=== PATIENT | male | born 1945 | race Caucasian/White ===

== ENCOUNTER 2016-09-10 12:27 | Inpatient (IN) | payer MEDICARE, OTHER ==
--- NOTE | 2016-09-10 12:33 | ER Document Report ---
ED General - General Stated Complaint: ALTERED MENTAL STATUS Time Seen by Provider: 09/10/16 12:29 Mode of Arrival: Medic Information source: Emergency Med Personnel TRAVEL OUTSIDE OF THE [place] IN LAST 30 DAYS: No - HPI Patient complains to provider of: Altered mental status, recent fall Onset: Yesterday Onset/Duration: Gradual Quality of pain: Achy Severity: Moderate Pain Level: 3 Associated symptoms: Slow to respond Notes: Patient is a 71-year-old male brought to the emergency room by EMS for change in mental status, a caregiver reports that he stopped out to the house yesterday to see patient, he had a slip and fall resulting in injury to his right forearm, EMS came out to the house but patient refused to come to the emergency room to be seen, the caregiver stop back again today, found patient in same position that he was in yesterday as though he had not moved at all, he likely did not eat or drink anything, caregiver reports patient has altered mental status, as he is normally awake and alert, ambulates throughout his house on his own as he lives alone and cares for himself, however today was different, when EMS arrived patient is noted to be severely hypotensive and hypoxic, patient's mental status is altered at this point and he is unable to provide any further information - Related Data Allergies/Adverse Reactions: No Known Allergies Allergy (Verified 09/10/16 13:09) Home Medications: Current Home Medications Aspirin [Aspirin 81 mg Chewable Tablet] 81 mg PO DAILY 09/10/16 [History] Lisinopril [Zestril] 40 mg PO 09/10/16 [History] Past Medical History - General Information source: Friend - Social History Smoking Status: Unknown if Ever Smoked Family History: Reviewed & Not Pertinent - Past Medical History Cardiac Medical History: Reports: Hx Hypertension Review of Systems - Review of Systems -: Yes ROS unobtainable due to patient's medical condition Neurological/Psychological: Confusion Physical Exam - Vital signs Vitals: Temp Resp Pulse Ox 98.1 F 20 100 09/10/16 12:30 09/10/16 12:30 09/10/16 12:30 Interpretation: Hypotensive - General General appearance: Lethargic In distress: Severe - HEENT Head: Normocephalic, Atraumatic Eyes: Normal Conjunctiva: Purulent discharge - Small amount of discharge with crusting on the eye lashes Eyelashes: Matted Pupils: PERRL Mucous membranes: Dry Pharynx: Normal Neck: Normal - Respiratory Respiratory status: Respiratory distress, Depressed respirations, Tachypnea Chest status: Nontender Breath sounds: Decreased air movement - Cardiovascular Rhythm: Regular Heart sounds: Normal auscultation - Abdominal Inspection: Other - Emaciated Distension: No distension Bowel sounds: Hypoactive Tenderness: Nontender Organomegaly: No organomegaly - Back Back: Normal - Extremities Forearm: Other - Right forearm swelling with erythema and abrasions, tender to palpate, distal sensation and motor is intact with 2+ radial pulses and brisk capillary refill Thigh: Other - Large skin tear to the right lateral thigh - Neurological Cognition: Confused Orientation: Disoriented to place, Disoriented to time, Disoriented to events Edmond Coma Scale Eye Opening: To Voice Edmond Coma Scale Verbal: Confused Bricelyn Coma Scale Motor: Obeys Commands Edmond Coma Scale Total: 13 - Skin Skin Moisture: Dry Skin Color: Pale Course - Re-evaluation Re-evalutation: 09/10/16 17:38 Patient arrived in distress with hypotension, hypoxia, requiring immediate attention and intervention, labs are consistent with severe rhabdomyolysis with kidney failure and liver enzyme elevation, requiring admission to the ICU - Vital Signs Vital signs: Temp Pulse Resp BP Pulse Ox 98.6 F 72 22 H 89/67 L 100 09/10/16 17:20 09/10/16 17:20 09/10/16 17:20 09/10/16 17:20 09/10/16 17:20 - Laboratory Result Diagrams: 09/10/16 13:32 09/10/16 13:32 Laboratory results interpreted by me: 09/10/16 09/10/16 09/10/16 12:50 13:32 13:32 WBC Seg Neuts % (Manual) Lymphocytes % (Manual) Abs Neuts (Manual) Abs Lymphs (Manual) Sodium 151.5 H Chloride 113 H BUN 105 H Creatinine 6.05 H Est GFR ( Amer) 11 L Est GFR (Non-Af Amer) 9 L Calcium 7.2 L Direct Bilirubin 0.5 H AST 1291 H ALT 330 H Creatine Kinase CK-MB (CK-2) 296.00 H Total Protein 5.9 L Albumin 3.4 L Urine Protein 100 H Urine Blood LARGE H Urine Urobilinogen 2.0 H 09/10/16 09/10/16 13:32 13:32 WBC 12.5 H Seg Neuts % (Manual) 95 H Lymphocytes % (Manual) 1 L Abs Neuts (Manual) 11.9 H Abs Lymphs (Manual) 0.1 L Sodium Chloride BUN Creatinine Est GFR ( Amer) Est GFR (Non-Af Amer) Calcium Direct Bilirubin AST ALT Creatine Kinase 30702 H CK-MB (CK-2) Total Protein Albumin Urine Protein Urine Blood Urine Urobilinogen - Diagnostic Test Radiology reviewed: Image reviewed, Reports reviewed - EKG Interpretation by Mi EKG shows normal: Sinus rhythm Rate: Normal Rhythm: NSR - Transfer of Care Care transferred to following provider: Dr Rodriguez Critical Care Note - Critical Care Note Total time excluding time spent on procedures (mins): 60 Comments: Patient arrived with altered mental status, hypotension and hypoxia, requiring immediate attention, labs consistent with severe rhabdomyolysis with kidney and liver failure, requiring admission to the ICU Discharge - Discharge Clinical Impression: Encephalopathy Rhabdomyolysis Qualifiers: Rhabdomyolysis type: non-traumatic Qualified Code(s): M62.82 - Rhabdomyolysis Condition: Serious Disposition: ADMITTED INPATIENT Admitting Provider: Michael Unit Admitted: ICU
[2016-09-10 13:04] LABS: VENOUS BLOOD BASE EXCESS -4.8 mmol/L; VENOUS BLOOD HCO3 20.6 mmol/L (20-32); VENOUS BLOOD PCO2 39.3 mmHg (35-63); VENOUS BLOOD PH 7.34 (7.30-7.42)
[2016-09-10 13:08] LABS: AMORPHOUS SEDIMENT,URINE TRACE /HPF; APPEARANCE,URINE SLIGHTLY-CLOUDY; BILIRUBIN,URINE NEGATIVE (NEGATIVE); GLUCOSE, URINE NEGATIVE (NEGATIVE); KETONES,URINE NEGATIVE (NEGATIVE); LEUKOCYTE ESTERASE,URINE NEGATIVE (NEGATIVE); NITRITE,URINE NEGATIVE (NEGATIVE); PROTEIN,URINE 100 mg/dL (NEGATIVE); URINE SPECIFIC GRAVITY 1.026
--- NOTE | 2016-09-10 13:29 | RADIOLOGY REPORT (SQ) ---
EXAM DESCRIPTION: CT HEAD WITHOUT COMPLETED DATE/TIME: 09/10/2016 1:14 pm REASON FOR STUDY: ams COMPARISON: 12/24/2015 TECHNIQUE: Axial images acquired through the brain without intravenous contrast. Images reviewed wi th bone, brain and subdural windows. Images stored on PACS. All CT scanners at this facility use dose modulation, iterative reconstruction, and/or weight based d osing when appropriate to reduce radiation dose to as low as reasonably achievable (ALARA). [facility]: Dose Right [facility]: CareDose [facility]: Dose Right [facility]: Teradose 4D [facility]: Smart [employer] RADIATION DOSE: Up-to-date CT equipment and radiation dose reduction techniques were employed. CTDIv ol: 49.0 mGy. DLP: 881 mGy-cm.mGy. LIMITATIONS: None. FINDINGS: VENTRICLES: Prominent. CEREBRUM: No masses. No hemorrhage. No midline shift. Areas of low density in the white matter mos t likely due to chronic micro-vascular ischemic change. No evidence for acute infarction. CEREBELLUM: No masses. No hemorrhage. No alteration of density. No evidence for acute infarction. EXTRAAXIAL SPACES: Age-related involutional change. No fluid collections. No masses. ORBITS AND GLOBE: No intra- or extraconal masses. Normal contour of globe without masses. CALVARIUM: No fracture. PARANASAL SINUSES: No fluid or mucosal thickening. SOFT TISSUES: No mass or hematoma. OTHER: No other significant finding. IMPRESSION: CHRONIC CHANGES OF ATROPHY AND MICROVASCULAR ISCHEMIA. NO ACUTE PROCESS. TECHNICAL DOCUMENTATION: JOB ID: [id number] Quality ID # [id number]: Final reports with documentation of one or more dose reduction techniques (e.g., Au tomated exposure control, adjustment of the mA and/or kV according to patient size, use of iterative reconstruction technique) 2010 [employer]- All Rights Reserved
[2016-09-10] MEDS: NORMAL SALINE 1000 ML 1,000 ML IV PRN ×2 (13:31→13:48)
[2016-09-10 13:49] LABS: HEMATOCRIT 46.3 % (37.9-51.0); HEMOGLOBIN 15.6 g/dL (13.5-17.0); HGB HCT DIFFERENCE 0.5; MEAN CORPUSCULAR HEMOGLOBIN 30.9 pg (27.0-33.4); MEAN CORPUSCULAR HGB CONC 33.7 g/dL (32.0-36.0); MEAN CORPUSCULAR VOLUME 92 fl (80-97); RED BLOOD COUNT 5.05 10^6/uL (4.35-5.55); RED CELL DISTRIBUTION WIDTH 13.7 % (11.5-14.0); WHITE BLOOD COUNT 12.5 10^3/uL (4.0-10.5)
[2016-09-10 14:03] LABS: ALANINE AMINOTRANSFERASE 330 U/L (21-72); ALBUMIN 3.4 g/dL (3.5-5.0); ALKALINE PHOSPHATASE 55 U/L (38-126); ANION GAP 17 (5-19); BILIRUBIN,DIRECT 0.5 mg/dL (0.0-0.4); BILIRUBIN,TOTAL 1.1 mg/dL (0.2-1.3); BLOOD UREA NITROGEN 105 mg/dL (7-20); CALCIUM 7.2 mg/dL (8.4-10.2); CARBON DIOXIDE 22 mmol/L (22-30); CHLORIDE 113 mmol/L (98-107); CREATININE RESULT 6.05 mg/dL (0.52-1.25); GLUCOSE 94 mg/dL (75-110); POTASSIUM 4.6 mmol/L (3.6-5.0); SODIUM 151.5 mmol/L (137-145); TOTAL PROTEIN 5.9 g/dL (6.3-8.2)
[2016-09-10 14:12] LABS: BASOPHILS % (MANUAL) 0 % (0-2); EOSINOPHILS % (MANUAL) 0 % (0-6); LYMPHOCYTES % (MANUAL) 1 % (13-45); TOTAL CELLS COUNTED 100
[2016-09-10 14:13] LABS: RBC MORPHOLOGY COMMENT NORMO-CYTIC/CHROMIC
[2016-09-10] MEDS ORDERED: NORMAL SALINE 1000 ML 1,000 ML IV PRN ×3 (14:13→15:45)
[2016-09-10 14:17] LABS: ALCOHOL < 10 mg/dL (NONE DETECTED); ASPARTATE AMINO TRANSFERASE 1291 U/L (17-59)
[2016-09-10 14:19] LABS: TROPONIN I 0.233 ng/mL
--- NOTE | 2016-09-10 14:20 | RADIOLOGY REPORT (SQ) ---
EXAM DESCRIPTION: FOREARM RIGHT COMPLETED DATE/TIME: 09/10/2016 2:10 pm REASON FOR STUDY: fall COMPARISON: None. NUMBER OF VIEWS: Two views. TECHNIQUE: Two radiographic images acquired of the right forearm, including elbow and wrist in at le ast one projection. LIMITATIONS: None. FINDINGS: MINERALIZATION: Normal. BONES: No acute fracture. No worrisome bone lesions. SOFT TISSUES: No obvious swelling or foreign body. OTHER: No other significant finding. IMPRESSION: NEGATIVE STUDY OF THE RIGHT FOREARM. NO RADIOGRAPHIC EVIDENCE OF ACUTE INJURY. TECHNICAL DOCUMENTATION: JOB ID: [id number] [employer]- All Rights Reserved
--- NOTE | 2016-09-10 14:20 | RADIOLOGY REPORT (SQ) ---
EXAM DESCRIPTION: CHEST SINGLE VIEW COMPLETED DATE/TIME: 09/10/2016 2:10 pm REASON FOR STUDY: ams COMPARISON: None. EXAM PARAMETERS: NUMBER OF VIEWS: One view. TECHNIQUE: Single frontal radiographic view of the chest acquired. RADIATION DOSE: NA LIMITATIONS: None. FINDINGS: LUNGS AND PLEURA: No opacities, masses or pneumothorax. No pleural effusion. MEDIASTINUM AND HILAR STRUCTURES: No masses. Contour normal. HEART AND VASCULAR STRUCTURES: Heart normal in size. Normal vasculature. BONES: No acute findings. HARDWARE: None in the chest. OTHER: No other significant finding. IMPRESSION: NO ACUTE RADIOGRAPHIC FINDING IN THE CHEST. TECHNICAL DOCUMENTATION: JOB ID: [id number]
--- NOTE | 2016-09-10 14:21 | RADIOLOGY REPORT (SQ) ---
EXAM DESCRIPTION: PELVIS AP COMPLETED DATE/TIME: 09/10/2016 2:10 pm REASON FOR STUDY: fall COMPARISON: None. NUMBER OF VIEWS: One view TECHNIQUE: AP Pelvis LIMITATIONS: None. FINDINGS: MINERALIZATION: Normal. HIPS: No acute fracture or dislocation. No worrisome bone lesions. PELVIS AND SACRUM: No acute fracture or dislocation. No worrisome bone lesions. PUBIS AND ISCHIUM: No acute fracture. LOWER LUMBAR SPINE: No significant findings as visualized. SOFT TISSUES: No findings. OTHER: No other significant finding. IMPRESSION: NEGATIVE STUDY OF THE PELVIS. TECHNICAL DOCUMENTATION: JOB ID: [id number] [employer]- All Rights Reserved
[2016-09-10] MEDS ORDERED: SODIUM BICARBONATE IV ONE ×2 (15:07)
[2016-09-10] MEDS ORDERED: NORMAL SALINE IV ONE ×2 (15:07)
[2016-09-10] MEDS ORDERED: SODIUM BICARBONATE 0 ML IV ONE (15:40)
[2016-09-10] MEDS ORDERED: SODIUM BICARBONATE 8.4% INJ 50 MEQ/50 ML DISP.SYRIN IV ONE (15:47)
[2016-09-10] MEDS ORDERED: ADENOSINE INJ/PF 6 MG/2 ML SDV IV ONE (16:09)
--- NOTE | 2016-09-10 16:14 | PDOC H&P ---
History of Present Illness Admission Date/PCP: 09/10/16 15:25 RUPESH FERNÁNDEZ MD Patient complains of: laid on floor last night History of Present Illness: PATRICE WISDOM is a 71 year old male with lewy body dementia since last year on donepezil from [facility] with parkinsons syndrome on rasagiline from Dr Mendez. [facility] said to stop quetiapine. Last month pressure was 168, and I increased lisinopril to 40mg daily. 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 Psychiatric Medical History: Reports: Dementia Traumatic Medical History: Reports: None Hematology: Reports: None Infectious Medical History: Reports: None Past Surgical History Past Surgical History: Reports: Other - melanoma Social History Information Source: Office Lives with: Alone Smoking Status: Never Smoker Frequency of Alcohol Use: Rare Hx Recreational Drug Use: No Drugs: None Hx Prescription Drug Abuse: No - Advance Directive Resuscitation Status: Full Code Family History Family History: Reviewed & Not Pertinent Parental Family History Reviewed: Yes Children Family History Reviewed: Yes Sibling(s) Family History Reviewed.: Yes Medication/Allergy Home Medications: Donepezil HCl 10 mg PO QHS 12/26/15 Rasagiline Mesylate [Azilect] 1 mg PO DAILY 12/26/15 Aspirin [Aspirin 81 mg Chewable Tablet] 81 mg PO DAILY 09/10/16 Lisinopril [Zestril] 40 mg PO 09/10/16 Allergies/Adverse Reactions: No Known Allergies Allergy (Verified 09/10/16 13:09) Review of Systems ROS unobtainable: Due to mental status Constitutional: ABSENT: fever(s), headache(s), weight loss Cardiovascular: ABSENT: chest pain, dyspnea on exertion, orthropnea Respiratory: ABSENT: cough Gastrointestinal: PRESENT: constipation, vomiting. ABSENT: diarrhea, hematochezia Genitourinary: ABSENT: dysuria, hematuria Neurological: PRESENT: frequent falls, memory loss, tremor(s) Physical Exam Vital Signs: Temp Pulse Resp BP Pulse Ox 98.1 F 25 H 109/73 100 09/10/16 12:30 09/10/16 15:16 09/10/16 15:16 09/10/16 15:16 General appearance: PRESENT: mild distress Eye exam: PRESENT: EOMI. ABSENT: conjunctival injection, nystagmus, scleral icterus Mouth exam: PRESENT: dry mucosa Neck exam: ABSENT: lymphadenopathy, thyromegaly, tracheal deviation Respiratory exam: PRESENT: clear to auscultation michael Cardiovascular exam: ABSENT: diastolic murmur, irregular rhythm, systolic murmur GI/Abdominal exam: ABSENT: mass, organolmegaly, tenderness Extremities exam: ABSENT: pedal edema Neurological exam: PRESENT: altered, oriented to time, other - diffuse rigidity & bradykinesia. ABSENT: motor sensory deficit, aphasic Psychiatric exam: PRESENT: appropriate affect Focused psych exam: ABSENT: psychomotor agitation Skin exam: PRESENT: skin tears - volar R forearm Results Laboratory Results: Abnormal - 24 hr 09/10/16 09/10/16 09/10/16 12:50 13:32 13:32 WBC Seg Neuts % (Manual) Lymphocytes % (Manual) Abs Neuts (Manual) Abs Lymphs (Manual) Sodium 151.5 H Chloride 113 H BUN 105 H Creatinine 6.05 H Est GFR ( Amer) 11 L Est GFR (Non-Af Amer) 9 L Calcium 7.2 L Direct Bilirubin 0.5 H AST 1291 H ALT 330 H Creatine Kinase CK-MB (CK-2) 296.00 H Total Protein 5.9 L Albumin 3.4 L Urine Protein 100 H Urine Blood LARGE H Urine Urobilinogen 2.0 H 09/10/16 09/10/16 13:32 13:32 WBC 12.5 H Seg Neuts % (Manual) 95 H Lymphocytes % (Manual) 1 L Abs Neuts (Manual) 11.9 H Abs Lymphs (Manual) 0.1 L Sodium Chloride BUN Creatinine Est GFR ( Amer) Est GFR (Non-Af Amer) Calcium Direct Bilirubin AST ALT Creatine Kinase 03574 H CK-MB (CK-2) Total Protein Albumin Urine Protein Urine Blood Urine Urobilinogen Impressions: Chest X-Ray 09/10/16 12:29 IMPRESSION: NO ACUTE RADIOGRAPHIC FINDING IN THE CHEST. Forearm X-Ray 09/10/16 12:30 IMPRESSION: NEGATIVE STUDY OF THE RIGHT FOREARM. NO RADIOGRAPHIC EVIDENCE OF ACUTE INJURY. Head CT 09/10/16 12:30 IMPRESSION: CHRONIC CHANGES OF ATROPHY AND MICROVASCULAR ISCHEMIA. NO ACUTE PROCESS. Pelvis X-Ray 09/10/16 12:30 IMPRESSION: NEGATIVE STUDY OF THE PELVIS. Assessment & Plan - Diagnosis (1) Rhabdomyolysis Qualifiers: Rhabdomyolysis type: non-traumatic Qualified Code(s): M62.82 - Rhabdomyolysis Is this a current diagnosis for this admission?: YesPlan: saline (2) GORGE (acute kidney injury) Is this a current diagnosis for this admission?: YesPlan: saline (3) Lewy body Parkinson disease Is this a current diagnosis for this admission?: YesPlan: rasagiline nonformulary. Consider ropinarole. - Inpatient Certification Based on my medical assessment, after consideration of the patient's comorbidities, presenting symptoms, or acuity I expect that the services needed warrant INPATIENT care.: Yes I certify that my determination is in accordance with my understanding of Medicare's requirements for reasonable and necessary INPATIENT services [42 CFR 412.3e].: Yes Medical Necessity: Significant Comorbidiites Make Outpatient Treatment Too Risky , Need Close Monitoring Due to Risk of Patient Decompensation, Need For IV Fluids, Need For Continuous Telemetry Monitoring, Risk of Complication if Not Cared For in Hospital, Risk of Diagnosis Which Will Require Inpatient Eval/Care/ Monitoring
[2016-09-10] MEDS ORDERED: BENZTROPINE MESYLATE INJ 2 MG/2 ML AMPULE IM ONE (17:00)
--- NOTE | 2016-09-10 17:11 | EKG REPORT ---
SEVERITY:- OTHERWISE NORMAL ECG - SINUS RHYTHM ATRIAL PREMATURE COMPLEX LOW VOLTAGE IN FRONTAL LEADS : Confirmed by: Ivon Velazquez MD 10-Sep-2016 17:10:14
--- NOTE | 2016-09-10 17:11 | EKG REPORT ---
SEVERITY:- BORDERLINE ECG - SINUS RHYTHM BORDERLINE T ABNORMALITIES, ANT-LAT LEADS : Confirmed by: Ivon Velazquez MD 10-Sep-2016 17:11:20
[2016-09-10] MEDS ORDERED: DEXTROSE 50%-WATER 25 GM/50 ML DISP.SYRIN IV ONE ×2 (17:29→19:00)
[2016-09-10] MEDS ORDERED: DEXTROSE 40% GEL 15 GM TUBE X 2 PO PRN ×2 (19:04→19:31)
[2016-09-10] MEDS ORDERED: DEXTROSE 40% GEL 15 GM TUBE PO PRN ×2 (19:04→19:31)
[2016-09-10] MEDS ORDERED: DEXTROSE 50%-WATER SYRINGE 25 GM/50 ML DOSE IV PRN ×2 (19:04→19:31)
[2016-09-10] MEDS ORDERED: GLUCAGON,HUMAN RECOMB 1 MG INJ IM PRN ×2 (19:04→19:31)
[2016-09-10] MEDS ORDERED: DEXTROSE 50%-WATER SYRINGE 12.5 GM/25 ML DOSE IV PRN ×2 (19:04→19:31)
[2016-09-10] MEDS ORDERED: INSULIN REG, HUMAN 100 UNIT/ML 3 ML VIAL (PYX) SUBCUT PRN (19:31)
[2016-09-10] MEDS: DEXTROSE 5%-NORMAL SALINE 1,000 ML IV PRN (21:11)
[2016-09-10] MEDS: FAMOTIDINE INJ/PF 20 MG/2 ML SDV IV SCH (21:11)
[2016-09-11] MEDS: DEXTROSE 5%-NORMAL SALINE 1,000 ML IV PRN ×2 (01:54→05:33)
--- NOTE | 2016-09-11 07:19 | PDOC PROGRESS REPORT ---
Subjective Progress Note for:: 09/11/16 Subjective:: moans Physical Exam Vital Signs: Temp Pulse Resp BP Pulse Ox 98.6 F 63 15 94/73 L 100 09/10/16 17:20 09/10/16 20:00 09/11/16 06:00 09/11/16 05:07 09/11/16 06:00 Intake & Output 09/09/16 09/10/16 09/11/16 07:59 07:59 07:59 Intake Total 3005 Output Total 275 Balance 2730 Weight 158 lb 15.253 oz General appearance: PRESENT: mild distress Respiratory exam: PRESENT: clear to auscultation michael Cardiovascular exam: ABSENT: diastolic murmur, irregular rhythm, systolic murmur GI/Abdominal exam: ABSENT: mass, organolmegaly, tenderness Neurological exam: PRESENT: altered Skin exam: PRESENT: other - bulla broke:R [id number]/R hip6cm. Stage 1 purple decub L hip8cm Results Laboratory Results: Abnormal - 24 hr 09/10/16 09/10/16 09/10/16 12:50 13:32 13:32 WBC Seg Neuts % (Manual) Lymphocytes % (Manual) Abs Neuts (Manual) Abs Lymphs (Manual) Sodium 151.5 H Chloride 113 H BUN 105 H Creatinine 6.05 H Est GFR ( Amer) 11 L Est GFR (Non-Af Amer) 9 L POC Glucose Calcium 7.2 L Direct Bilirubin 0.5 H AST 1291 H ALT 330 H Creatine Kinase CK-MB (CK-2) 296.00 H Total Protein 5.9 L Albumin 3.4 L Urine Protein 100 H Urine Blood LARGE H Urine Urobilinogen 2.0 H 09/10/16 09/10/16 09/10/16 13:32 13:32 17:26 WBC 12.5 H Seg Neuts % (Manual) 95 H Lymphocytes % (Manual) 1 L Abs Neuts (Manual) 11.9 H Abs Lymphs (Manual) 0.1 L Sodium Chloride BUN Creatinine Est GFR ( Amer) Est GFR (Non-Af Amer) POC Glucose 61 L Calcium Direct Bilirubin AST ALT Creatine Kinase 00750 H CK-MB (CK-2) Total Protein Albumin Urine Protein Urine Blood Urine Urobilinogen 09/10/16 09/10/16 09/11/16 19:15 22:14 01:16 WBC Seg Neuts % (Manual) Lymphocytes % (Manual) Abs Neuts (Manual) Abs Lymphs (Manual) Sodium Chloride BUN Creatinine Est GFR ( Amer) Est GFR (Non-Af Amer) POC Glucose 148 H Calcium Direct Bilirubin AST ALT Creatine Kinase 20338 H 87336 H CK-MB (CK-2) Total Protein Albumin Urine Protein Urine Blood Urine Urobilinogen Impressions: Chest X-Ray 09/10/16 12:29 IMPRESSION: NO ACUTE RADIOGRAPHIC FINDING IN THE CHEST. Forearm X-Ray 09/10/16 12:30 IMPRESSION: NEGATIVE STUDY OF THE RIGHT FOREARM. NO RADIOGRAPHIC EVIDENCE OF ACUTE INJURY. Head CT 09/10/16 12:30 IMPRESSION: CHRONIC CHANGES OF ATROPHY AND MICROVASCULAR ISCHEMIA. NO ACUTE PROCESS. Pelvis X-Ray 09/10/16 12:30 IMPRESSION: NEGATIVE STUDY OF THE PELVIS. Assessment & Plan - Diagnosis (1) Rhabdomyolysis Qualifiers: Rhabdomyolysis type: non-traumatic Qualified Code(s): M62.82 - Rhabdomyolysis Is this a current diagnosis for this admission?: YesPlan: peaked. Slowed ivf for oliguria (2) GORGE (acute kidney injury) Is this a current diagnosis for this admission?: YesPlan: consult nephrology (3) Lewy body Parkinson disease Is this a current diagnosis for this admission?: YesPlan: still rigid inspite of benztropine. No gag so npo - Inpatient Certification Medical Necessity: Significant Comorbidiites Make Outpatient Treatment Too Risky , Need Close Monitoring Due to Risk of Patient Decompensation, Need For IV Fluids, Need For Continuous Telemetry Monitoring, Risk of Complication if Not Cared For in Hospital, Risk of Diagnosis Which Will Require Inpatient Eval/Care/ Monitoring
[2016-09-11 07:32] LABS: ABSOLUTE LYMPHOCYTES (AUTO) 0.9 10^3/uL (0.5-4.7); ABSOLUTE MONOCYTES (AUTO) 0.6 10^3/uL (0.1-1.4); ABSOLUTE NEUT (AUTO) 5.8 10^3/uL (1.7-8.2); BASOPHILS % (AUTO) 0.2 % (0-2); HEMATOCRIT 37.3 % (37.9-51.0); HGB HCT DIFFERENCE 0.2; LYMPHOCYTES % (AUTO) 12.5 % (13-45); MEAN CORPUSCULAR HEMOGLOBIN 31.1 pg (27.0-33.4); MEAN CORPUSCULAR HGB CONC 33.5 g/dL (32.0-36.0); MEAN CORPUSCULAR VOLUME 93 fl (80-97); MONOCYTES % (AUTO) 8.2 % (3-13); RED BLOOD COUNT 4.02 10^6/uL (4.35-5.55); SEGMENTED NEUTROPHILS % (AUTO) 79.1 % (42-78); WHITE BLOOD COUNT 7.3 10^3/uL (4.0-10.5)
[2016-09-11 07:47] LABS: HEMOGLOBIN 12.5 g/dL (13.5-17.0)
[2016-09-11 07:52] LABS: ALANINE AMINOTRANSFERASE 378 U/L (21-72); ALBUMIN 2.2 g/dL (3.5-5.0); ALKALINE PHOSPHATASE 39 U/L (38-126); ANION GAP 11 (5-19); BILIRUBIN,DIRECT 0.4 mg/dL (0.0-0.4); BILIRUBIN,TOTAL 0.8 mg/dL (0.2-1.3); BLOOD UREA NITROGEN 102 mg/dL (7-20); CARBON DIOXIDE 16 mmol/L (22-30); CHLORIDE 125 mmol/L (98-107); CREATININE RESULT 5.38 mg/dL (0.52-1.25); GLUCOSE 152 mg/dL (75-110); MAGNESIUM 2.6 mg/dL (1.6-2.3); PHOSPHORUS 7.1 mg/dL (2.5-4.5); POTASSIUM 4.7 mmol/L (3.6-5.0); SODIUM 152.3 mmol/L (137-145); TOTAL PROTEIN 4.2 g/dL (6.3-8.2)
[2016-09-11 08:01] LABS: ASPARTATE AMINO TRANSFERASE 1152 U/L (17-59)
[2016-09-11 08:07] LABS: CALCIUM 5.8 mg/dL (8.4-10.2)
[2016-09-11 08:22] LABS: CREATINE KINASE 67956 U/L (55-170)
[2016-09-11] MEDS ORDERED: DEXTROSE 5%-WATER 1000 ML 1,000 ML with SODIUM BICARBONATE 150 MEQ IV PRN ×2 (09:47)
[2016-09-11] MEDS ORDERED: HEPARIN SOD (PORCINE) 1,000 UNIT/ML 10 ML VIAL IV PRN ×2 (09:51→15:28)
[2016-09-11] MEDS ORDERED: ENOXAPARIN SODIUM INJ 30 MG/0.3 ML DISP.SYRIN SUBCUT SCH (10:00)
[2016-09-11] MEDS: FAMOTIDINE INJ/PF 20 MG/2 ML SDV IV SCH ×2 (10:22→21:13)
[2016-09-11] MEDS: 1/2 NORMAL SALINE 1,000 ML with SODIUM BICARBONATE 50 MEQ IV PRN ×2 (10:38)
[2016-09-11] MEDS ORDERED: CALCIUM GLUCONATE 1000 MG/10 ML INJ IV ONE (11:00)
[2016-09-11] MEDS ORDERED: CEFTRIAXONE 1 GM/D5W RTU 1 GM/50 ML RTUPB IV ONE (11:00)
[2016-09-11] MEDS ORDERED: CALCIUM GLUCONATE 1,000 MG in DEXTROSE 5%-WATER 50 ML IV ONE (11:00)
--- NOTE | 2016-09-11 12:09 | EKG REPORT ---
SEVERITY:- ABNORMAL ECG - ATRIAL FLUTTER, CANNOT BE EXCLUDED ,BUT THERE ARE BASELINE ARTIFACTS.REPEAT EKG MULTIFORM VENTRICULAR PREMATURE COMPLEXES LOW VOLTAGE IN FRONTAL LEADS : Confirmed by: Ivon Velazquez MD 11-Sep-2016 12:08:52
[2016-09-11] MEDS ORDERED: LIDOCAINE 1% INJ-PF (10 MG/ML) 30 ML SDV ONE (12:24)
--- NOTE | 2016-09-11 13:24 | OPERATIVE REPORT E ---
Operative Report NAME: PATRICE WISDOM : 1945 AGE: 71Y DATE OF SURGERY: 09/11/2016 ROOM: 607 PREOPERATIVE DIAGNOSIS: Acute renal failure needing dialysis access. POSTOPERATIVE DIAGNOSIS: Acute renal failure needing dialysis access. PROCEDURE: Placement of the right femoral dialysis catheter under ultrasound guidance. SURGEON: ISAIAH MIDDLETON M.D. ANESTHESIA: Local. INDICATION: This is a 71-year-old male who needed IV access for hemodialysis. DESCRIPTION OF PROCEDURE: After adequate placement of patient in a supine position, the right groin was then prepped and draped in the usual sterile fashion. We used an ultrasound and the right femoral vein was identified. Local anesthesia was infiltrated along the right femoral vein site and the vein was then punctured percutaneously and a guidewire pressed through the needle into the vein and towards the inferior vena cava. Needle was removed and the puncture site enlarged. A dialysis catheter was then inserted through the wire towards the area of the inferior vena cava. The whole catheter was inserted through the hub and just allowing 1 cm from the puncture site allowing a biopatch to be placed under it. Next, the catheter was then anchored to the skin with 3-0 nylon. All the port sites were irrigated with saline solution after aspirating blood easily. Sterile dressing was placed over the insertion site. The patient tolerated the procedure well. Patient to have hemodialysis today through the catheter site. Patient tolerated procedure well. DICTATING PHYSICIAN: ISAIAH MIDDLETON M.D. [id number] PHY#: [id number] ID: [id number] JOB#: [id number] ACCT: [id number] cc:ISAIAH MIDDLETON M.D. > MTDD
[2016-09-11] MEDS ORDERED: CALCIUM GLUCONATE 1,000 MG in DEXTROSE 5%-WATER 50 ML IV SCH (14:00)
--- NOTE | 2016-09-11 14:13 | PDOC CONSULTATION ---
Consultation Consult Date: 09/11/16 Consult reason:: AK I, oligo anuric. 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 Patient rather poorly responsive at the time. Unsure exactly how long he was on the floor. According to his stepson the patient lives by himself and is able to do most of his ADLs by himself. Patient was evaluated in the ER and found to have GORGE secondary to severe rhabdomyolysis. He was begun on IV fluid hydration. He was very poorly responsive. He is admitted to ICU.He has received approximately 8 L of fluid but is now currently oligo anuric. Patient is poorly responsive to your questions. He rather just moans. Tries to answer some questions but is able to just mumble. He is quite stiff and is not moving his limbs at all. Other evaluations revealed that his labs shows that he is got hyponatremia, hypocalcemia, hyperphosphatemia and GORGE. 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 Children Family History Reviewed: Yes - Denies Any Family History of CKD. Sibling(s) Family History Reviewed.: Yes Medication/Allergy Home Medications: Donepezil HCl 10 mg PO QHS 12/26/15 Rasagiline Mesylate [Azilect] 1 mg PO DAILY 12/26/15 Aspirin [Aspirin 81 mg Chewable Tablet] 81 mg PO DAILY 09/10/16 Lisinopril [Zestril] 40 mg PO DAILY 09/10/16 Quetiapine Fumarate 100 mg PO QHS 09/10/16 Allergies/Adverse Reactions: No Known Allergies Allergy (Verified 09/10/16 13:09) Review of Systems Review of Systems: Unable to be obtained as patient is quite obtunded. However I had a lengthy discussion with the stepson who was by the bedside. Chart was reviewed and discussions were done with the treating nurse as well. Physical Exam Vital Signs: Temp Pulse Resp BP Pulse Ox 98.1 F 57 L 17 115/69 100 09/11/16 08:00 09/11/16 07:27 09/11/16 13:00 09/11/16 12:54 09/11/16 13:00 Intake & Output 09/10/16 09/11/16 09/12/16 06:59 06:59 06:59 Intake Total 3005 Output Total 275 20 Balance 2730 -20 Weight 72.1 kg Exam: Patient is looking quite sickly. He is quite obtunded and poorly responsive to questions. He has got generalized rigidity. Eye exam: PRESENT: conjunctiva pink, EOMI, PERRLA. ABSENT: nystagmus Ear exam: PRESENT: normal external ear exam Mouth exam: PRESENT: neck supple. ABSENT: moist Neck exam: ABSENT: lymphadenopathy, meningismus, tenderness, thyromegaly, tracheal deviation Respiratory exam: PRESENT: clear to auscultation michael. ABSENT: crackles, rhonchi Cardiovascular exam: PRESENT: +S1, +S2 GI/Abdominal exam: PRESENT: normal bowel sounds, soft. ABSENT: organomegaly, tenderness Extremities exam: ABSENT: pedal edema Neurological exam: PRESENT: altered Skin exam: PRESENT: dry. ABSENT: erythema, mottled, rash Results Laboratory Results: 09/11/16 07:17 09/11/16 07:09/11/16 09/11/16 07: 07: WBC 7.3 RBC 4.02 L Hgb 12.5 L D Hct 37.3 L MCV 93 MCH 31.1 MCHC 33.5 RDW 14.0 Plt Count 102 L Seg Neutrophils % 79.1 H Lymphocytes % 12.5 L Monocytes % 8.2 Eosinophils % 0.0 Basophils % 0.2 Absolute Neutrophils 5.8 Absolute Lymphocytes 0.9 Absolute Monocytes 0.6 Absolute Eosinophils 0.0 Absolute Basophils 0.0 Sodium 152.3 H Potassium 4.7 Chloride 125 H Carbon Dioxide 16 L Anion Gap 11 BUN 102 H Creatinine 5.38 H Est GFR ( Amer) 13 L Est GFR (Non-Af Amer) 11 L Glucose 152 H Calcium 5.8 L* Phosphorus 7.1 H Magnesium 2.6 H Total Bilirubin 0.8 AST 1152 H ALT 378 H Alkaline Phosphatase 39 Total Protein 4.2 L Albumin 2.2 L 09/10/16 09/11/16 09/11/16 19:15 01:16 07:17 Creatine Kinase 32271 H 41381 H 17615 H Impressions: Chest X-Ray 09/10/16 12:29 IMPRESSION: NO ACUTE RADIOGRAPHIC FINDING IN THE CHEST. Forearm X-Ray 09/10/16 12:30 IMPRESSION: NEGATIVE STUDY OF THE RIGHT FOREARM. NO RADIOGRAPHIC EVIDENCE OF ACUTE INJURY. Head CT 09/10/16 12:30 IMPRESSION: CHRONIC CHANGES OF ATROPHY AND MICROVASCULAR ISCHEMIA. NO ACUTE PROCESS. Pelvis X-Ray 09/10/16 12:30 IMPRESSION: NEGATIVE STUDY OF THE PELVIS. Assessment & Plan - Diagnosis (1) Hypocalcemia Plan: No obvious signs of tetany. However generalized rigidity could be part of that. Treated immediately with IV calcium followed by regular replacementsOngoing hypocalcemia could continue because of ongoing rhabdomyolysis. Needs to monitor carefully. Order [id number] labs. (2) Hyperphosphatemia Plan: Secondary to acute rhabdo. Monitor. (3) GORGE (acute kidney injury) Is this a current diagnosis for this admission?: YesPlan: Secondary to acute rhabdomyolysis. Now oligo anuric.Showing features of uremia. Needs to be initiated on hemodialysis.Patient has not responded to IV fluids. Discussed complications of hemodialysis with sepsis and was at the bedside.Included bleeding, infections, hypotension which can sometimes lead to cardiac arrest. Subsequent willing to proceed.Orders have been placed. Discussions were done with the on-call surgeon for placement of a dialysis catheter. (4) Encephalopathy Plan: Secondary to acute rhabdomyolysis and uremia. Should respond to acute hemodialysis and appropriate conservative measures. (5) Lewy body Parkinson disease Is this a current diagnosis for this admission?: Yes (6) Rhabdomyolysis Qualifiers: Rhabdomyolysis type: non-traumatic Qualified Code(s): M62.82 - Rhabdomyolysis Is this a current diagnosis for this admission?: YesPlan: Secondary to prolonged immobility on the floor after an apparent fall. Severe CPK as seen by the high CPK numbers. As mentioned earlier starting hemodialysis and will monitor closely. (8) Metabolic acidosis Plan: Start him on a bicarb drip and titrate fluids. Discussed with the treating nurse Day. Following hemodialysis he can still continue on the bicarb drip for at least 24-[address] Fernández to watch it over the weekend as I will be off and to stop it if if his CO2 gets to around 22.
--- NOTE | 2016-09-11 16:35 | PDOC PROGRESS REPORT ---
Subjective Progress Note for:: 09/11/16 Subjective:: Patient was seen later in the day for hemodialysis. Is being supervised to ensure a safe and smooth procedure. Vital signs are stable. Plan to remove no fluids. Orders were discussed with the treating nurse. Physical Exam Vital Signs: Temp Pulse Resp BP Pulse Ox 98.1 F 57 L 20 122/75 99 09/11/16 08:00 09/11/16 07:27 09/11/16 14:35 09/11/16 14:35 09/11/16 14:35 Intake & Output 09/10/16 09/11/16 09/12/16 06:59 06:59 06:59 Intake Total 3005 Output Total 275 30 Balance 2730 -30 Weight 72.1 kg General appearance: PRESENT: no acute distress Respiratory exam: PRESENT: clear to auscultation michael. ABSENT: crackles, rhonchi Cardiovascular exam: PRESENT: +S1, +S2 GI/Abdominal exam: PRESENT: normal bowel sounds, soft. ABSENT: organomegaly, tenderness Results Laboratory Results: 09/11/16 07:17 09/11/16 07:17 09/11/16 09/11/16 07:17 07:17 WBC 7.3 RBC 4.02 L Hgb 12.5 L D Hct 37.3 L MCV 93 MCH 31.1 MCHC 33.5 RDW 14.0 Plt Count 102 L Seg Neutrophils % 79.1 H Lymphocytes % 12.5 L Monocytes % 8.2 Eosinophils % 0.0 Basophils % 0.2 Absolute Neutrophils 5.8 Absolute Lymphocytes 0.9 Absolute Monocytes 0.6 Absolute Eosinophils 0.0 Absolute Basophils 0.0 Sodium 152.3 H Potassium 4.7 Chloride 125 H Carbon Dioxide 16 L Anion Gap 11 BUN 102 H Creatinine 5.38 H Est GFR ( Amer) 13 L Est GFR (Non-Af Amer) 11 L Glucose 152 H Calcium 5.8 L* Phosphorus 7.1 H Magnesium 2.6 H Total Bilirubin 0.8 AST 1152 H ALT 378 H Alkaline Phosphatase 39 Total Protein 4.2 L Albumin 2.2 L 09/10/16 09/11/16 09/11/16 19:15 01:16 07:17 Creatine Kinase 02821 H 94345 H 31187 H Impressions: Chest X-Ray 09/10/16 12:29 IMPRESSION: NO ACUTE RADIOGRAPHIC FINDING IN THE CHEST. Forearm X-Ray 09/10/16 12:30 IMPRESSION: NEGATIVE STUDY OF THE RIGHT FOREARM. NO RADIOGRAPHIC EVIDENCE OF ACUTE INJURY. Head CT 09/10/16 12:30 IMPRESSION: CHRONIC CHANGES OF ATROPHY AND MICROVASCULAR ISCHEMIA. NO ACUTE PROCESS. Pelvis X-Ray 09/10/16 12:30 IMPRESSION: NEGATIVE STUDY OF THE PELVIS. Assessment & Plan - Diagnosis (1) Hypocalcemia Plan: No obvious signs of tetany. However generalized rigidity could be part of that. Treated immediately with IV calcium followed by regular replacementsOngoing hypocalcemia could continue because of ongoing rhabdomyolysis. Needs to monitor carefully. Order [id number] labs. (3) GORGE (acute kidney injury) Is this a current diagnosis for this admission?: YesPlan: Secondary to acute rhabdomyolysis. Now oligo anuric.Showing features of uremia. The patient has been initiated on hemodialysis.Patient has not responded to IV fluids. Dialysis is being supervised to ensure a safe and smooth procedure.Orders were discussed with the treating nurse Raegan. (5) Lewy body Parkinson disease Is this a current diagnosis for this admission?: Yes (6) Rhabdomyolysis Qualifiers: Rhabdomyolysis type: non-traumatic Qualified Code(s): M62.82 - Rhabdomyolysis Is this a current diagnosis for this admission?: Yes (8) Metabolic acidosis Plan: Start him on a bicarb drip and titrate fluids. Discussed with the treating nurse Day. Following hemodialysis he can still continue on the bicarb drip for at least 24-[address] Rodriguez to watch it over the weekend as I will be off and to stop it if if his CO2 gets to around 22.
[2016-09-11] MEDS: CALCIUM GLUCONATE 1000 MG/10 ML INJ IV SCH (17:34)
[2016-09-11] MEDS ORDERED: BENZTROPINE MESYLATE INJ 2 MG/2 ML AMPULE IM SCH (18:00)
[2016-09-11 20:14] LABS: ANION GAP 9 (5-19); CARBON DIOXIDE 22 mmol/L (22-30); CHLORIDE 114 mmol/L (98-107); GLUCOSE 121 mg/dL (75-110); SODIUM 145.2 mmol/L (137-145)
[2016-09-11 20:33] LABS: BLOOD UREA NITROGEN 68 mg/dL (7-20); POTASSIUM 3.7 mmol/L (3.6-5.0)
[2016-09-11 20:34] LABS: CALCIUM 6.6 mg/dL (8.4-10.2)
[2016-09-12] MEDS: 1/2 NORMAL SALINE 1,000 ML with SODIUM BICARBONATE 50 MEQ IV PRN ×2 (01:10)
[2016-09-12] MEDS: CALCIUM GLUCONATE 1000 MG/10 ML INJ IV SCH ×2 (01:10→09:53)
[2016-09-12 05:25] LABS: ALANINE AMINOTRANSFERASE 440 U/L (21-72); ALBUMIN 2.1 g/dL (3.5-5.0); ALKALINE PHOSPHATASE 42 U/L (38-126); ANION GAP 7 (5-19); BILIRUBIN,DIRECT 0.3 mg/dL (0.0-0.4); BILIRUBIN,TOTAL 0.9 mg/dL (0.2-1.3); BLOOD UREA NITROGEN 75 mg/dL (7-20); CARBON DIOXIDE 26 mmol/L (22-30); CHLORIDE 112 mmol/L (98-107); CREATININE RESULT 4.96 mg/dL (0.52-1.25); GLUCOSE 105 mg/dL (75-110); MAGNESIUM 1.9 mg/dL (1.6-2.3); POTASSIUM 4.1 mmol/L (3.6-5.0); SODIUM 144.7 mmol/L (137-145); TOTAL PROTEIN 3.9 g/dL (6.3-8.2)
[2016-09-12 05:36] LABS: ABSOLUTE LYMPHOCYTES (AUTO) 0.9 10^3/uL (0.5-4.7); ABSOLUTE MONOCYTES (AUTO) 0.5 10^3/uL (0.1-1.4); ABSOLUTE NEUT (AUTO) 4.9 10^3/uL (1.7-8.2); BASOPHILS % (AUTO) 0.2 % (0-2); EOSINOPHILS % (AUTO) 0.4 % (0-6); HEMATOCRIT 32.9 % (37.9-51.0); HEMOGLOBIN 11.4 g/dL (13.5-17.0); HGB HCT DIFFERENCE 1.3; LYMPHOCYTES % (AUTO) 13.8 % (13-45); MEAN CORPUSCULAR HEMOGLOBIN 31.1 pg (27.0-33.4); MEAN CORPUSCULAR HGB CONC 34.7 g/dL (32.0-36.0); MEAN CORPUSCULAR VOLUME 90 fl (80-97); MONOCYTES % (AUTO) 7.8 % (3-13); RED BLOOD COUNT 3.66 10^6/uL (4.35-5.55); RED CELL DISTRIBUTION WIDTH 13.7 % (11.5-14.0); SEGMENTED NEUTROPHILS % (AUTO) 77.8 % (42-78); WHITE BLOOD COUNT 6.3 10^3/uL (4.0-10.5)
[2016-09-12 05:40] LABS: ASPARTATE AMINO TRANSFERASE 1289 U/L (17-59); PHOSPHORUS 4.7 mg/dL (2.5-4.5)
[2016-09-12 05:46] LABS: CALCIUM 6.8 mg/dL (8.4-10.2)
[2016-09-12] MEDS ORDERED: 1/2 NORMAL SALINE 1,000 ML IV PRN ×2 (06:12→16:24)
--- NOTE | 2016-09-12 06:24 | PDOC PROGRESS REPORT ---
Subjective Progress Note for:: 09/12/16 Subjective:: gibberish Physical Exam Vital Signs: Temp Pulse Resp BP Pulse Ox 98.1 F 66 21 H 126/66 H 95 09/11/16 08:00 09/11/16 19:56 09/12/16 06:00 09/12/16 05:55 09/12/16 06:00 Intake & Output 09/10/16 09/11/16 09/12/16 07:59 07:59 07:59 Intake Total 3005 5918 Output Total 275 45 Balance 2730 5873 Weight 158 lb 15.253 oz 172 lb 2.896 oz General appearance: PRESENT: no acute distress Respiratory exam: PRESENT: clear to auscultation michael Cardiovascular exam: PRESENT: irregular rhythm - pac. ABSENT: diastolic murmur , systolic murmur GI/Abdominal exam: ABSENT: mass, organolmegaly, tenderness Extremities exam: ABSENT: pedal edema Neurological exam: PRESENT: other - tremor rigid. ABSENT: oriented to situation Results Laboratory Results: 09/12/16 04:55 09/12/16 04:55 09/11/16 09/11/16 09/11/16 07:17 07:17 19:41 WBC 7.3 RBC 4.02 L Hgb 12.5 L D Hct 37.3 L MCV 93 MCH 31.1 MCHC 33.5 RDW 14.0 Plt Count 102 L Seg Neutrophils % 79.1 H Lymphocytes % 12.5 L Monocytes % 8.2 Eosinophils % 0.0 Basophils % 0.2 Absolute Neutrophils 5.8 Absolute Lymphocytes 0.9 Absolute Monocytes 0.6 Absolute Eosinophils 0.0 Absolute Basophils 0.0 Sodium 152.3 H 145.2 H Potassium 4.7 3.7 D Chloride 125 H 114 H Carbon Dioxide 16 L 22 Anion Gap 11 9 BUN 102 H 68 H D Creatinine 5.38 H 4.10 H Est GFR ( Amer) 13 L 17 L Est GFR (Non-Af Amer) 11 L 14 L Glucose 152 H 121 H Calcium 5.8 L* 6.6 L* Ionized Calcium Dhaval Phosphorus 7.1 H Magnesium 2.6 H Total Bilirubin 0.8 AST 1152 H ALT 378 H Alkaline Phosphatase 39 Total Protein 4.2 L Albumin 2.2 L 09/11/16 09/12/16 09/12/16 22:30 04:55 04:55 WBC 6.3 RBC 3.66 L Hgb 11.4 L Hct 32.9 L MCV 90 MCH 31.1 MCHC 34.7 RDW 13.7 Plt Count 80 L Seg Neutrophils % 77.8 Lymphocytes % 13.8 Monocytes % 7.8 Eosinophils % 0.4 Basophils % 0.2 Absolute Neutrophils 4.9 Absolute Lymphocytes 0.9 Absolute Monocytes 0.5 Absolute Eosinophils 0.0 Absolute Basophils 0.0 Sodium Potassium Chloride Carbon Dioxide Anion Gap BUN Creatinine Est GFR ( Amer) Est GFR (Non-Af Amer) Glucose Calcium Ionized Calcium Dhaval 1.00 L 1.02 L Phosphorus Magnesium Total Bilirubin AST ALT Alkaline Phosphatase Total Protein Albumin 09/12/16 04:55 WBC RBC Hgb Hct MCV MCH MCHC RDW Plt Count Seg Neutrophils % Lymphocytes % Monocytes % Eosinophils % Basophils % Absolute Neutrophils Absolute Lymphocytes Absolute Monocytes Absolute Eosinophils Absolute Basophils Sodium 144.7 Potassium 4.1 Chloride 112 H Carbon Dioxide 26 Anion Gap 7 BUN 75 H Creatinine 4.96 H Est GFR ( Amer) 14 L Est GFR (Non-Af Amer) 12 L Glucose 105 Calcium 6.8 L* Ionized Calcium Dhaval Phosphorus 4.7 H D Magnesium 1.9 Total Bilirubin 0.9 AST 1289 H ALT 440 H Alkaline Phosphatase 42 Total Protein 3.9 L Albumin 2.1 L 09/10/16 09/11/16 09/11/16 19:15 01:16 07:17 Creatine Kinase 97023 H 69820 H 12375 H Impressions: Chest X-Ray 09/10/16 12:29 IMPRESSION: NO ACUTE RADIOGRAPHIC FINDING IN THE CHEST. Forearm X-Ray 09/10/16 12:30 IMPRESSION: NEGATIVE STUDY OF THE RIGHT FOREARM. NO RADIOGRAPHIC EVIDENCE OF ACUTE INJURY. Head CT 09/10/16 12:30 IMPRESSION: CHRONIC CHANGES OF ATROPHY AND MICROVASCULAR ISCHEMIA. NO ACUTE PROCESS. Pelvis X-Ray 09/10/16 12:30 IMPRESSION: NEGATIVE STUDY OF THE PELVIS. Assessment & Plan - Diagnosis (1) GORGE (acute kidney injury) Is this a current diagnosis for this admission?: YesPlan: anuric. Decreased half normal to 75/h. Cr 6 4 5. Dialysis in 2d. Prognosis guarded. Spoke with son in [place]. (2) Rhabdomyolysis Qualifiers: Rhabdomyolysis type: non-traumatic Qualified Code(s): M62.82 - Rhabdomyolysis Is this a current diagnosis for this admission?: YesPlan: still 68k. [id number]. Stopped. (3) Bacteremia Is this a current diagnosis for this admission?: YesPlan: 2of2 cultures gram+. On ceftri (4) Thrombocytopenia Is this a current diagnosis for this admission?: YesPlan: stopped lovenox (5) Lewy body Parkinson disease Is this a current diagnosis for this admission?: Yes - Inpatient Certification Medical Necessity: Significant Comorbidiites Make Outpatient Treatment Too Risky , Need For IV Fluids, Need For Continuous Telemetry Monitoring, Need for IV Antibiotics, Risk of Complication if Not Cared For in Hospital, Risk of Diagnosis Which Will Require Inpatient Eval/Care/Monitoring
[2016-09-12] MEDS: FAMOTIDINE INJ/PF 20 MG/2 ML SDV IV SCH ×2 (09:54→21:00)
[2016-09-12] MEDS: CEFTRIAXONE 1 GM/D5W RTU 1 GM/50 ML RTUPB IV SCH (09:54)
[2016-09-12 17:28] LABS: ANION GAP 9 (5-19); BLOOD UREA NITROGEN 91 mg/dL (7-20); CARBON DIOXIDE 24 mmol/L (22-30); CHLORIDE 111 mmol/L (98-107); CREATININE RESULT 5.71 mg/dL (0.52-1.25); GLUCOSE 118 mg/dL (75-110); POTASSIUM 4.2 mmol/L (3.6-5.0); SODIUM 143.8 mmol/L (137-145)
[2016-09-12 17:40] LABS: CALCIUM 7.3 mg/dL (8.4-10.2)
--- NOTE | 2016-09-12 19:12 | RADIOLOGY REPORT (SQ) ---
EXAM DESCRIPTION: [employer] COMPLETED DATE/TIME: 09/12/2016 7:02 pm REASON FOR STUDY: Acute kidney injury COMPARISON: None. TECHNIQUE: Dynamic and static grayscale images acquired of the kidneys and bladder and recorded on P ACS. Additional selected color Doppler and spectral images recorded. LIMITATIONS: None. FINDINGS: RIGHT KIDNEY: Normal size. Normal echogenicity. No solid or suspicious masses. No h ydronephrosis. No calcifications. LEFT KIDNEY: Normal size. An 8.3 x 9.3 x 7.8 cm simple cyst emanates from the superior pole. Norm al echogenicity. No solid or suspicious masses. No hydronephrosis. No calcifications. BLADDER: Decompressed by a Naranjo bladder catheter. OTHER FINDINGS: No other significant finding. IMPRESSION: No evidence of acute or chronic renal injury. Incidental note is made of an 8.3 x 9.3 x 7.8 cm simple cyst emanating from the superior pole of the left kidney. The bladder is not evaluate d as it is decompressed by a Naranjo catheter. TECHNICAL DOCUMENTATION: JOB ID: [id number] [employer]- All Rights Reserved
[2016-09-12] MEDS: DEXTROSE 5%-NORMAL SALINE 1,000 ML IV PRN (20:55)
[2016-09-13 00:39] LABS: ANION GAP 10 (5-19); BLOOD UREA NITROGEN 97 mg/dL (7-20); CALCIUM 7.2 mg/dL (8.4-10.2); CARBON DIOXIDE 22 mmol/L (22-30); CHLORIDE 112 mmol/L (98-107); CREATININE RESULT 6.04 mg/dL (0.52-1.25); GLUCOSE 117 mg/dL (75-110); POTASSIUM 4.1 mmol/L (3.6-5.0); SODIUM 143.7 mmol/L (137-145)
--- NOTE | 2016-09-13 05:41 | PDOC PROGRESS REPORT ---
Subjective Progress Note for:: 09/13/16 Subjective:: no pain Physical Exam Vital Signs: Temp Pulse Resp BP Pulse Ox 99.9 F 68 18 121/83 99 09/12/16 20:00 09/12/16 20:00 09/13/16 02:00 09/12/16 23:54 09/13/16 02:00 Intake & Output 09/11/16 09/12/16 09/13/16 07:59 07:59 07:59 Intake Total 3005 5918 1470 Output Total 275 45 25 Balance 2730 5873 1445 Weight 158 lb 15.253 oz 172 lb 2.896 oz General appearance: PRESENT: no acute distress Respiratory exam: PRESENT: clear to auscultation michael Cardiovascular exam: ABSENT: clicks, irregular rhythm, systolic murmur GI/Abdominal exam: ABSENT: mass, organolmegaly, tenderness Extremities exam: ABSENT: pedal edema Neurological exam: PRESENT: other - tremor rigidity. ABSENT: oriented to situation Psychiatric exam: PRESENT: appropriate affect Skin exam: PRESENT: other - bleeding from needle sites Results Laboratory Results: 09/12/16 04:55 09/13/16 00:09 Abnormal - 24 hr 09/12/16 09/12/16 09/12/16 04:55 04:55 08:52 RBC 3.66 L Hgb 11.4 L Hct 32.9 L Plt Count 80 L Chloride 112 H BUN 75 H Creatinine 4.96 H Est GFR ( Amer) 14 L Est GFR (Non-Af Amer) 12 L Glucose POC Glucose 113 H Calcium 6.8 L* Ionized Calcium Dhaval Phosphorus 4.7 H D AST 1289 H ALT 440 H Total Protein 3.9 L Albumin 2.1 L 09/12/16 09/12/16 09/12/16 12:18 17:04 17:04 RBC Hgb Hct Plt Count Chloride 111 H BUN 91 H Creatinine 5.71 H Est GFR ( Amer) 12 L Est GFR (Non-Af Amer) 10 L Glucose 118 H POC Glucose 126 H Calcium 7.3 L Ionized Calcium Dhaval 1.00 L Phosphorus AST ALT Total Protein Albumin 09/13/16 09/13/16 00:09 00:09 RBC Hgb Hct Plt Count Chloride 112 H BUN 97 H Creatinine 6.04 H Est GFR ( Amer) 11 L Est GFR (Non-Af Amer) 9 L Glucose 117 H POC Glucose Calcium 7.2 L Ionized Calcium Dhaval 1.04 L Phosphorus AST ALT Total Protein Albumin Impressions: Chest X-Ray 09/10/16 12:29 IMPRESSION: NO ACUTE RADIOGRAPHIC FINDING IN THE CHEST. Forearm X-Ray 09/10/16 12:30 IMPRESSION: NEGATIVE STUDY OF THE RIGHT FOREARM. NO RADIOGRAPHIC EVIDENCE OF ACUTE INJURY. Head CT 09/10/16 12:30 IMPRESSION: CHRONIC CHANGES OF ATROPHY AND MICROVASCULAR ISCHEMIA. NO ACUTE PROCESS. Pelvis X-Ray 09/10/16 12:30 IMPRESSION: NEGATIVE STUDY OF THE PELVIS. Renal Ultrasound 09/12/16 00:00 IMPRESSION: No evidence of acute or chronic renal injury. Incidental note is made of an 8.3 x 9.3 x 7.8 cm simple cyst emanating from the superior pole of the left kidney. The bladder is not evaluated as it is decompressed by a Naranjo catheter. Assessment & Plan - Diagnosis (1) GORGE (acute kidney injury) Is this a current diagnosis for this admission?: YesPlan: output 5/h instead of zero. Fluids at 80/h. Taking po. Decrease to 30/h. Dialysis tomorrow. (2) Rhabdomyolysis Qualifiers: Rhabdomyolysis type: non-traumatic Qualified Code(s): M62.82 - Rhabdomyolysis Is this a current diagnosis for this admission?: YesPlan: ivf (3) Bacteremia Is this a current diagnosis for this admission?: YesPlan: follow sensitivities (4) Thrombocytopenia Is this a current diagnosis for this admission?: Yes (5) DIC (disseminated intravascular coagulation) Is this a current diagnosis for this admission?: YesPlan: platelets falling. Check inr, Ddimer, fibrinogen. (6) Abnormal LFTs (liver function tests) Is this a current diagnosis for this admission?: YesPlan: check hepatitis panel (7) Lewy body Parkinson disease Is this a current diagnosis for this admission?: Yes - Inpatient Certification Medical Necessity: Significant Comorbidiites Make Outpatient Treatment Too Risky , Need Close Monitoring Due to Risk of Patient Decompensation, Need For IV Fluids, Need for IV Antibiotics, Risk of Complication if Not Cared For in Hospital, Risk of Diagnosis Which Will Require Inpatient Eval/Care/Monitoring
[2016-09-13 05:54] LABS: ABSOLUTE EOSINOPHILS # (AUTO) 0.2 10^3/uL (0.0-0.6); ABSOLUTE MONOCYTES (AUTO) 0.6 10^3/uL (0.1-1.4); ABSOLUTE NEUT (AUTO) 6.2 10^3/uL (1.7-8.2); BASOPHILS % (AUTO) 0.4 % (0-2); EOSINOPHILS % (AUTO) 1.9 % (0-6); HEMATOCRIT 31.4 % (37.9-51.0); HEMOGLOBIN 10.9 g/dL (13.5-17.0); HGB HCT DIFFERENCE 1.3; LYMPHOCYTES % (AUTO) 12.3 % (13-45); MEAN CORPUSCULAR HEMOGLOBIN 31.3 pg (27.0-33.4); MEAN CORPUSCULAR HGB CONC 34.8 g/dL (32.0-36.0); MEAN CORPUSCULAR VOLUME 90 fl (80-97); MONOCYTES % (AUTO) 7.2 % (3-13); RED CELL DISTRIBUTION WIDTH 13.6 % (11.5-14.0); SEGMENTED NEUTROPHILS % (AUTO) 78.2 % (42-78); WHITE BLOOD COUNT 7.9 10^3/uL (4.0-10.5)
[2016-09-13 05:58] LABS: FIBRINOGEN 411 mg/dL (209-497); PROTHROMBIN TIME 14.5 SEC (11.4-15.4)
[2016-09-13 06:01] LABS: D-DIMER 3.26 ug/mL (0.00-0.50)
[2016-09-13 06:03] LABS: ALANINE AMINOTRANSFERASE 467 U/L (21-72); ALKALINE PHOSPHATASE 47 U/L (38-126); ANION GAP 10 (5-19); BILIRUBIN,DIRECT 0.5 mg/dL (0.0-0.4); BLOOD UREA NITROGEN 103 mg/dL (7-20); CALCIUM 7.2 mg/dL (8.4-10.2); CARBON DIOXIDE 22 mmol/L (22-30); CHLORIDE 112 mmol/L (98-107); CREATININE RESULT 6.55 mg/dL (0.52-1.25); GLUCOSE 115 mg/dL (75-110); MAGNESIUM 2.2 mg/dL (1.6-2.3); POTASSIUM 4.1 mmol/L (3.6-5.0); SODIUM 143.5 mmol/L (137-145); TOTAL PROTEIN 3.9 g/dL (6.3-8.2)
[2016-09-13 06:14] LABS: ASPARTATE AMINO TRANSFERASE 1123 U/L (17-59)
[2016-09-13] MEDS: CEFTRIAXONE 1 GM/D5W RTU 1 GM/50 ML RTUPB IV SCH (10:14)
[2016-09-13] MEDS: FAMOTIDINE INJ/PF 20 MG/2 ML SDV IV SCH ×2 (10:16→21:27)
[2016-09-13 15:55] LABS: ANION GAP 11 (5-19); BLOOD UREA NITROGEN 108 mg/dL (7-20); CALCIUM 7.4 mg/dL (8.4-10.2); CARBON DIOXIDE 23 mmol/L (22-30); CHLORIDE 107 mmol/L (98-107); CREATININE RESULT 6.94 mg/dL (0.52-1.25); GLUCOSE 110 mg/dL (75-110); POTASSIUM 4.2 mmol/L (3.6-5.0); SODIUM 140.9 mmol/L (137-145)
[2016-09-13 22:33] LABS: ANION GAP 9 (5-19); BLOOD UREA NITROGEN 117 mg/dL (7-20); CALCIUM 7.5 mg/dL (8.4-10.2); CARBON DIOXIDE 22 mmol/L (22-30); CHLORIDE 109 mmol/L (98-107); CREATININE RESULT 7.37 mg/dL (0.52-1.25); GLUCOSE 112 mg/dL (75-110); POTASSIUM 4.1 mmol/L (3.6-5.0); SODIUM 139.7 mmol/L (137-145)
[2016-09-14 05:52] LABS: ANION GAP 10 (5-19); BLOOD UREA NITROGEN 120 mg/dL (7-20); CALCIUM 7.6 mg/dL (8.4-10.2); CARBON DIOXIDE 21 mmol/L (22-30); CHLORIDE 109 mmol/L (98-107); CREATININE RESULT 7.81 mg/dL (0.52-1.25); GLUCOSE 109 mg/dL (75-110); POTASSIUM 4.3 mmol/L (3.6-5.0); SODIUM 139.6 mmol/L (137-145)
[2016-09-14] MEDS ORDERED: CALCIUM GLUCONATE 1,000 MG in DEXTROSE 5%-WATER 50 ML IV SCH (07:15)
--- NOTE | 2016-09-14 08:17 | PDOC PROGRESS REPORT ---
Subjective Progress Note for:: 09/14/16 Subjective:: no pain Physical Exam Vital Signs: Temp Pulse Resp BP Pulse Ox 99.1 F 76 23 H 137/56 H 95 09/14/16 07:51 09/14/16 07:51 09/14/16 07:51 09/14/16 07:51 09/14/16 07:51 Intake & Output 09/13/16 09/14/16 09/15/16 07:59 07:59 07:59 Intake Total 1960 1634 Output Total 50 73 Balance 1910 1561 Weight 176 lb 5.917 oz 180 lb 15.992 oz General appearance: PRESENT: no acute distress Respiratory exam: PRESENT: clear to auscultation michael Cardiovascular exam: ABSENT: diastolic murmur, irregular rhythm, systolic murmur GI/Abdominal exam: ABSENT: mass, organolmegaly, tenderness Neurological exam: ABSENT: oriented to situation Psychiatric exam: PRESENT: appropriate affect Results Laboratory Results: 09/13/16 05:35 09/14/16 05:10 09/13/16 09/13/16 09/14/16 22:10 22:10 05:10 Sodium 139.7 139.6 Potassium 4.1 4.3 Chloride 109 H 109 H Carbon Dioxide 22 21 L Anion Gap 9 10 BUN 117 H 120 H Creatinine 7.37 H 7.81 H Est GFR ( Amer) 9 L 8 L Est GFR (Non-Af Amer) 7 L 7 L Glucose 112 H 109 Calcium 7.5 L 7.6 L Ionized Calcium Dhaval 1.07 L 09/14/16 05:10 Sodium Potassium Chloride Carbon Dioxide Anion Gap BUN Creatinine Est GFR ( Amer) Est GFR (Non-Af Amer) Glucose Calcium Ionized Calcium Dhaval 1.05 L 09/10/16 09/11/16 09/11/16 19:15 01:16 07:17 Creatine Kinase 66177 H 83488 H 92604 H 09/14/16 05:10 Creatine Kinase 07137 H Impressions: Chest X-Ray 09/10/16 12:29 IMPRESSION: NO ACUTE RADIOGRAPHIC FINDING IN THE CHEST. Forearm X-Ray 09/10/16 12:30 IMPRESSION: NEGATIVE STUDY OF THE RIGHT FOREARM. NO RADIOGRAPHIC EVIDENCE OF ACUTE INJURY. Head CT 09/10/16 12:30 IMPRESSION: CHRONIC CHANGES OF ATROPHY AND MICROVASCULAR ISCHEMIA. NO ACUTE PROCESS. Pelvis X-Ray 09/10/16 12:30 IMPRESSION: NEGATIVE STUDY OF THE PELVIS. Renal Ultrasound 09/12/16 00:00 IMPRESSION: No evidence of acute or chronic renal injury. Incidental note is made of an 8.3 x 9.3 x 7.8 cm simple cyst emanating from the superior pole of the left kidney. The bladder is not evaluated as it is decompressed by a Naranjo catheter. Assessment & Plan - Diagnosis (1) GORGE (acute kidney injury) Is this a current diagnosis for this admission?: YesPlan: worse. Up ?34# in 3d. Needs dialysis (2) Rhabdomyolysis Qualifiers: Rhabdomyolysis type: non-traumatic Qualified Code(s): M62.82 - Rhabdomyolysis Is this a current diagnosis for this admission?: YesPlan: ck improving slowly (3) Bacteremia Is this a current diagnosis for this admission?: YesPlan: 2of2 staph hominis sensitive to keflex. Continue ceftri (4) Thrombocytopenia Is this a current diagnosis for this admission?: Yes (5) DIC (disseminated intravascular coagulation) Is this a current diagnosis for this admission?: YesPlan: platelets slightly better. INR fibrinogen normal. D dimer + (6) Abnormal LFTs (liver function tests) Is this a current diagnosis for this admission?: YesPlan: serology pending. May be from bacteremia. (7) Lewy body Parkinson disease Is this a current diagnosis for this admission?: Yes - Inpatient Certification Medical Necessity: Significant Comorbidiites Make Outpatient Treatment Too Risky , Need Close Monitoring Due to Risk of Patient Decompensation, Need For IV Fluids, Need For Continuous Telemetry Monitoring, Need for IV Antibiotics, Risk of Complication if Not Cared For in Hospital, Risk of Diagnosis Which Will Require Inpatient Eval/Care/Monitoring
[2016-09-14] MEDS: CALCIUM GLUCONATE 1000 MG/10 ML INJ IV SCH ×3 (08:41→23:14)
[2016-09-14] MEDS ORDERED: HEPARIN SOD (PORCINE) 1,000 UNIT/ML 10 ML VIAL INJ PRN ×2 (11:10→11:11)
[2016-09-14] MEDS: NORMAL SALINE 1000 ML 1,000 ML IV PRN (13:43)
[2016-09-14] MEDS: CEFTRIAXONE 1 GM/D5W RTU 1 GM/50 ML RTUPB IV SCH (13:44)
[2016-09-14] MEDS: FAMOTIDINE INJ/PF 20 MG/2 ML SDV IV SCH ×2 (13:45→21:16)
--- NOTE | 2016-09-14 14:51 | PDOC PROGRESS REPORT ---
Subjective Progress Note for:: 09/14/16 Subjective:: Patient seen in the hospital today. He still remains in the ICU. He is not intubated or sedated. However he is got a slurry speech. He denies any specific complaints of chest pain shortness of breath. Labs were reviewed. This shows worsening renal functions. His urine output is on the lower side. Physical Exam Vital Signs: Temp Pulse Resp BP Pulse Ox 98.4 F 73 17 145/104 H 100 09/14/16 12:00 09/14/16 12:00 09/14/16 12:00 09/14/16 12:00 09/14/16 12:00 Intake & Output 09/13/16 09/14/16 09/15/16 06:59 06:59 06:59 Intake Total 1960 1634 Output Total 50 53 65 Balance 1910 1581 -65 Weight 80 kg 82.1 kg General appearance: PRESENT: no acute distress Respiratory exam: PRESENT: clear to auscultation michael. ABSENT: crackles, rhonchi Cardiovascular exam: PRESENT: +S1, +S2 GI/Abdominal exam: PRESENT: normal bowel sounds, soft. ABSENT: organomegaly, tenderness Extremities exam: ABSENT: pedal edema Neurological exam: PRESENT: awake, oriented to person Skin exam: ABSENT: erythema, mottled, rash Results Laboratory Results: 09/13/16 05:35 09/13/16 09/13/16 09/13/16 15:31 22:10 22:10 Sodium 140.9 139.7 Potassium 4.2 4.1 Chloride 107 109 H Carbon Dioxide 23 22 Anion Gap 11 9 BUN 108 H 117 H Creatinine 6.94 H 7.37 H Est GFR ( Amer) 9 L 9 L Est GFR (Non-Af Amer) 8 L 7 L Glucose 110 112 H Calcium 7.4 L 7.5 L Ionized Calcium Dhaval 1.07 L 09/14/16 09/14/16 09/14/16 05:10 05:10 14:40 Sodium 139.6 Potassium 4.3 Chloride 109 H Carbon Dioxide 21 L Anion Gap 10 BUN 120 H Creatinine 7.81 H Est GFR ( Amer) 8 L Est GFR (Non-Af Amer) 7 L Glucose 109 Calcium 7.6 L Ionized Calcium Dhaval 1.05 L 1.07 L 09/10/16 09/11/16 09/11/16 19:15 01:16 07:17 Creatine Kinase 84936 H 17889 H 12911 H 09/14/16 05:10 Creatine Kinase 21028 H Impressions: Chest X-Ray 09/10/16 12:29 IMPRESSION: NO ACUTE RADIOGRAPHIC FINDING IN THE CHEST. Forearm X-Ray 09/10/16 12:30 IMPRESSION: NEGATIVE STUDY OF THE RIGHT FOREARM. NO RADIOGRAPHIC EVIDENCE OF ACUTE INJURY. Head CT 09/10/16 12:30 IMPRESSION: CHRONIC CHANGES OF ATROPHY AND MICROVASCULAR ISCHEMIA. NO ACUTE PROCESS. Pelvis X-Ray 09/10/16 12:30 IMPRESSION: NEGATIVE STUDY OF THE PELVIS. Renal Ultrasound 09/12/16 00:00 IMPRESSION: No evidence of acute or chronic renal injury. Incidental note is made of an 8.3 x 9.3 x 7.8 cm simple cyst emanating from the superior pole of the left kidney. The bladder is not evaluated as it is decompressed by a Naranjo catheter. Assessment & Plan - Diagnosis (1) Hypocalcemia Plan: No obvious signs of tetany. Improved. Can cut back on the IV calcium and see if he can take p.o. instead. (3) GORGE (acute kidney injury) Is this a current diagnosis for this admission?: YesPlan: Secondary to acute rhabdomyolysis. Now oligo anuric.Showing features of uremia. He needs to be dialyzed today especially given his rising renal numbers. He was seen on dialysis today as well. Dialysis is being supervised to ensure a safe and smooth procedure.Orders were discussed with the treating nurse Raegan. (4) Encephalopathy Plan: Secondary to acute rhabdomyolysis and uremia. Comparatively better than when I saw him the last week. (5) Lewy body Parkinson disease Is this a current diagnosis for this admission?: Yes (6) Rhabdomyolysis Qualifiers: Rhabdomyolysis type: non-traumatic Qualified Code(s): M62.82 - Rhabdomyolysis Is this a current diagnosis for this admission?: YesPlan: Secondary to prolonged immobility on the floor after an apparent fall. Severe CPK has come down but is still highas seen by the high CPK numbers.Plan to continue on hemodialysis until we see renal recovery. (7) Parkinsons disease Plan: Status quo (8) Metabolic acidosis Plan: Markedly improved. Monitor
[2016-09-14 15:10] LABS: ANION GAP 6 (5-19); CALCIUM 7.7 mg/dL (8.4-10.2); CARBON DIOXIDE 30 mmol/L (22-30); CHLORIDE 104 mmol/L (98-107); CREATININE RESULT 4.93 mg/dL (0.52-1.25); GLUCOSE 98 mg/dL (75-110); POTASSIUM 4.2 mmol/L (3.6-5.0); SODIUM 139.8 mmol/L (137-145)
[2016-09-14 15:21] LABS: BLOOD UREA NITROGEN 70 mg/dL (7-20)
[2016-09-14 22:49] LABS: ANION GAP 8 (5-19); BLOOD UREA NITROGEN 74 mg/dL (7-20); CALCIUM 7.6 mg/dL (8.4-10.2); CARBON DIOXIDE 27 mmol/L (22-30); CHLORIDE 104 mmol/L (98-107); CREATININE RESULT 5.54 mg/dL (0.52-1.25); GLUCOSE 98 mg/dL (75-110); POTASSIUM 4.4 mmol/L (3.6-5.0); SODIUM 139.1 mmol/L (137-145)
[2016-09-15] MEDS: NORMAL SALINE 1000 ML 1,000 ML IV PRN (03:58)
--- NOTE | 2016-09-15 06:55 | PDOC PROGRESS REPORT ---
Subjective Progress Note for:: 09/15/16 Subjective:: does not answer questions Physical Exam Vital Signs: Temp Pulse Resp BP Pulse Ox 98.6 F 80 20 154/77 H 83 L 09/15/16 04:30 09/15/16 04:30 09/15/16 04:30 09/15/16 04:30 09/15/16 04:30 Intake & Output 09/13/16 09/14/16 09/15/16 07:59 07:59 07:59 Intake Total 1960 1634 890 Output Total 50 73 65 Balance 1910 1561 825 Weight 176 lb 5.917 oz 180 lb 15.992 oz General appearance: PRESENT: no acute distress Respiratory exam: PRESENT: clear to auscultation michael Cardiovascular exam: ABSENT: diastolic murmur, irregular rhythm, systolic murmur GI/Abdominal exam: ABSENT: mass, organolmegaly, tenderness Extremities exam: ABSENT: pedal edema Neurological exam: ABSENT: oriented to situation Skin exam: PRESENT: other - 3 bullae L hip Results Laboratory Results: 09/13/16 05:35 09/14/16 22:10 09/14/16 09/14/16 09/14/16 14:40 14:40 22:10 Sodium 139.8 139.1 Potassium 4.2 4.4 Chloride 104 104 Carbon Dioxide 30 27 Anion Gap 6 8 BUN 70 H D 74 H Creatinine 4.93 H 5.54 H Est GFR ( Amer) 14 L 12 L Est GFR (Non-Af Amer) 12 L 10 L Glucose 98 98 Calcium 7.7 L 7.6 L Ionized Calcium Dhaval 1.07 L 09/14/16 22:10 Sodium Potassium Chloride Carbon Dioxide Anion Gap BUN Creatinine Est GFR ( Amer) Est GFR (Non-Af Amer) Glucose Calcium Ionized Calcium Dhaval 1.08 L 09/10/16 09/11/16 09/11/16 19:15 01:16 07:17 Creatine Kinase 41740 H 15806 H 30898 H 09/14/16 09/15/16 09/15/16 05:10 04:23 04:25 Creatine Kinase 74650 H 7346 H Cancelled Impressions: Chest X-Ray 09/10/16 12:29 IMPRESSION: NO ACUTE RADIOGRAPHIC FINDING IN THE CHEST. Forearm X-Ray 09/10/16 12:30 IMPRESSION: NEGATIVE STUDY OF THE RIGHT FOREARM. NO RADIOGRAPHIC EVIDENCE OF ACUTE INJURY. Head CT 09/10/16 12:30 IMPRESSION: CHRONIC CHANGES OF ATROPHY AND MICROVASCULAR ISCHEMIA. NO ACUTE PROCESS. Pelvis X-Ray 09/10/16 12:30 IMPRESSION: NEGATIVE STUDY OF THE PELVIS. Renal Ultrasound 09/12/16 00:00 IMPRESSION: No evidence of acute or chronic renal injury. Incidental note is made of an 8.3 x 9.3 x 7.8 cm simple cyst emanating from the superior pole of the left kidney. The bladder is not evaluated as it is decompressed by a Naranjo catheter. Assessment & Plan - Diagnosis (1) GORGE (acute kidney injury) Is this a current diagnosis for this admission?: YesPlan: dialyzed yesterday. May need tomorrow (2) Rhabdomyolysis Qualifiers: Rhabdomyolysis type: non-traumatic Qualified Code(s): M62.82 - Rhabdomyolysis Is this a current diagnosis for this admission?: YesPlan: ck 7k. Continue NS100 (3) Bacteremia Is this a current diagnosis for this admission?: YesPlan: afebrile. Continue ceftri (4) Thrombocytopenia Is this a current diagnosis for this admission?: YesPlan: no obvious oozing (5) DIC (disseminated intravascular coagulation) Is this a current diagnosis for this admission?: Yes (6) Abnormal LFTs (liver function tests) Is this a current diagnosis for this admission?: Yes (7) Lewy body Parkinson disease Is this a current diagnosis for this admission?: Yes
[2016-09-15] MEDS: CEFTRIAXONE 1 GM/D5W RTU 1 GM/50 ML RTUPB IV SCH (10:29)
[2016-09-15] MEDS: FAMOTIDINE INJ/PF 20 MG/2 ML SDV IV SCH ×2 (10:30→21:39)
[2016-09-15 11:56] LABS: ALANINE AMINOTRANSFERASE 351 U/L (21-72); ALBUMIN 1.9 g/dL (3.5-5.0); ALKALINE PHOSPHATASE 48 U/L (38-126); ANION GAP 7 (5-19); ASPARTATE AMINO TRANSFERASE 520 U/L (17-59); BILIRUBIN,DIRECT 0.4 mg/dL (0.0-0.4); BLOOD UREA NITROGEN 81 mg/dL (7-20); CALCIUM 7.7 mg/dL (8.4-10.2); CARBON DIOXIDE 26 mmol/L (22-30); CHLORIDE 106 mmol/L (98-107); CREATININE RESULT 5.86 mg/dL (0.52-1.25); GLUCOSE 96 mg/dL (75-110); POTASSIUM 4.5 mmol/L (3.6-5.0); SODIUM 139.2 mmol/L (137-145); TOTAL PROTEIN 3.7 g/dL (6.3-8.2)
--- NOTE | 2016-09-15 19:31 | PDOC PROGRESS REPORT ---
Subjective Progress Note for:: 09/15/16 Subjective:: Patient was seen in his bed. At the time he said that he felt better since starting dialysis. He said that he could think more clearly and breath better. He had no major concerns other than whether or not he would be doing dialysis again tomorrow. Physical Exam Vital Signs: Temp Pulse Resp BP Pulse Ox 98.2 F 66 18 152/68 H 97 09/15/16 16:03 09/15/16 16:03 09/15/16 16:03 09/15/16 16:03 09/15/16 16:03 Intake & Output 09/14/16 09/15/16 09/16/16 06:59 06:59 06:59 Intake Total 1634 2090 150 Output Total 53 85 75 Balance 1581 2005 75 Weight 82.1 kg 82.3 kg General appearance: PRESENT: no acute distress, thin Head exam: PRESENT: atraumatic Mouth exam: PRESENT: moist, neck supple Neck exam: PRESENT: JVD. ABSENT: tracheal deviation Respiratory exam: PRESENT: clear to auscultation michael. ABSENT: accessory muscle use, chest wall tenderness, crackles, rales, rhonchi, stridor, tachypnea, wheezes Cardiovascular exam: PRESENT: diastolic murmur, RRR, +S1, +S2 GI/Abdominal exam: PRESENT: normal bowel sounds, soft. ABSENT: ascites, distended, firm, organomegaly, tenderness Extremities exam: PRESENT: +1 edema. ABSENT: calf tenderness, joint swelling Musculoskeletal exam: ABSENT: ambulatory, full ROM Neurological exam: PRESENT: alert, oriented to person, oriented to place, oriented to time, other - no asterixis, but did have parkinsons daniel Skin exam: PRESENT: normal color. ABSENT: cyanosis, erythema Results Laboratory Results: 09/13/16 05:35 09/15/16 04:23 09/14/16 09/14/16 09/15/16 22:10 22:10 04:23 Sodium 139.1 139.2 Potassium 4.4 4.5 Chloride 104 106 Carbon Dioxide 27 26 Anion Gap 8 7 BUN 74 H 81 H Creatinine 5.54 H 5.86 H Est GFR ( Amer) 12 L 12 L Est GFR (Non-Af Amer) 10 L 10 L Glucose 98 96 Calcium 7.6 L 7.7 L Ionized Calcium Dhaval 1.08 L Total Bilirubin 1.0 AST 520 H ALT 351 H Alkaline Phosphatase 48 Total Protein 3.7 L Albumin 1.9 L 09/10/16 09/11/16 09/11/16 19:15 01:16 07:17 Creatine Kinase 01313 H 79589 H 73655 H 09/14/16 09/15/16 09/15/16 05:10 04:23 04:25 Creatine Kinase 22000 H 7346 H Cancelled Impressions: Chest X-Ray 09/10/16 12:29 IMPRESSION: NO ACUTE RADIOGRAPHIC FINDING IN THE CHEST. Forearm X-Ray 09/10/16 12:30 IMPRESSION: NEGATIVE STUDY OF THE RIGHT FOREARM. NO RADIOGRAPHIC EVIDENCE OF ACUTE INJURY. Head CT 09/10/16 12:30 IMPRESSION: CHRONIC CHANGES OF ATROPHY AND MICROVASCULAR ISCHEMIA. NO ACUTE PROCESS. Pelvis X-Ray 09/10/16 12:30 IMPRESSION: NEGATIVE STUDY OF THE PELVIS. Renal Ultrasound 09/12/16 00:00 IMPRESSION: No evidence of acute or chronic renal injury. Incidental note is made of an 8.3 x 9.3 x 7.8 cm simple cyst emanating from the superior pole of the left kidney. The bladder is not evaluated as it is decompressed by a Naranjo catheter. Assessment & Plan - Diagnosis (1) GORGE (acute kidney injury) Is this a current diagnosis for this admission?: YesPlan: Will continue dialysis treatments tomorrow. Continue to remain oliguric (2) Abnormal LFTs (liver function tests) Is this a current diagnosis for this admission?: YesPlan: trending down (3) Bacteremia Is this a current diagnosis for this admission?: YesPlan: continue ceftriaxone at current dosage (4) Metabolic acidosis Plan: Will see if it does up after next dialysis treatment. (5) Rhabdomyolysis Qualifiers: Rhabdomyolysis type: non-traumatic Qualified Code(s): M62.82 - Rhabdomyolysis Is this a current diagnosis for this admission?: YesPlan: looks to be resolving, will continue dialysis to keep giving kidney's time to recover. (6) Hypertension Plan: if still high after dialysis will look into start bp meds.
[2016-09-16] MEDS: NORMAL SALINE 1000 ML 1,000 ML IV PRN ×2 (04:07→20:17)
[2016-09-16 07:28] LABS: ABSOLUTE EOSINOPHILS # (AUTO) 0.4 10^3/uL (0.0-0.6); ABSOLUTE LYMPHOCYTES (AUTO) 0.8 10^3/uL (0.5-4.7); ABSOLUTE MONOCYTES (AUTO) 1.1 10^3/uL (0.1-1.4); ABSOLUTE NEUT (AUTO) 7.4 10^3/uL (1.7-8.2); BASOPHILS % (AUTO) 0.3 % (0-2); EOSINOPHILS % (AUTO) 4.1 % (0-6); HEMATOCRIT 31.7 % (37.9-51.0); HEMOGLOBIN 11.3 g/dL (13.5-17.0); HGB HCT DIFFERENCE 2.2; LYMPHOCYTES % (AUTO) 8.1 % (13-45); MEAN CORPUSCULAR HEMOGLOBIN 31.4 pg (27.0-33.4); MEAN CORPUSCULAR HGB CONC 35.5 g/dL (32.0-36.0); MEAN CORPUSCULAR VOLUME 89 fl (80-97); MONOCYTES % (AUTO) 11.4 % (3-13); RED BLOOD COUNT 3.58 10^6/uL (4.35-5.55); RED CELL DISTRIBUTION WIDTH 13.3 % (11.5-14.0); SEGMENTED NEUTROPHILS % (AUTO) 76.1 % (42-78); WHITE BLOOD COUNT 9.7 10^3/uL (4.0-10.5)
--- NOTE | 2016-09-16 07:52 | PDOC PROGRESS REPORT ---
Subjective Progress Note for:: 09/16/16 Subjective:: OK Physical Exam Vital Signs: Temp Pulse Resp BP Pulse Ox 98.7 F 63 20 109/82 97 09/16/16 03:33 09/16/16 03:33 09/16/16 03:33 09/16/16 03:33 09/16/16 03:33 Intake & Output 09/14/16 09/15/16 09/16/16 07:59 07:59 07:59 Intake Total 1634 2090 2180 Output Total 73 65 175 Balance 1561 2024 2004 Weight 180 lb 15.992 oz 181 lb 7.047 oz 181 lb 7.047 oz General appearance: PRESENT: no acute distress Respiratory exam: PRESENT: clear to auscultation michael Cardiovascular exam: ABSENT: diastolic murmur, irregular rhythm, systolic murmur GI/Abdominal exam: ABSENT: mass, organolmegaly, tenderness Neurological exam: ABSENT: oriented to situation Psychiatric exam: PRESENT: appropriate affect Skin exam: PRESENT: other - medial R heel [id number] Results Laboratory Results: 09/16/16 07:02 09/15/16 09/16/16 04:23 07:02 WBC 9.7 RBC 3.58 L Hgb 11.3 L Hct 31.7 L MCV 89 MCH 31.4 MCHC 35.5 RDW 13.3 Plt Count 119 L Seg Neutrophils % 76.1 Lymphocytes % 8.1 L Monocytes % 11.4 Eosinophils % 4.1 Basophils % 0.3 Absolute Neutrophils 7.4 Absolute Lymphocytes 0.8 Absolute Monocytes 1.1 Absolute Eosinophils 0.4 Absolute Basophils 0.0 Sodium 139.2 Potassium 4.5 Chloride 106 Carbon Dioxide 26 Anion Gap 7 BUN 81 H Creatinine 5.86 H Est GFR ( Amer) 12 L Est GFR (Non-Af Amer) 10 L Glucose 96 Calcium 7.7 L Total Bilirubin 1.0 AST 520 H ALT 351 H Alkaline Phosphatase 48 Total Protein 3.7 L Albumin 1.9 L 09/10/16 09/11/16 09/11/16 19:15 01:16 07:17 Creatine Kinase 31651 H 16699 H 79613 H 09/14/16 09/15/16 09/15/16 05:10 04:23 04:25 Creatine Kinase 80027 H 7346 H Cancelled Impressions: Chest X-Ray 09/10/16 12:29 IMPRESSION: NO ACUTE RADIOGRAPHIC FINDING IN THE CHEST. Forearm X-Ray 09/10/16 12:30 IMPRESSION: NEGATIVE STUDY OF THE RIGHT FOREARM. NO RADIOGRAPHIC EVIDENCE OF ACUTE INJURY. Head CT 09/10/16 12:30 IMPRESSION: CHRONIC CHANGES OF ATROPHY AND MICROVASCULAR ISCHEMIA. NO ACUTE PROCESS. Pelvis X-Ray 09/10/16 12:30 IMPRESSION: NEGATIVE STUDY OF THE PELVIS. Renal Ultrasound 09/12/16 00:00 IMPRESSION: No evidence of acute or chronic renal injury. Incidental note is made of an 8.3 x 9.3 x 7.8 cm simple cyst emanating from the superior pole of the left kidney. The bladder is not evaluated as it is decompressed by a Naranjo catheter. Assessment & Plan - Diagnosis (1) GORGE (acute kidney injury) Is this a current diagnosis for this admission?: YesPlan: dialysis (2) Rhabdomyolysis Qualifiers: Rhabdomyolysis type: non-traumatic Qualified Code(s): M62.82 - Rhabdomyolysis Is this a current diagnosis for this admission?: Yes (3) Bacteremia Is this a current diagnosis for this admission?: YesPlan: continue ceftri (4) Thrombocytopenia Is this a current diagnosis for this admission?: Yes (5) DIC (disseminated intravascular coagulation) Is this a current diagnosis for this admission?: Yes (6) Abnormal LFTs (liver function tests) Is this a current diagnosis for this admission?: YesPlan: serology negative (7) Lewy body Parkinson disease Is this a current diagnosis for this admission?: Yes (8) Decubital ulcer Qualifiers: Pressure ulcer location: heel Pressure ulcer stage: stage 2 Laterality: right Qualified Code(s): L89.612 - Pressure ulcer of right heel, stage 2 Is this a current diagnosis for this admission?: YesPlan: worst ulcers on L aspects where laid. Boots - Inpatient Certification Medical Necessity: Failure to Improve With Outpatient Therapy, Significant Comorbidiites Make Outpatient Treatment Too Risky, Need Close Monitoring Due to Risk of Patient Decompensation, Need For IV Fluids, Need For Continuous Telemetry Monitoring, Risk of Complication if Not Cared For in Hospital, Risk of Diagnosis Which Will Require Inpatient Eval/Care/Monitoring
[2016-09-16 08:38] LABS: ANION GAP 9 (5-19); BLOOD UREA NITROGEN 95 mg/dL (7-20); CALCIUM 7.8 mg/dL (8.4-10.2); CARBON DIOXIDE 25 mmol/L (22-30); CHLORIDE 106 mmol/L (98-107); CREATININE RESULT 7.57 mg/dL (0.52-1.25); GLUCOSE 133 mg/dL (75-110); POTASSIUM 4.4 mmol/L (3.6-5.0); SODIUM 140.2 mmol/L (137-145)
[2016-09-16] MEDS ORDERED: TUBERCULIN,PURIF.PROT.DERIV. 5 TU/0.1 ML TEST 1 ML VIAL ID PRN (09:11)
[2016-09-16] MEDS ORDERED: HEPARIN SOD (PORCINE) 1,000 UNIT/ML 10 ML VIAL IV PRN (10:04)
[2016-09-16] MEDS: CEFTRIAXONE 1 GM/D5W RTU 1 GM/50 ML RTUPB IV SCH (11:06)
[2016-09-16] MEDS: FAMOTIDINE INJ/PF 20 MG/2 ML SDV IV SCH ×2 (11:06→21:13)
--- NOTE | 2016-09-16 15:19 | PDOC PROGRESS REPORT ---
Subjective Progress Note for:: 09/16/16 Subjective:: Patient seen in the hospital today. He is being seen on dialysis. But his speech is not very clear as is quite garbled labs were reviewed. Labs were reviewed and shows renal function still quite poor. His urine output is quite poor. Dialysis orders were discussed with the treating nurse. Dialysis is being supervised to ensure a safe and smooth procedure. Physical Exam Vital Signs: Temp Pulse Resp BP Pulse Ox 98.9 F 69 17 129/69 H 97 09/16/16 11:57 09/16/16 11:57 09/16/16 11:57 09/16/16 11:57 09/16/16 11:57 Intake & Output 09/15/16 09/16/16 09/17/16 06:59 06:59 06:59 Intake Total 2090 2180 240 Output Total 85 175 1075 Balance 2004 Weight 82.3 kg 82.3 kg General appearance: PRESENT: no acute distress Respiratory exam: PRESENT: clear to auscultation michael. ABSENT: crackles, rhonchi Cardiovascular exam: PRESENT: diastolic murmur, RRR, +S1, +S2 GI/Abdominal exam: PRESENT: normal bowel sounds, soft. ABSENT: ascites, distended, firm, organomegaly, tenderness Neurological exam: PRESENT: awake. ABSENT: alert, oriented to person, oriented to place Skin exam: ABSENT: erythema, mottled Results Laboratory Results: 09/16/16 07:02 09/16/16 07:02 09/16/16 09/16/16 07:02 07:02 WBC 9.7 RBC 3.58 L Hgb 11.3 L Hct 31.7 L MCV 89 MCH 31.4 MCHC 35.5 RDW 13.3 Plt Count 119 L Seg Neutrophils % 76.1 Lymphocytes % 8.1 L Monocytes % 11.4 Eosinophils % 4.1 Basophils % 0.3 Absolute Neutrophils 7.4 Absolute Lymphocytes 0.8 Absolute Monocytes 1.1 Absolute Eosinophils 0.4 Absolute Basophils 0.0 Sodium 140.2 Potassium 4.4 Chloride 106 Carbon Dioxide 25 Anion Gap 9 BUN 95 H Creatinine 7.57 H Est GFR ( Amer) 9 L Est GFR (Non-Af Amer) 7 L Glucose 133 H Calcium 7.8 L 09/10/16 09/11/16 09/11/16 19:15 01:16 07:17 Creatine Kinase 31451 H 50539 H 25649 H 09/14/16 09/15/16 09/15/16 05:10 04:23 04:25 Creatine Kinase 36568 H 7346 H Cancelled Impressions: Chest X-Ray 09/10/16 12:29 IMPRESSION: NO ACUTE RADIOGRAPHIC FINDING IN THE CHEST. Forearm X-Ray 09/10/16 12:30 IMPRESSION: NEGATIVE STUDY OF THE RIGHT FOREARM. NO RADIOGRAPHIC EVIDENCE OF ACUTE INJURY. Head CT 09/10/16 12:30 IMPRESSION: CHRONIC CHANGES OF ATROPHY AND MICROVASCULAR ISCHEMIA. NO ACUTE PROCESS. Pelvis X-Ray 09/10/16 12:30 IMPRESSION: NEGATIVE STUDY OF THE PELVIS. Renal Ultrasound 09/12/16 00:00 IMPRESSION: No evidence of acute or chronic renal injury. Incidental note is made of an 8.3 x 9.3 x 7.8 cm simple cyst emanating from the superior pole of the left kidney. The bladder is not evaluated as it is decompressed by a Naranjo catheter. Assessment & Plan - Diagnosis (1) Hypocalcemia Plan: stable. (3) GORGE (acute kidney injury) Is this a current diagnosis for this admission?: YesPlan: Secondary to acute rhabdomyolysis. Now oligo anuric. He is undergoing dialysis without any issues. dialysis is being supervised to ensure a safe and smooth procedure.Orders were discussed with the treating nurse Raegan. (4) Encephalopathy Plan: Secondary to acute rhabdomyolysis and uremia. Comparatively better than when I saw him couple of days ago. (5) Lewy body Parkinson disease Is this a current diagnosis for this admission?: Yes (6) Rhabdomyolysis Qualifiers: Rhabdomyolysis type: non-traumatic Qualified Code(s): M62.82 - Rhabdomyolysis Is this a current diagnosis for this admission?: YesPlan: Secondary to prolonged immobility on the floor after an apparent fall. Severe CPK has come down from a high of around 70,000 to todays of 7000. Plan to continue on hemodialysis until we see renal recovery. We will continue on IV fluids in the meanwhile (7) Parkinsons disease Plan: Resolved (9) Bacteremia Is this a current diagnosis for this admission?: YesPlan: José Luis ribeiro is more sensitive to Clindamycin than rocephin and will change to that.
[2016-09-16] MEDS: CLINDAMYCIN 300 MG/D5W RTU 50 ML IV SCH (21:13)
[2016-09-17] MEDS: CLINDAMYCIN 300 MG/D5W RTU 50 ML IV SCH ×3 (05:09→21:19)
[2016-09-17 05:45] LABS: ALANINE AMINOTRANSFERASE 271 U/L (21-72); ALBUMIN 2.2 g/dL (3.5-5.0); ALKALINE PHOSPHATASE 53 U/L (38-126); ANION GAP 9 (5-19); ASPARTATE AMINO TRANSFERASE 209 U/L (17-59); BILIRUBIN,DIRECT 0.5 mg/dL (0.0-0.4); CALCIUM 7.8 mg/dL (8.4-10.2); CARBON DIOXIDE 28 mmol/L (22-30); CHLORIDE 104 mmol/L (98-107); CREATININE RESULT 5.65 mg/dL (0.52-1.25); GLUCOSE 94 mg/dL (75-110); POTASSIUM 3.9 mmol/L (3.6-5.0); SODIUM 140.5 mmol/L (137-145); TOTAL PROTEIN 4.1 g/dL (6.3-8.2)
[2016-09-17 06:06] LABS: BLOOD UREA NITROGEN 69 mg/dL (7-20)
--- NOTE | 2016-09-17 07:32 | PDOC PROGRESS REPORT ---
Subjective Progress Note for:: 09/17/16 Subjective:: how are you: I AM MAN Physical Exam Vital Signs: Temp Pulse Resp BP Pulse Ox 98.7 F 63 16 141/81 H 94 09/17/16 04:14 09/17/16 04:14 09/17/16 04:14 09/17/16 04:14 09/17/16 04:14 Intake & Output 09/15/16 09/16/16 09/17/16 07:59 07:59 07:59 Intake Total 2090 2180 3117 Output Total 65 175 1145 Balance 2024 2004 1971 Weight 181 lb 7.047 oz 181 lb 7.047 oz 200 lb 2.876 oz General appearance: PRESENT: no acute distress Respiratory exam: PRESENT: clear to auscultation michael Cardiovascular exam: ABSENT: diastolic murmur, irregular rhythm, systolic murmur GI/Abdominal exam: ABSENT: mass, organolmegaly, tenderness Extremities exam: ABSENT: pedal edema Neurological exam: ABSENT: oriented to situation Results Laboratory Results: 09/16/16 07:02 09/17/16 04:29 09/16/16 09/16/16 09/17/16 07:02 07:02 04:29 WBC 9.7 RBC 3.58 L Hgb 11.3 L Hct 31.7 L MCV 89 MCH 31.4 MCHC 35.5 RDW 13.3 Plt Count 119 L Seg Neutrophils % 76.1 Lymphocytes % 8.1 L Monocytes % 11.4 Eosinophils % 4.1 Basophils % 0.3 Absolute Neutrophils 7.4 Absolute Lymphocytes 0.8 Absolute Monocytes 1.1 Absolute Eosinophils 0.4 Absolute Basophils 0.0 Sodium 140.2 140.5 Potassium 4.4 3.9 Chloride 106 104 Carbon Dioxide 25 28 Anion Gap 9 9 BUN 95 H 69 H D Creatinine 7.57 H 5.65 H Est GFR ( Amer) 9 L 12 L Est GFR (Non-Af Amer) 7 L 10 L Glucose 133 H 94 Calcium 7.8 L 7.8 L Total Bilirubin 1.0 AST 209 H ALT 271 H Alkaline Phosphatase 53 Total Protein 4.1 L Albumin 2.2 L Impressions: Chest X-Ray 09/10/16 12:29 IMPRESSION: NO ACUTE RADIOGRAPHIC FINDING IN THE CHEST. Forearm X-Ray 09/10/16 12:30 IMPRESSION: NEGATIVE STUDY OF THE RIGHT FOREARM. NO RADIOGRAPHIC EVIDENCE OF ACUTE INJURY. Head CT 09/10/16 12:30 IMPRESSION: CHRONIC CHANGES OF ATROPHY AND MICROVASCULAR ISCHEMIA. NO ACUTE PROCESS. Pelvis X-Ray 09/10/16 12:30 IMPRESSION: NEGATIVE STUDY OF THE PELVIS. Renal Ultrasound 09/12/16 00:00 IMPRESSION: No evidence of acute or chronic renal injury. Incidental note is made of an 8.3 x 9.3 x 7.8 cm simple cyst emanating from the superior pole of the left kidney. The bladder is not evaluated as it is decompressed by a Naranjo catheter. Assessment & Plan - Diagnosis (1) GORGE (acute kidney injury) Is this a current diagnosis for this admission?: YesPlan: output improving. Dialsysis tomorrow (2) Rhabdomyolysis Qualifiers: Rhabdomyolysis type: non-traumatic Qualified Code(s): M62.82 - Rhabdomyolysis Is this a current diagnosis for this admission?: Yes (3) Bacteremia Is this a current diagnosis for this admission?: YesPlan: continue clinda (4) Thrombocytopenia Is this a current diagnosis for this admission?: YesPlan: better (5) DIC (disseminated intravascular coagulation) Is this a current diagnosis for this admission?: Yes (6) Abnormal LFTs (liver function tests) Is this a current diagnosis for this admission?: YesPlan: better (7) Lewy body Parkinson disease Is this a current diagnosis for this admission?: Yes (8) Decubital ulcer Qualifiers: Pressure ulcer location: heel Pressure ulcer stage: stage 2 Laterality: right Qualified Code(s): L89.612 - Pressure ulcer of right heel, stage 2 Is this a current diagnosis for this admission?: Yes - Inpatient Certification Medical Necessity: Significant Comorbidiites Make Outpatient Treatment Too Risky , Need Close Monitoring Due to Risk of Patient Decompensation, Need For IV Fluids, Need For Continuous Telemetry Monitoring, Need for IV Antibiotics, Risk of Complication if Not Cared For in Hospital, Risk of Diagnosis Which Will Require Inpatient Eval/Care/Monitoring
[2016-09-17] MEDS: ASPIRIN 81 MG TABLET, CHEWABLE PO SCH (09:24)
[2016-09-17] MEDS: FAMOTIDINE INJ/PF 20 MG/2 ML SDV IV SCH (09:24)
[2016-09-17] MEDS: NORMAL SALINE 1000 ML 1,000 ML IV PRN (09:57)
[2016-09-17] MEDS ORDERED: RASAGILINE MESYLATE 1 MG PO SCH (10:00)
[2016-09-17] MEDS ORDERED: NORMAL SALINE 1000 ML 1,000 ML IV PRN (11:55)
--- NOTE | 2016-09-17 12:14 | PDOC PROGRESS REPORT ---
Subjective Progress Note for:: 09/17/16 Subjective:: Patient was laying comfortably in his bed. Today his speech is still hard to comprehend due to the way he talks. He was alert to person, but not place and time. He could not raise his arms up because he was altered and not able to follow commands. Physical Exam Vital Signs: Temp Pulse Resp BP Pulse Ox 98.7 F 59 L 19 143/71 H 96 09/17/16 07:45 09/17/16 07:45 09/17/16 07:45 09/17/16 07:45 09/17/16 07:45 Intake & Output 09/16/16 09/17/16 09/18/16 06:59 06:59 06:59 Intake Total 2180 3117 Output Total 175 1145 Balance 2004 1971 Weight 82.3 kg 90.8 kg General appearance: PRESENT: no acute distress, thin Head exam: PRESENT: atraumatic, normocephalic Mouth exam: PRESENT: moist, neck supple Neck exam: ABSENT: full ROM, JVD Respiratory exam: PRESENT: crackles. ABSENT: accessory muscle use, chest wall tenderness, clear to auscultation michael, tachypnea, wheezes Cardiovascular exam: PRESENT: diastolic murmur, RRR, +S1, +S2 GI/Abdominal exam: PRESENT: normal bowel sounds, soft. ABSENT: ascites, distended, firm, organomegaly, tenderness Neurological exam: PRESENT: altered, awake, oriented to person. ABSENT: oriented to place, oriented to time, oriented to situation Psychiatric exam: PRESENT: flat affect. ABSENT: appropriate affect, normal mood Skin exam: PRESENT: dry, intact, petechiae - -chest and arms, rash, warm. ABSENT: cyanosis Results Laboratory Results: 09/16/16 07:02 09/17/16 04:29 09/17/16 04:29 Sodium 140.5 Potassium 3.9 Chloride 104 Carbon Dioxide 28 Anion Gap 9 BUN 69 H D Creatinine 5.65 H Est GFR ( Amer) 12 L Est GFR (Non-Af Amer) 10 L Glucose 94 Calcium 7.8 L Total Bilirubin 1.0 AST 209 H ALT 271 H Alkaline Phosphatase 53 Total Protein 4.1 L Albumin 2.2 L 09/10/16 09/11/16 09/11/16 19:15 01:16 07:17 Creatine Kinase 47449 H 13091 H 54386 H 09/14/16 09/15/16 09/15/16 05:10 04:23 04:25 Creatine Kinase 73531 H 7346 H Cancelled Impressions: Chest X-Ray 09/10/16 12:29 IMPRESSION: NO ACUTE RADIOGRAPHIC FINDING IN THE CHEST. Forearm X-Ray 09/10/16 12:30 IMPRESSION: NEGATIVE STUDY OF THE RIGHT FOREARM. NO RADIOGRAPHIC EVIDENCE OF ACUTE INJURY. Head CT 09/10/16 12:30 IMPRESSION: CHRONIC CHANGES OF ATROPHY AND MICROVASCULAR ISCHEMIA. NO ACUTE PROCESS. Pelvis X-Ray 09/10/16 12:30 IMPRESSION: NEGATIVE STUDY OF THE PELVIS. Renal Ultrasound 09/12/16 00:00 IMPRESSION: No evidence of acute or chronic renal injury. Incidental note is made of an 8.3 x 9.3 x 7.8 cm simple cyst emanating from the superior pole of the left kidney. The bladder is not evaluated as it is decompressed by a Naranjo catheter. Assessment & Plan - Diagnosis (1) GORGE (acute kidney injury) Is this a current diagnosis for this admission?: YesPlan: Creatinine looks to had made a slight improvement. Urine out put is still at an oliguric level. Will continue on dialysis for tomorrow. (2) Abnormal LFTs (liver function tests) Is this a current diagnosis for this admission?: YesPlan: trending down (3) Bacteremia Is this a current diagnosis for this admission?: YesPlan: continue on clindamycin (4) Metabolic acidosis Plan: Looks to be having contraction alkalosis now, will increase NS to 150mL hour (5) Rhabdomyolysis Qualifiers: Rhabdomyolysis type: non-traumatic Qualified Code(s): M62.82 - Rhabdomyolysis Is this a current diagnosis for this admission?: YesPlan: will draw a CPK to see if it is trending down from 7,000 (6) Hypertension Plan: looks to have gone down after getting some fluid off of him - Notes Notes: Patient kidneys look to have not improved yet. Urine output has only increased a slight bit to 150 in a 24 hour period. Ordered for him to continue his morning dialysis.
[2016-09-17] MEDS: DONEPEZIL HCL 5 MG TABLET PO SCH (21:19)
[2016-09-18] MEDS: CLINDAMYCIN 300 MG/D5W RTU 50 ML IV SCH ×3 (05:45→21:54)
--- NOTE | 2016-09-18 08:07 | PDOC PROGRESS REPORT ---
Subjective Progress Note for:: 09/18/16 Subjective:: FINE Physical Exam Vital Signs: Temp Pulse Resp BP Pulse Ox 98.5 F 65 16 135/64 H 97 09/18/16 04:47 09/18/16 04:47 09/18/16 04:47 09/18/16 04:47 09/18/16 04:47 Intake & Output 09/17/16 09/18/16 09/19/16 07:59 07:59 07:59 Intake Total 3117 1905 Output Total 1145 135 Balance 1972 1770 Weight 200 lb 2.876 oz 203 lb 11.314 oz General appearance: PRESENT: no acute distress Respiratory exam: PRESENT: clear to auscultation michael Cardiovascular exam: ABSENT: diastolic murmur, irregular rhythm, systolic murmur GI/Abdominal exam: ABSENT: mass, organolmegaly, tenderness Neurological exam: ABSENT: oriented to situation Psychiatric exam: PRESENT: appropriate affect Skin exam: PRESENT: rash - scattered superficial ulcers not just at pressure points:face chest arms. 1 pustule R arm. Results Laboratory Results: 09/16/16 07:02 09/17/16 04:29 09/10/16 09/11/16 09/11/16 19:15 01:16 07:17 Creatine Kinase 18208 H 66336 H 72282 H 09/14/16 09/15/16 09/15/16 05:10 04:23 04:25 Creatine Kinase 73358 H 7346 H Cancelled 09/17/16 04:29 Creatine Kinase 1521 H Impressions: Chest X-Ray 09/10/16 12:29 IMPRESSION: NO ACUTE RADIOGRAPHIC FINDING IN THE CHEST. Forearm X-Ray 09/10/16 12:30 IMPRESSION: NEGATIVE STUDY OF THE RIGHT FOREARM. NO RADIOGRAPHIC EVIDENCE OF ACUTE INJURY. Head CT 09/10/16 12:30 IMPRESSION: CHRONIC CHANGES OF ATROPHY AND MICROVASCULAR ISCHEMIA. NO ACUTE PROCESS. Pelvis X-Ray 09/10/16 12:30 IMPRESSION: NEGATIVE STUDY OF THE PELVIS. Renal Ultrasound 09/12/16 00:00 IMPRESSION: No evidence of acute or chronic renal injury. Incidental note is made of an 8.3 x 9.3 x 7.8 cm simple cyst emanating from the superior pole of the left kidney. The bladder is not evaluated as it is decompressed by a Naranjo catheter. Assessment & Plan - Diagnosis (1) GORGE (acute kidney injury) Is this a current diagnosis for this admission?: YesPlan: output still poor. Getting dialysis. I told brother yesterday that he will need SNF and maybe long term acute care registered nurse dialysis. (2) Rhabdomyolysis Qualifiers: Rhabdomyolysis type: non-traumatic Qualified Code(s): M62.82 - Rhabdomyolysis Is this a current diagnosis for this admission?: Yes (3) Bacteremia Is this a current diagnosis for this admission?: Yes (4) Thrombocytopenia Is this a current diagnosis for this admission?: Yes (5) DIC (disseminated intravascular coagulation) Is this a current diagnosis for this admission?: Yes (6) Abnormal LFTs (liver function tests) Is this a current diagnosis for this admission?: Yes (7) Lewy body Parkinson disease Is this a current diagnosis for this admission?: Yes (8) Decubital ulcer Qualifiers: Pressure ulcer location: heel Pressure ulcer stage: stage 2 Laterality: right Qualified Code(s): L89.612 - Pressure ulcer of right heel, stage 2 Is this a current diagnosis for this admission?: Yes (9) Impetigo bullosa Is this a current diagnosis for this admission?: YesPlan: try mupirocin. Continue clinda - Inpatient Certification Medical Necessity: Significant Comorbidiites Make Outpatient Treatment Too Risky , Need Close Monitoring Due to Risk of Patient Decompensation, Need for IV Antibiotics, Risk of Complication if Not Cared For in Hospital, Risk of Diagnosis Which Will Require Inpatient Eval/Care/Monitoring
[2016-09-18 08:44] LABS: ABSOLUTE EOSINOPHILS # (AUTO) 0.3 10^3/uL (0.0-0.6); ABSOLUTE MONOCYTES (AUTO) 0.6 10^3/uL (0.1-1.4); BASOPHILS % (AUTO) 0.7 % (0-2); EOSINOPHILS % (AUTO) 4.5 % (0-6); HEMATOCRIT 31.5 % (37.9-51.0); HEMOGLOBIN 10.9 g/dL (13.5-17.0); HGB HCT DIFFERENCE 1.2; LYMPHOCYTES % (AUTO) 14.3 % (13-45); MEAN CORPUSCULAR HEMOGLOBIN 31.2 pg (27.0-33.4); MEAN CORPUSCULAR HGB CONC 34.7 g/dL (32.0-36.0); MEAN CORPUSCULAR VOLUME 90 fl (80-97); MONOCYTES % (AUTO) 8.5 % (3-13); RED BLOOD COUNT 3.51 10^6/uL (4.35-5.55); RED CELL DISTRIBUTION WIDTH 13.5 % (11.5-14.0)
[2016-09-18] MEDS ORDERED: HEPARIN SOD (PORCINE) 1,000 UNIT/ML 10 ML VIAL IV ONE ×2 (08:45→10:00)
[2016-09-18 09:02] LABS: ALANINE AMINOTRANSFERASE 211 U/L (21-72); ALBUMIN 2.1 g/dL (3.5-5.0); ALKALINE PHOSPHATASE 65 U/L (38-126); ANION GAP 7 (5-19); ASPARTATE AMINO TRANSFERASE 131 U/L (17-59); BILIRUBIN,DIRECT 0.4 mg/dL (0.0-0.4); BILIRUBIN,TOTAL 0.7 mg/dL (0.2-1.3); BLOOD UREA NITROGEN 70 mg/dL (7-20); CALCIUM 7.7 mg/dL (8.4-10.2); CARBON DIOXIDE 29 mmol/L (22-30); CHLORIDE 104 mmol/L (98-107); CREATININE RESULT 6.09 mg/dL (0.52-1.25); GLUCOSE 121 mg/dL (75-110); POTASSIUM 3.8 mmol/L (3.6-5.0)
[2016-09-18] MEDS ORDERED: HEPARIN SOD (PORCINE) 1,000 UNIT/ML 10 ML VIAL IV PRN (09:50)
[2016-09-18] MEDS: RASAGILINE MESYLATE PO SCH (12:15)
[2016-09-18] MEDS: ASPIRIN 81 MG TABLET, CHEWABLE PO SCH (12:15)
[2016-09-18] MEDS: FAMOTIDINE INJ/PF 20 MG/2 ML SDV IV SCH (12:15)
[2016-09-18] MEDS: MUPIROCIN 2% OINTMENT 22 GM TP SCH ×3 (12:23→19:46)
--- NOTE | 2016-09-18 14:06 | PDOC PROGRESS REPORT ---
Subjective Progress Note for:: 09/18/16 Subjective:: Patient was seen on hemodialysis today. He seems more awake and responsive. He denies any history of chest pain shortness of breath. Vital signs are stable. Orders were discussed with the treating nurse. Physical Exam Vital Signs: Temp Pulse Resp BP Pulse Ox 98.5 F 68 16 135/64 H 97 09/18/16 04:47 09/18/16 07:00 09/18/16 04:47 09/18/16 04:47 09/18/16 04:47 Intake & Output 09/17/16 09/18/16 09/19/16 06:59 06:59 06:59 Intake Total 3117 1905 Output Total 1145 135 Balance 1972 1770 Weight 90.8 kg 92.4 kg General appearance: PRESENT: no acute distress Respiratory exam: PRESENT: clear to auscultation michael. ABSENT: crackles, rhonchi Cardiovascular exam: PRESENT: diastolic murmur, RRR, +S1, +S2 GI/Abdominal exam: PRESENT: normal bowel sounds, soft. ABSENT: ascites, distended, firm, organomegaly, tenderness Extremities exam: ABSENT: pedal edema Neurological exam: PRESENT: awake, oriented to person Results Laboratory Results: 09/18/16 08:25 09/18/16 08:25 09/18/16 09/18/16 08:25 08:25 WBC 7.0 RBC 3.51 L Hgb 10.9 L Hct 31.5 L MCV 90 MCH 31.2 MCHC 34.7 RDW 13.5 Plt Count 177 Seg Neutrophils % 72.0 Lymphocytes % 14.3 Monocytes % 8.5 Eosinophils % 4.5 Basophils % 0.7 Absolute Neutrophils 5.0 Absolute Lymphocytes 1.0 Absolute Monocytes 0.6 Absolute Eosinophils 0.3 Absolute Basophils 0.0 Sodium 140.0 Potassium 3.8 Chloride 104 Carbon Dioxide 29 Anion Gap 7 BUN 70 H Creatinine 6.09 H Est GFR ( Amer) 11 L Est GFR (Non-Af Amer) 9 L Glucose 121 H Calcium 7.7 L Total Bilirubin 0.7 AST 131 H ALT 211 H Alkaline Phosphatase 65 Total Protein 4.0 L Albumin 2.1 L 09/10/16 09/11/16 09/11/16 19:15 01:16 07:17 Creatine Kinase 26408 H 43802 H 68812 H 09/14/16 09/15/16 09/15/16 05:10 04:23 04:25 Creatine Kinase 19388 H 7346 H Cancelled 09/17/16 04:29 Creatine Kinase 1521 H Impressions: Chest X-Ray 09/10/16 12:29 IMPRESSION: NO ACUTE RADIOGRAPHIC FINDING IN THE CHEST. Forearm X-Ray 09/10/16 12:30 IMPRESSION: NEGATIVE STUDY OF THE RIGHT FOREARM. NO RADIOGRAPHIC EVIDENCE OF ACUTE INJURY. Head CT 09/10/16 12:30 IMPRESSION: CHRONIC CHANGES OF ATROPHY AND MICROVASCULAR ISCHEMIA. NO ACUTE PROCESS. Pelvis X-Ray 09/10/16 12:30 IMPRESSION: NEGATIVE STUDY OF THE PELVIS. Renal Ultrasound 09/12/16 00:00 IMPRESSION: No evidence of acute or chronic renal injury. Incidental note is made of an 8.3 x 9.3 x 7.8 cm simple cyst emanating from the superior pole of the left kidney. The bladder is not evaluated as it is decompressed by a Naranjo catheter. Assessment & Plan - Diagnosis (3) GORGE (acute kidney injury) Is this a current diagnosis for this admission?: YesPlan: Secondary to acute rhabdomyolysis. Now oligo anuric. This is a poor prognostic indicator given the number of days he has been on dialysis/AK I. Continues to get IV fluids. Currently,he is undergoing dialysis without any issues. dialysis is being supervised to ensure a safe and smooth procedure.Orders were discussed with the treating nurse Raegan. (4) Encephalopathy Plan: Secondary to acute rhabdomyolysis and uremia.Improving (5) Lewy body Parkinson disease Is this a current diagnosis for this admission?: YesPlan: Status quo with deficits. (6) Rhabdomyolysis Qualifiers: Rhabdomyolysis type: non-traumatic Qualified Code(s): M62.82 - Rhabdomyolysis Is this a current diagnosis for this admission?: YesPlan: Improving as latest CPK is down 2500 as compared to previous 7000. Monitor (8) Metabolic acidosis Plan: Resolved. (9) Bacteremia Is this a current diagnosis for this admission?: YesPlan: On clindamycin. Normal white count.
[2016-09-18] MEDS: DONEPEZIL HCL 5 MG TABLET PO SCH (21:53)
[2016-09-18] MEDS: HEPARIN SOD (PORCINE) 5,000 UNIT/ML 1 ML SYRINGE SUBCUT SCH (21:54)
[2016-09-19 05:08] LABS: ALANINE AMINOTRANSFERASE 189 U/L (21-72); ALBUMIN 2.2 g/dL (3.5-5.0); ALKALINE PHOSPHATASE 63 U/L (38-126); ANION GAP 7 (5-19); ASPARTATE AMINO TRANSFERASE 103 U/L (17-59); BILIRUBIN,DIRECT 0.4 mg/dL (0.0-0.4); BILIRUBIN,TOTAL 0.7 mg/dL (0.2-1.3); BLOOD UREA NITROGEN 58 mg/dL (7-20); CALCIUM 7.8 mg/dL (8.4-10.2); CARBON DIOXIDE 29 mmol/L (22-30); CHLORIDE 104 mmol/L (98-107); CREATININE RESULT 5.77 mg/dL (0.52-1.25); GLUCOSE 107 mg/dL (75-110); SODIUM 139.8 mmol/L (137-145); TOTAL PROTEIN 4.2 g/dL (6.3-8.2)
[2016-09-19] MEDS: CLINDAMYCIN 300 MG/D5W RTU 50 ML IV SCH ×3 (05:20→21:44)
--- NOTE | 2016-09-19 07:11 | PDOC PROGRESS REPORT ---
Subjective Progress Note for:: 09/19/16 Subjective:: no pain Physical Exam Vital Signs: Temp Pulse Resp BP Pulse Ox 98.1 F 69 22 H 139/79 H 97 09/19/16 04:22 09/19/16 04:22 09/19/16 04:22 09/19/16 04:22 09/19/16 04:22 Intake & Output 09/17/16 09/18/16 09/19/16 07:59 07:59 07:59 Intake Total 3117 1905 1413 Output Total 2581 507 9377 Balance 1972 1770 -942 Weight 200 lb 2.876 oz 203 lb 11.314 oz 195 lb 8.8 oz General appearance: PRESENT: no acute distress Respiratory exam: PRESENT: clear to auscultation michael Cardiovascular exam: ABSENT: diastolic murmur, irregular rhythm, systolic murmur GI/Abdominal exam: ABSENT: mass, organolmegaly, tenderness Extremities exam: ABSENT: pedal edema Neurological exam: ABSENT: oriented to situation Psychiatric exam: PRESENT: appropriate affect Skin exam: PRESENT: other - medial R heel bulla now 7cm Results Laboratory Results: 09/18/16 08:25 09/19/16 04:04 Abnormal - 24 hr 09/18/16 09/18/16 09/19/16 08:25 08:25 04:04 RBC 3.51 L Hgb 10.9 L Hct 31.5 L BUN 70 H 58 H Creatinine 6.09 H 5.77 H Est GFR ( Amer) 11 L 12 L Est GFR (Non-Af Amer) 9 L 10 L Glucose 121 H Calcium 7.7 L 7.8 L AST 131 H 103 H ALT 211 H 189 H Total Protein 4.0 L 4.2 L Albumin 2.1 L 2.2 L Impressions: Chest X-Ray 09/10/16 12:29 IMPRESSION: NO ACUTE RADIOGRAPHIC FINDING IN THE CHEST. Forearm X-Ray 09/10/16 12:30 IMPRESSION: NEGATIVE STUDY OF THE RIGHT FOREARM. NO RADIOGRAPHIC EVIDENCE OF ACUTE INJURY. Head CT 09/10/16 12:30 IMPRESSION: CHRONIC CHANGES OF ATROPHY AND MICROVASCULAR ISCHEMIA. NO ACUTE PROCESS. Pelvis X-Ray 09/10/16 12:30 IMPRESSION: NEGATIVE STUDY OF THE PELVIS. Renal Ultrasound 09/12/16 00:00 IMPRESSION: No evidence of acute or chronic renal injury. Incidental note is made of an 8.3 x 9.3 x 7.8 cm simple cyst emanating from the superior pole of the left kidney. The bladder is not evaluated as it is decompressed by a Naranjo catheter. Assessment & Plan - Diagnosis (1) GORGE (acute kidney injury) Is this a current diagnosis for this admission?: YesPlan: urine abut 10/h. IV NS150. CK1k. Suspect will not improve enough to live without chronic dialysis which would be futile with his advance dementia. Brother is looking for SNF. Decrease NS to 50/h to prevent overload before dialysis in 2d (2) Rhabdomyolysis Qualifiers: Rhabdomyolysis type: non-traumatic Qualified Code(s): M62.82 - Rhabdomyolysis Is this a current diagnosis for this admission?: Yes (3) Bacteremia Is this a current diagnosis for this admission?: Yes (4) Thrombocytopenia Is this a current diagnosis for this admission?: Yes (5) DIC (disseminated intravascular coagulation) Is this a current diagnosis for this admission?: YesPlan: back on heparin (6) Abnormal LFTs (liver function tests) Is this a current diagnosis for this admission?: Yes (7) Lewy body Parkinson disease Is this a current diagnosis for this admission?: Yes (8) Decubital ulcer Qualifiers: Pressure ulcer location: heel Pressure ulcer stage: stage 2 Laterality: right Qualified Code(s): L89.612 - Pressure ulcer of right heel, stage 2 Is this a current diagnosis for this admission?: Yes (9) Impetigo bullosa Is this a current diagnosis for this admission?: YesPlan: ? pemphigoid or pemphigus. Would need biopsy with special stains then immunosuppressants. Not a priority now. - Inpatient Certification Medical Necessity: Significant Comorbidiites Make Outpatient Treatment Too Risky , Need Close Monitoring Due to Risk of Patient Decompensation, Need For IV Fluids, Need for IV Antibiotics, Risk of Complication if Not Cared For in Hospital, Risk of Diagnosis Which Will Require Inpatient Eval/Care/Monitoring
[2016-09-19] MEDS: HEPARIN SOD (PORCINE) 5,000 UNIT/ML 1 ML SYRINGE SUBCUT SCH ×2 (11:25→21:45)
[2016-09-19] MEDS: MUPIROCIN 2% OINTMENT 22 GM TP SCH ×3 (11:25→18:51)
[2016-09-19] MEDS: FAMOTIDINE INJ/PF 20 MG/2 ML SDV IV SCH (11:26)
[2016-09-19] MEDS: RASAGILINE MESYLATE PO SCH (11:26)
[2016-09-19] MEDS: NORMAL SALINE 1000 ML 1,000 ML IV PRN (11:33)
[2016-09-19] MEDS: DONEPEZIL HCL 5 MG TABLET PO SCH (21:45)
[2016-09-20] MEDS: CLINDAMYCIN 300 MG/D5W RTU 50 ML IV SCH ×3 (05:43→21:40)
--- NOTE | 2016-09-20 07:36 | PDOC PROGRESS REPORT ---
Subjective Progress Note for:: 09/20/16 Subjective:: gibberish Physical Exam Vital Signs: Temp Pulse Resp BP Pulse Ox 98.3 F 61 20 144/74 H 97 09/20/16 07:11 09/20/16 07:11 09/20/16 07:11 09/20/16 07:11 09/20/16 07:11 Intake & Output 09/18/16 09/19/16 09/20/16 07:59 07:59 07:59 Intake Total 1905 1413 1025 Output Total 135 2355 750 Balance 1770 -942 275 Weight 203 lb 11.314 oz 195 lb 8.8 oz 195 lb 1.745 oz General appearance: PRESENT: no acute distress Respiratory exam: PRESENT: clear to auscultation michael Cardiovascular exam: ABSENT: diastolic murmur, irregular rhythm, systolic murmur GI/Abdominal exam: ABSENT: mass, organolmegaly, tenderness Extremities exam: ABSENT: pedal edema Neurological exam: ABSENT: oriented to situation Skin exam: PRESENT: other - diaphoretic Results Laboratory Results: 09/18/16 08:25 09/19/16 04:04 Impressions: Chest X-Ray 09/10/16 12:29 IMPRESSION: NO ACUTE RADIOGRAPHIC FINDING IN THE CHEST. Forearm X-Ray 09/10/16 12:30 IMPRESSION: NEGATIVE STUDY OF THE RIGHT FOREARM. NO RADIOGRAPHIC EVIDENCE OF ACUTE INJURY. Head CT 09/10/16 12:30 IMPRESSION: CHRONIC CHANGES OF ATROPHY AND MICROVASCULAR ISCHEMIA. NO ACUTE PROCESS. Pelvis X-Ray 09/10/16 12:30 IMPRESSION: NEGATIVE STUDY OF THE PELVIS. Renal Ultrasound 09/12/16 00:00 IMPRESSION: No evidence of acute or chronic renal injury. Incidental note is made of an 8.3 x 9.3 x 7.8 cm simple cyst emanating from the superior pole of the left kidney. The bladder is not evaluated as it is decompressed by a Naranjo catheter. Assessment & Plan - Diagnosis (1) GORGE (acute kidney injury) Is this a current diagnosis for this admission?: YesPlan: [id number] (2) Rhabdomyolysis Qualifiers: Rhabdomyolysis type: non-traumatic Qualified Code(s): M62.82 - Rhabdomyolysis Is this a current diagnosis for this admission?: Yes (3) Bacteremia Is this a current diagnosis for this admission?: YesPlan: [id number]. Recultured (4) Thrombocytopenia Is this a current diagnosis for this admission?: Yes (5) DIC (disseminated intravascular coagulation) Is this a current diagnosis for this admission?: Yes (6) Abnormal LFTs (liver function tests) Is this a current diagnosis for this admission?: Yes (7) Lewy body Parkinson disease Is this a current diagnosis for this admission?: YesPlan: I told brother I plan 3 more dialysis then SNF without dialysis for hospice care. (8) Decubital ulcer Qualifiers: Pressure ulcer location: heel Pressure ulcer stage: stage 2 Laterality: right Qualified Code(s): L89.612 - Pressure ulcer of right heel, stage 2 Is this a current diagnosis for this admission?: Yes (9) Impetigo bullosa Is this a current diagnosis for this admission?: Yes - Inpatient Certification Medical Necessity: Significant Comorbidiites Make Outpatient Treatment Too Risky , Need Close Monitoring Due to Risk of Patient Decompensation, Need For IV Fluids, Need for IV Antibiotics, Risk of Complication if Not Cared For in Hospital, Risk of Diagnosis Which Will Require Inpatient Eval/Care/Monitoring
[2016-09-20] MEDS: HEPARIN SOD (PORCINE) 5,000 UNIT/ML 1 ML SYRINGE SUBCUT SCH ×2 (10:21→21:40)
[2016-09-20] MEDS: FAMOTIDINE INJ/PF 20 MG/2 ML SDV IV SCH (10:21)
[2016-09-20] MEDS: MUPIROCIN 2% OINTMENT 22 GM TP SCH ×3 (10:21→17:54)
[2016-09-20] MEDS: RASAGILINE MESYLATE PO SCH (10:27)
[2016-09-20] MEDS: NORMAL SALINE 1000 ML 1,000 ML IV PRN (11:34)
[2016-09-20 18:17] LABS: ALANINE AMINOTRANSFERASE 147 U/L (21-72); ALBUMIN 2.3 g/dL (3.5-5.0); ALKALINE PHOSPHATASE 57 U/L (38-126); ANION GAP 10 (5-19); ASPARTATE AMINO TRANSFERASE 70 U/L (17-59); BILIRUBIN,DIRECT 0.5 mg/dL (0.0-0.4); BILIRUBIN,TOTAL 0.7 mg/dL (0.2-1.3); BLOOD UREA NITROGEN 79 mg/dL (7-20); CALCIUM 7.8 mg/dL (8.4-10.2); CARBON DIOXIDE 26 mmol/L (22-30); CHLORIDE 103 mmol/L (98-107); GLUCOSE 105 mg/dL (75-110); POTASSIUM 4.3 mmol/L (3.6-5.0); SODIUM 138.9 mmol/L (137-145); TOTAL PROTEIN 4.5 g/dL (6.3-8.2)
[2016-09-20] MEDS: DONEPEZIL HCL 5 MG TABLET PO SCH (21:41)
[2016-09-21 05:11] LABS: ABSOLUTE EOSINOPHILS # (AUTO) 0.2 10^3/uL (0.0-0.6); ABSOLUTE LYMPHOCYTES (AUTO) 1.4 10^3/uL (0.5-4.7); ABSOLUTE MONOCYTES (AUTO) 0.7 10^3/uL (0.1-1.4); ABSOLUTE NEUT (AUTO) 7.8 10^3/uL (1.7-8.2); BASOPHILS % (AUTO) 0.4 % (0-2); EOSINOPHILS % (AUTO) 2.4 % (0-6); HEMATOCRIT 28.4 % (37.9-51.0); HGB HCT DIFFERENCE 1.6; LYMPHOCYTES % (AUTO) 13.8 % (13-45); MEAN CORPUSCULAR HEMOGLOBIN 31.5 pg (27.0-33.4); MEAN CORPUSCULAR HGB CONC 35.1 g/dL (32.0-36.0); MEAN CORPUSCULAR VOLUME 90 fl (80-97); MONOCYTES % (AUTO) 6.8 % (3-13); RED BLOOD COUNT 3.17 10^6/uL (4.35-5.55); RED CELL DISTRIBUTION WIDTH 13.3 % (11.5-14.0); SEGMENTED NEUTROPHILS % (AUTO) 76.6 % (42-78); WHITE BLOOD COUNT 10.2 10^3/uL (4.0-10.5)
[2016-09-21] MEDS: CLINDAMYCIN 300 MG/D5W RTU 50 ML IV SCH ×3 (05:30→21:14)
[2016-09-21 05:41] LABS: ANION GAP 10 (5-19); BLOOD UREA NITROGEN 81 mg/dL (7-20); CALCIUM 7.9 mg/dL (8.4-10.2); CARBON DIOXIDE 25 mmol/L (22-30); CHLORIDE 105 mmol/L (98-107); CREATININE RESULT 8.28 mg/dL (0.52-1.25); GLUCOSE 95 mg/dL (75-110); POTASSIUM 4.4 mmol/L (3.6-5.0); SODIUM 140.4 mmol/L (137-145)
[2016-09-21] MEDS ORDERED: HEPARIN SOD (PORCINE) 1,000 UNIT/ML 10 ML VIAL IV PRN ×5 (07:00→13:20)
--- NOTE | 2016-09-21 07:41 | PDOC PROGRESS REPORT ---
Subjective Progress Note for:: 09/21/16 Subjective:: OK Physical Exam Vital Signs: Temp Pulse Resp BP Pulse Ox 98.1 F 67 22 H 149/84 H 100 09/20/16 19:57 09/21/16 02:00 09/20/16 19:57 09/20/16 19:57 09/20/16 19:57 Intake & Output 09/19/16 09/20/16 09/21/16 07:59 07:59 07:59 Intake Total 1413 1625 1550 Output Total 2355 750 850 Balance -942 875 700 Weight 195 lb 8.8 oz 195 lb 1.745 oz 203 lb 7.787 oz General appearance: PRESENT: no acute distress Respiratory exam: PRESENT: clear to auscultation michael Cardiovascular exam: ABSENT: diastolic murmur, irregular rhythm, systolic murmur GI/Abdominal exam: ABSENT: mass, organolmegaly, tenderness Extremities exam: PRESENT: other. ABSENT: pedal edema - R hand edema POA Neurological exam: ABSENT: oriented to situation Psychiatric exam: PRESENT: appropriate affect Additional comments: Abnormal - 24 hr 09/20/16 09/21/16 09/21/16 17:18 04:21 04:21 RBC 3.17 L Hgb 10.0 L Hct 28.4 L BUN 79 H 81 H Creatinine 7.60 H 8.28 H Est GFR ( Amer) 9 L 8 L Est GFR (Non-Af Amer) 7 L 6 L Calcium 7.8 L 7.9 L Direct Bilirubin 0.5 H AST 70 H ALT 147 H Total Protein 4.5 L Albumin 2.3 L Results Laboratory Results: 09/21/16 04:21 09/21/16 04:21 09/20/16 09/21/16 09/21/16 17:18 04:21 04:21 WBC 10.2 RBC 3.17 L Hgb 10.0 L Hct 28.4 L MCV 90 MCH 31.5 MCHC 35.1 RDW 13.3 Plt Count 217 Seg Neutrophils % 76.6 Lymphocytes % 13.8 Monocytes % 6.8 Eosinophils % 2.4 Basophils % 0.4 Absolute Neutrophils 7.8 Absolute Lymphocytes 1.4 Absolute Monocytes 0.7 Absolute Eosinophils 0.2 Absolute Basophils 0.0 Sodium 138.9 140.4 Potassium 4.3 4.4 Chloride 103 105 Carbon Dioxide 26 25 Anion Gap 10 10 BUN 79 H 81 H Creatinine 7.60 H 8.28 H Est GFR ( Amer) 9 L 8 L Est GFR (Non-Af Amer) 7 L 6 L Glucose 105 95 Calcium 7.8 L 7.9 L Total Bilirubin 0.7 AST 70 H ALT 147 H Alkaline Phosphatase 57 Total Protein 4.5 L Albumin 2.3 L 09/10/16 09/11/16 09/11/16 19:15 01:16 07:17 Creatine Kinase 30852 H 33842 H 60466 H 09/14/16 09/15/16 09/15/16 05:10 04:23 04:25 Creatine Kinase 63672 H 7346 H Cancelled 09/17/16 04:29 Creatine Kinase 1521 H Impressions: Chest X-Ray 09/10/16 12:29 IMPRESSION: NO ACUTE RADIOGRAPHIC FINDING IN THE CHEST. Forearm X-Ray 09/10/16 12:30 IMPRESSION: NEGATIVE STUDY OF THE RIGHT FOREARM. NO RADIOGRAPHIC EVIDENCE OF ACUTE INJURY. Head CT 09/10/16 12:30 IMPRESSION: CHRONIC CHANGES OF ATROPHY AND MICROVASCULAR ISCHEMIA. NO ACUTE PROCESS. Pelvis X-Ray 09/10/16 12:30 IMPRESSION: NEGATIVE STUDY OF THE PELVIS. Renal Ultrasound 09/12/16 00:00 IMPRESSION: No evidence of acute or chronic renal injury. Incidental note is made of an 8.3 x 9.3 x 7.8 cm simple cyst emanating from the superior pole of the left kidney. The bladder is not evaluated as it is decompressed by a Naranjo catheter. Assessment & Plan - Diagnosis (1) GORGE (acute kidney injury) Is this a current diagnosis for this admission?: YesPlan: output increasing but function decreasing. Dialysis MWF this week then stop (2) Rhabdomyolysis Qualifiers: Rhabdomyolysis type: non-traumatic Qualified Code(s): M62.82 - Rhabdomyolysis Is this a current diagnosis for this admission?: YesPlan: urine now pink (3) Bacteremia Is this a current diagnosis for this admission?: YesPlan: afebrile. Continue clinda (4) Thrombocytopenia Is this a current diagnosis for this admission?: Yes (5) DIC (disseminated intravascular coagulation) Is this a current diagnosis for this admission?: Yes (6) Abnormal LFTs (liver function tests) Is this a current diagnosis for this admission?: Yes (7) Lewy body Parkinson disease Is this a current diagnosis for this admission?: Yes (8) Decubital ulcer Qualifiers: Pressure ulcer location: heel Pressure ulcer stage: stage 2 Laterality: right Qualified Code(s): L89.612 - Pressure ulcer of right heel, stage 2 Is this a current diagnosis for this admission?: Yes (9) Impetigo bullosa Is this a current diagnosis for this admission?: Yes
[2016-09-21] MEDS: HEPARIN SOD (PORCINE) 5,000 UNIT/ML 1 ML SYRINGE SUBCUT SCH ×2 (11:20→21:15)
[2016-09-21] MEDS: FAMOTIDINE INJ/PF 20 MG/2 ML SDV IV SCH (11:20)
[2016-09-21] MEDS: MUPIROCIN 2% OINTMENT 22 GM TP SCH ×3 (11:20→18:04)
--- NOTE | 2016-09-21 13:43 | PDOC PROGRESS REPORT ---
Subjective Progress Note for:: 09/21/16 Subjective:: Patient was seen on hemodialysis today. He seems more awake and responsive. Urine output is relatively stable around 700 800 cc per day. Review shows no real improvement in the numbers. He denies any history of chest pain shortness of breath. Vital signs are stable. Orders were discussed with the treating nurse. Physical Exam Vital Signs: Temp Pulse Resp BP Pulse Ox 98.5 F 72 22 H 168/77 H 97 09/21/16 07:21 09/21/16 07:21 09/21/16 07:21 09/21/16 07:21 09/21/16 07:21 Intake & Output 09/20/16 09/21/16 09/22/16 06:59 06:59 06:59 Intake Total 1625 1550 Output Total 750 850 Balance 875 700 Weight 88.5 kg 92.3 kg General appearance: PRESENT: no acute distress Respiratory exam: PRESENT: clear to auscultation michael. ABSENT: crackles, rhonchi Cardiovascular exam: PRESENT: diastolic murmur, RRR, +S1, +S2 GI/Abdominal exam: PRESENT: normal bowel sounds, soft. ABSENT: ascites, distended, firm, organomegaly, tenderness Neurological exam: PRESENT: awake, oriented to person Results Laboratory Results: 09/21/16 04:21 09/21/16 04:21 09/20/16 09/21/16 09/21/16 17:18 04:21 04:21 WBC 10.2 RBC 3.17 L Hgb 10.0 L Hct 28.4 L MCV 90 MCH 31.5 MCHC 35.1 RDW 13.3 Plt Count 217 Seg Neutrophils % 76.6 Lymphocytes % 13.8 Monocytes % 6.8 Eosinophils % 2.4 Basophils % 0.4 Absolute Neutrophils 7.8 Absolute Lymphocytes 1.4 Absolute Monocytes 0.7 Absolute Eosinophils 0.2 Absolute Basophils 0.0 Sodium 138.9 140.4 Potassium 4.3 4.4 Chloride 103 105 Carbon Dioxide 26 25 Anion Gap 10 10 BUN 79 H 81 H Creatinine 7.60 H 8.28 H Est GFR ( Amer) 9 L 8 L Est GFR (Non-Af Amer) 7 L 6 L Glucose 105 95 Calcium 7.8 L 7.9 L Total Bilirubin 0.7 AST 70 H ALT 147 H Alkaline Phosphatase 57 Total Protein 4.5 L Albumin 2.3 L 09/10/16 09/11/16 09/11/16 19:15 01:16 07:17 Creatine Kinase 82873 H 77147 H 99294 H 09/14/16 09/15/16 09/15/16 05:10 04:23 04:25 Creatine Kinase 19135 H 7346 H Cancelled 09/17/16 04:29 Creatine Kinase 1521 H Impressions: Chest X-Ray 09/10/16 12:29 IMPRESSION: NO ACUTE RADIOGRAPHIC FINDING IN THE CHEST. Forearm X-Ray 09/10/16 12:30 IMPRESSION: NEGATIVE STUDY OF THE RIGHT FOREARM. NO RADIOGRAPHIC EVIDENCE OF ACUTE INJURY. Head CT 09/10/16 12:30 IMPRESSION: CHRONIC CHANGES OF ATROPHY AND MICROVASCULAR ISCHEMIA. NO ACUTE PROCESS. Pelvis X-Ray 09/10/16 12:30 IMPRESSION: NEGATIVE STUDY OF THE PELVIS. Renal Ultrasound 09/12/16 00:00 IMPRESSION: No evidence of acute or chronic renal injury. Incidental note is made of an 8.3 x 9.3 x 7.8 cm simple cyst emanating from the superior pole of the left kidney. The bladder is not evaluated as it is decompressed by a Naranjo catheter. Assessment & Plan - Diagnosis (3) GORGE (acute kidney injury) Is this a current diagnosis for this admission?: YesPlan: Secondary to acute rhabdomyolysis. Now non oliguric. Continues to get IV fluids. Currently,he is undergoing dialysis without any issues. dialysis is being supervised to ensure a safe and smooth procedure.Orders were discussed with the treating nurse Jessica. Discussed this gentleman's case with Dr. Rodriguez who will be discussing it with his family to determine whether the patient should continue with outpatient chronic hemodialysis or that he should be transferred to alf for rehab and comfort care with hospice. Given his baseline dementia and parkinsonism he is going to be an extremely difficult candidate to undergo outpatient dialysis (4) Encephalopathy Plan: Secondary to acute rhabdomyolysis and uremia.Improving he has got underlying Parkinson's MLO view body disease which gives a certain amount of incoherence and interactions (5) Lewy body Parkinson disease Is this a current diagnosis for this admission?: YesPlan: Status quo with deficits. (6) Rhabdomyolysis Qualifiers: Rhabdomyolysis type: non-traumatic Qualified Code(s): M62.82 - Rhabdomyolysis Is this a current diagnosis for this admission?: Yes (8) Metabolic acidosis Plan: Resolved. (9) Bacteremia Is this a current diagnosis for this admission?: YesPlan: On clindamycin. Normal white count.
[2016-09-21] MEDS: RASAGILINE MESYLATE PO SCH (14:01)
[2016-09-21] MEDS: AMPICILLIN SODIUM/SULBACTAM NA 1.5 GM in NORMAL SALINE 100 ML IV SCH (18:04)
[2016-09-21] MEDS: DONEPEZIL HCL 5 MG TABLET PO SCH (21:15)
[2016-09-22] MEDS: AMPICILLIN SODIUM/SULBACTAM NA 1.5 GM in NORMAL SALINE 100 ML IV SCH (05:55)
[2016-09-22] MEDS: CLINDAMYCIN 300 MG/D5W RTU 50 ML IV SCH (05:58)
[2016-09-22 07:00] LABS: ABSOLUTE EOSINOPHILS # (AUTO) 0.3 10^3/uL (0.0-0.6); ABSOLUTE LYMPHOCYTES (AUTO) 1.1 10^3/uL (0.5-4.7); ABSOLUTE MONOCYTES (AUTO) 0.7 10^3/uL (0.1-1.4); BASOPHILS % (AUTO) 0.4 % (0-2); EOSINOPHILS % (AUTO) 2.6 % (0-6); HEMATOCRIT 28.6 % (37.9-51.0); HEMOGLOBIN 9.8 g/dL (13.5-17.0); HGB HCT DIFFERENCE 0.8; LYMPHOCYTES % (AUTO) 10.7 % (13-45); MEAN CORPUSCULAR HEMOGLOBIN 31.1 pg (27.0-33.4); MEAN CORPUSCULAR HGB CONC 34.3 g/dL (32.0-36.0); MEAN CORPUSCULAR VOLUME 91 fl (80-97); MONOCYTES % (AUTO) 7.2 % (3-13); RED BLOOD COUNT 3.16 10^6/uL (4.35-5.55); RED CELL DISTRIBUTION WIDTH 13.5 % (11.5-14.0); SEGMENTED NEUTROPHILS % (AUTO) 79.1 % (42-78); WHITE BLOOD COUNT 10.1 10^3/uL (4.0-10.5)
[2016-09-22 07:18] LABS: ANION GAP 9 (5-19); BLOOD UREA NITROGEN 57 mg/dL (7-20); CALCIUM 7.6 mg/dL (8.4-10.2); CARBON DIOXIDE 28 mmol/L (22-30); CHLORIDE 103 mmol/L (98-107); CREATININE RESULT 5.91 mg/dL (0.52-1.25); GLUCOSE 97 mg/dL (75-110); POTASSIUM 4.3 mmol/L (3.6-5.0); SODIUM 139.8 mmol/L (137-145)
--- NOTE | 2016-09-22 08:16 | PDOC PROGRESS REPORT ---
Subjective Progress Note for:: 09/22/16 Subjective:: gibberish Physical Exam Vital Signs: Temp Pulse Resp BP Pulse Ox 98.9 F 59 L 20 160/74 H 97 09/22/16 07:36 09/22/16 07:36 09/22/16 07:36 09/22/16 07:36 09/22/16 07:36 Intake & Output 09/21/16 09/22/16 09/23/16 07:59 07:59 07:59 Intake Total 1550 1332 Output Total 850 2500 Balance 700 -1168 Weight 203 lb 7.787 oz 196 lb 6.91 oz General appearance: PRESENT: no acute distress Respiratory exam: PRESENT: clear to auscultation michael Cardiovascular exam: ABSENT: diastolic murmur, irregular rhythm, systolic murmur GI/Abdominal exam: ABSENT: mass, organolmegaly, tenderness Extremities exam: PRESENT: pedal edema - left trace Neurological exam: ABSENT: oriented to situation Psychiatric exam: PRESENT: appropriate affect Results Laboratory Results: 09/22/16 06:30 09/22/16 06:30 Abnormal - 24 hr 09/22/16 09/22/16 06:30 06:30 RBC 3.16 L Hgb 9.8 L Hct 28.6 L Seg Neutrophils % 79.1 H Lymphocytes % 10.7 L BUN 57 H Creatinine 5.91 H Est GFR ( Amer) 11 L Est GFR (Non-Af Amer) 9 L Calcium 7.6 L 09/20/16 09:20 Catheterized Urine Urine Culture - Final Pseudomonas Aeruginosa Impressions: Chest X-Ray 09/10/16 12:29 IMPRESSION: NO ACUTE RADIOGRAPHIC FINDING IN THE CHEST. Forearm X-Ray 09/10/16 12:30 IMPRESSION: NEGATIVE STUDY OF THE RIGHT FOREARM. NO RADIOGRAPHIC EVIDENCE OF ACUTE INJURY. Head CT 09/10/16 12:30 IMPRESSION: CHRONIC CHANGES OF ATROPHY AND MICROVASCULAR ISCHEMIA. NO ACUTE PROCESS. Pelvis X-Ray 09/10/16 12:30 IMPRESSION: NEGATIVE STUDY OF THE PELVIS. Renal Ultrasound 09/12/16 00:00 IMPRESSION: No evidence of acute or chronic renal injury. Incidental note is made of an 8.3 x 9.3 x 7.8 cm simple cyst emanating from the superior pole of the left kidney. The bladder is not evaluated as it is decompressed by a Ayala catheter. Assessment & Plan - Diagnosis (1) Lewy body Parkinson disease Is this a current diagnosis for this admission?: Yes (2) GROGE (acute kidney injury) Is this a current diagnosis for this admission?: YesPlan: with dialysis creatinine fell from 8 to 6 (3) Rhabdomyolysis Qualifiers: Rhabdomyolysis type: non-traumatic Qualified Code(s): M62.82 - Rhabdomyolysis Is this a current diagnosis for this admission?: Yes (4) Bacteremia Is this a current diagnosis for this admission?: YesPlan: d11 antibiotics (ceftri, clinda, unasyn). Afebrile. Stop. (5) Thrombocytopenia Is this a current diagnosis for this admission?: Yes (6) DIC (disseminated intravascular coagulation) Is this a current diagnosis for this admission?: Yes (7) Abnormal LFTs (liver function tests) Is this a current diagnosis for this admission?: Yes (8) Decubital ulcer Qualifiers: Pressure ulcer location: heel Pressure ulcer stage: stage 2 Laterality: right Qualified Code(s): L89.612 - Pressure ulcer of right heel, stage 2 Is this a current diagnosis for this admission?: Yes (9) Impetigo bullosa Is this a current diagnosis for this admission?: Yes (10) UTI (urinary tract infection) Qualifiers: Urinary tract infection type: acute cystitis Hematuria presence: with hematuria Qualified Code(s): N30.01 - Acute cystitis with hematuria Is this a current diagnosis for this admission?: YesPlan: ureine grew pseudomonas sensitive cipro. Afebrile. Day 11 antibiotics. Will keep ayala for decubiti protection and stop unasyn.
[2016-09-22] MEDS: HEPARIN SOD (PORCINE) 5,000 UNIT/ML 1 ML SYRINGE SUBCUT SCH ×2 (11:40→22:49)
[2016-09-22] MEDS: FAMOTIDINE INJ/PF 20 MG/2 ML SDV IV SCH (11:40)
[2016-09-22] MEDS: MUPIROCIN 2% OINTMENT 22 GM TP SCH ×3 (11:41→18:26)
[2016-09-22] MEDS: RASAGILINE MESYLATE PO SCH (11:41)
[2016-09-22] MEDS: NORMAL SALINE 1000 ML 1,000 ML IV PRN (16:25)
--- NOTE | 2016-09-22 20:42 | PDOC PROGRESS REPORT ---
Subjective Progress Note for:: 09/22/16 Subjective:: Patient was laying comfortably in his bed. Patient seemed confused when seeing him today. He was unable to answer my questions. Urine production was at 500 mL yesterday which, still qualifies as nonoliguric. Physical Exam Vital Signs: Temp Pulse Resp BP Pulse Ox 98.3 F 67 20 149/68 H 93 09/22/16 15:48 09/22/16 19:00 09/22/16 15:48 09/22/16 15:48 09/22/16 15:48 Intake & Output 09/21/16 09/22/16 09/23/16 06:59 06:59 06:59 Intake Total 1550 1332 1583 Output Total 850 2500 250 Balance 700 -1168 1333 Weight 92.3 kg 89.1 kg General appearance: PRESENT: no acute distress, well-developed, well-nourished Head exam: PRESENT: atraumatic, normocephalic Mouth exam: PRESENT: moist, neck supple Neck exam: ABSENT: JVD, tracheal deviation Respiratory exam: PRESENT: clear to auscultation michael. ABSENT: accessory muscle use, chest wall tenderness, crackles, rales, rhonchi, tachypnea, wheezes Cardiovascular exam: PRESENT: diastolic murmur, RRR, +S1, +S2 GI/Abdominal exam: PRESENT: normal bowel sounds, soft. ABSENT: ascites, distended, firm, organomegaly, tenderness Extremities exam: PRESENT: pedal edema - -trace/1+. ABSENT: joint swelling Musculoskeletal exam: PRESENT: normal inspection. ABSENT: deformity, tenderness Neurological exam: PRESENT: altered, awake Skin exam: PRESENT: normal color. ABSENT: erythema Results Laboratory Results: 09/22/16 06:30 09/22/16 06:30 09/22/16 09/22/16 06:30 06:30 WBC 10.1 RBC 3.16 L Hgb 9.8 L Hct 28.6 L MCV 91 MCH 31.1 MCHC 34.3 RDW 13.5 Plt Count 225 Seg Neutrophils % 79.1 H Lymphocytes % 10.7 L Monocytes % 7.2 Eosinophils % 2.6 Basophils % 0.4 Absolute Neutrophils 8.0 Absolute Lymphocytes 1.1 Absolute Monocytes 0.7 Absolute Eosinophils 0.3 Absolute Basophils 0.0 Sodium 139.8 Potassium 4.3 Chloride 103 Carbon Dioxide 28 Anion Gap 9 BUN 57 H Creatinine 5.91 H Est GFR ( Amer) 11 L Est GFR (Non-Af Amer) 9 L Glucose 97 Calcium 7.6 L 09/20/16 09:20 Catheterized Urine Urine Culture - Final Pseudomonas Aeruginosa 09/10/16 09/11/16 09/11/16 19:15 01:16 07:17 Creatine Kinase 84224 H 94005 H 53664 H 09/14/16 09/15/16 09/15/16 05:10 04:23 04:25 Creatine Kinase 53153 H 7346 H Cancelled 09/17/16 04:29 Creatine Kinase 1521 H Impressions: Chest X-Ray 09/10/16 12:29 IMPRESSION: NO ACUTE RADIOGRAPHIC FINDING IN THE CHEST. Forearm X-Ray 09/10/16 12:30 IMPRESSION: NEGATIVE STUDY OF THE RIGHT FOREARM. NO RADIOGRAPHIC EVIDENCE OF ACUTE INJURY. Head CT 09/10/16 12:30 IMPRESSION: CHRONIC CHANGES OF ATROPHY AND MICROVASCULAR ISCHEMIA. NO ACUTE PROCESS. Pelvis X-Ray 09/10/16 12:30 IMPRESSION: NEGATIVE STUDY OF THE PELVIS. Renal Ultrasound 09/12/16 00:00 IMPRESSION: No evidence of acute or chronic renal injury. Incidental note is made of an 8.3 x 9.3 x 7.8 cm simple cyst emanating from the superior pole of the left kidney. The bladder is not evaluated as it is decompressed by a Naranjo catheter. Assessment & Plan - Diagnosis (1) GORGE (acute kidney injury) Is this a current diagnosis for this admission?: YesPlan: Creatinine looks to had made a slight improvement. Urine output is nonoliguric level. Will start lasix 20mg IV q12 and continue on dialysis for tomorrow. Awaiting families decision on whether they would like to continue dialysis as outpatient. (2) Bacteremia Is this a current diagnosis for this admission?: YesPlan: looks to have resolved, white count is remaining down and he has no fever. (3) Rhabdomyolysis Qualifiers: Rhabdomyolysis type: non-traumatic Qualified Code(s): M62.82 - Rhabdomyolysis Is this a current diagnosis for this admission?: YesPlan: Will draw a CPK level to see if it has gone down from the 1500 foreign it was at 5 days ago. (4) Hypertension Plan: continue on current medications, recommend outpatient monitoring and medication adjustment.
[2016-09-22] MEDS: DONEPEZIL HCL 5 MG TABLET PO SCH (22:49)
[2016-09-22] MEDS: FUROSEMIDE INJ/PF 20 MG/2 ML SDV IV SCH (22:50)
[2016-09-23 04:49] LABS: ABSOLUTE EOSINOPHILS # (AUTO) 0.2 10^3/uL (0.0-0.6); ABSOLUTE LYMPHOCYTES (AUTO) 1.2 10^3/uL (0.5-4.7); ABSOLUTE MONOCYTES (AUTO) 0.8 10^3/uL (0.1-1.4); ABSOLUTE NEUT (AUTO) 8.2 10^3/uL (1.7-8.2); BASOPHILS % (AUTO) 0.4 % (0-2); EOSINOPHILS % (AUTO) 2.2 % (0-6); HEMATOCRIT 28.1 % (37.9-51.0); HEMOGLOBIN 9.9 g/dL (13.5-17.0); HGB HCT DIFFERENCE 1.6; LYMPHOCYTES % (AUTO) 11.1 % (13-45); MEAN CORPUSCULAR HEMOGLOBIN 31.3 pg (27.0-33.4); MEAN CORPUSCULAR HGB CONC 35.1 g/dL (32.0-36.0); MEAN CORPUSCULAR VOLUME 89 fl (80-97); MONOCYTES % (AUTO) 8.1 % (3-13); RED BLOOD COUNT 3.15 10^6/uL (4.35-5.55); RED CELL DISTRIBUTION WIDTH 13.6 % (11.5-14.0); SEGMENTED NEUTROPHILS % (AUTO) 78.2 % (42-78); WHITE BLOOD COUNT 10.4 10^3/uL (4.0-10.5)
[2016-09-23 05:09] LABS: BLOOD UREA NITROGEN 71 mg/dL (7-20); CALCIUM 7.6 mg/dL (8.4-10.2); CARBON DIOXIDE 28 mmol/L (22-30); CREATININE RESULT 7.04 mg/dL (0.52-1.25); GLUCOSE 107 mg/dL (75-110); POTASSIUM 4.3 mmol/L (3.6-5.0); SODIUM 140.3 mmol/L (137-145)
[2016-09-23 05:11] LABS: ANION GAP 8 (5-19); CHLORIDE 104 mmol/L (98-107)
[2016-09-23] MEDS ORDERED: HEPARIN SOD (PORCINE) 1,000 UNIT/ML 10 ML VIAL IV PRN ×3 (07:00→12:18)
--- NOTE | 2016-09-23 07:34 | PDOC PROGRESS REPORT ---
Subjective Progress Note for:: 09/23/16 Subjective:: gibberish but did eat breakfast for a change. 1st stool p admitted Physical Exam Vital Signs: Temp Pulse Resp BP Pulse Ox 98.9 F 65 20 150/70 H 97 09/23/16 00:06 09/23/16 02:00 09/23/16 00:06 09/23/16 00:06 09/23/16 00:06 Intake & Output 09/21/16 09/22/16 09/23/16 07:59 07:59 07:59 Intake Total 1550 1332 2383 Output Total 850 2500 800 Balance 700 -1168 1583 Weight 203 lb 7.787 oz 196 lb 6.91 oz 198 lb 13.711 oz General appearance: PRESENT: no acute distress Respiratory exam: PRESENT: clear to auscultation michael Cardiovascular exam: ABSENT: diastolic murmur, irregular rhythm, systolic murmur GI/Abdominal exam: ABSENT: mass, organolmegaly, tenderness Extremities exam: ABSENT: pedal edema Neurological exam: ABSENT: oriented to situation Results Laboratory Results: 09/23/16 04:26 09/23/16 04:26 09/23/16 09/23/16 04:26 04:26 WBC 10.4 RBC 3.15 L Hgb 9.9 L Hct 28.1 L MCV 89 MCH 31.3 MCHC 35.1 RDW 13.6 Plt Count 208 Seg Neutrophils % 78.2 H Lymphocytes % 11.1 L Monocytes % 8.1 Eosinophils % 2.2 Basophils % 0.4 Absolute Neutrophils 8.2 Absolute Lymphocytes 1.2 Absolute Monocytes 0.8 Absolute Eosinophils 0.2 Absolute Basophils 0.0 Sodium 140.3 Potassium 4.3 Chloride 104 Carbon Dioxide 28 Anion Gap 8 BUN 71 H Creatinine 7.04 H Est GFR ( Amer) 9 L Est GFR (Non-Af Amer) 8 L Glucose 107 Calcium 7.6 L Magnesium 2.0 Iron 27.8 L TIBC 212 L % Saturation 13 Ferritin 368.00 09/20/16 09:20 Catheterized Urine Urine Culture - Final Pseudomonas Aeruginosa Impressions: Chest X-Ray 09/10/16 12:29 IMPRESSION: NO ACUTE RADIOGRAPHIC FINDING IN THE CHEST. Forearm X-Ray 09/10/16 12:30 IMPRESSION: NEGATIVE STUDY OF THE RIGHT FOREARM. NO RADIOGRAPHIC EVIDENCE OF ACUTE INJURY. Head CT 09/10/16 12:30 IMPRESSION: CHRONIC CHANGES OF ATROPHY AND MICROVASCULAR ISCHEMIA. NO ACUTE PROCESS. Pelvis X-Ray 09/10/16 12:30 IMPRESSION: NEGATIVE STUDY OF THE PELVIS. Renal Ultrasound 09/12/16 00:00 IMPRESSION: No evidence of acute or chronic renal injury. Incidental note is made of an 8.3 x 9.3 x 7.8 cm simple cyst emanating from the superior pole of the left kidney. The bladder is not evaluated as it is decompressed by a Naranjo catheter. Assessment & Plan - Diagnosis (1) Lewy body Parkinson disease Is this a current diagnosis for this admission?: YesPlan: rigid (2) GORGE (acute kidney injury) Is this a current diagnosis for this admission?: YesPlan: cr7 inspite of return of urine. Dialysis today and in 2d. Then stop & SNF hospice care (3) Rhabdomyolysis Qualifiers: Rhabdomyolysis type: non-traumatic Qualified Code(s): M62.82 - Rhabdomyolysis Is this a current diagnosis for this admission?: Yes (4) Bacteremia Is this a current diagnosis for this admission?: YesPlan: afebrile (5) Thrombocytopenia Is this a current diagnosis for this admission?: Yes (6) DIC (disseminated intravascular coagulation) Is this a current diagnosis for this admission?: Yes (7) Abnormal LFTs (liver function tests) Is this a current diagnosis for this admission?: Yes (8) Decubital ulcer Qualifiers: Pressure ulcer location: heel Pressure ulcer stage: stage 2 Laterality: right Qualified Code(s): L89.612 - Pressure ulcer of right heel, stage 2 Is this a current diagnosis for this admission?: Yes (9) Impetigo bullosa Is this a current diagnosis for this admission?: Yes (10) UTI (urinary tract infection) Qualifiers: Urinary tract infection type: acute cystitis Hematuria presence: with hematuria Qualified Code(s): N30.01 - Acute cystitis with hematuria Is this a current diagnosis for this admission?: YesPlan: colonized with pseudomonas. Observe
[2016-09-23] MEDS ORDERED: EPOETIN ALFA INJ 20000 UNIT/1 ML VIAL (RENAL) IV ONE (11:00)
[2016-09-23] MEDS ORDERED: FERUMOXYTOL 510 MG in NORMAL SALINE 100 ML IV ONE (11:00)
[2016-09-23] MEDS: FUROSEMIDE INJ/PF 20 MG/2 ML SDV IV SCH ×2 (12:31→21:54)
[2016-09-23] MEDS: RASAGILINE MESYLATE PO SCH (12:32)
[2016-09-23] MEDS: FAMOTIDINE INJ/PF 20 MG/2 ML SDV IV SCH (12:32)
[2016-09-23] MEDS: MUPIROCIN 2% OINTMENT 22 GM TP SCH ×3 (12:33→17:11)
[2016-09-23] MEDS: NORMAL SALINE 1000 ML 1,000 ML IV PRN (12:56)
[2016-09-23] MEDS: HEPARIN SOD (PORCINE) 5,000 UNIT/ML 1 ML SYRINGE SUBCUT SCH ×2 (12:57→21:59)
--- NOTE | 2016-09-23 16:41 | PDOC PROGRESS REPORT ---
Subjective Progress Note for:: 09/23/16 Subjective:: Patient was seen on hemodialysis today. Although he seems more awake and responsive , hisa speech is very incoherent and he mumbles and is very hard to understand anything he is safe. Urine output is relatively stable Review shows no real improvement in the numbers. He denies any history of chest pain shortness of breath. Vital signs are stable. Orders were discussed with the treating nurse. Physical Exam Vital Signs: Temp Pulse Resp BP Pulse Ox 98.5 F 70 20 138/61 H 97 09/23/16 12:13 09/23/16 14:00 09/23/16 12:13 09/23/16 12:13 09/23/16 12:13 Intake & Output 09/22/16 09/23/16 09/24/16 06:59 06:59 06:59 Intake Total 1332 2383 0 Output Total 2500 800 1700 Balance -1168 1583 -1700 Weight 89.1 kg 90.2 kg General appearance: PRESENT: no acute distress Respiratory exam: PRESENT: clear to auscultation michael. ABSENT: crackles, rhonchi Cardiovascular exam: PRESENT: diastolic murmur, RRR, +S1, +S2 GI/Abdominal exam: PRESENT: normal bowel sounds, soft. ABSENT: ascites, distended, firm, organomegaly, tenderness Neurological exam: PRESENT: awake. ABSENT: oriented to person, oriented to place Results Laboratory Results: 09/23/16 04:26 09/23/16 04:26 09/23/16 09/23/16 04:26 04:26 WBC 10.4 RBC 3.15 L Hgb 9.9 L Hct 28.1 L MCV 89 MCH 31.3 MCHC 35.1 RDW 13.6 Plt Count 208 Seg Neutrophils % 78.2 H Lymphocytes % 11.1 L Monocytes % 8.1 Eosinophils % 2.2 Basophils % 0.4 Absolute Neutrophils 8.2 Absolute Lymphocytes 1.2 Absolute Monocytes 0.8 Absolute Eosinophils 0.2 Absolute Basophils 0.0 Sodium 140.3 Potassium 4.3 Chloride 104 Carbon Dioxide 28 Anion Gap 8 BUN 71 H Creatinine 7.04 H Est GFR ( Amer) 9 L Est GFR (Non-Af Amer) 8 L Glucose 107 Calcium 7.6 L Magnesium 2.0 Iron 27.8 L TIBC 212 L % Saturation 13 Ferritin 368.00 09/10/16 09/11/16 09/11/16 19:15 01:16 07:17 Creatine Kinase 34417 H 94331 H 25554 H 09/14/16 09/15/16 09/15/16 05:10 04:23 04:25 Creatine Kinase 03990 H 7346 H Cancelled 09/17/16 04:29 Creatine Kinase 1521 H Impressions: Chest X-Ray 09/10/16 12:29 IMPRESSION: NO ACUTE RADIOGRAPHIC FINDING IN THE CHEST. Forearm X-Ray 09/10/16 12:30 IMPRESSION: NEGATIVE STUDY OF THE RIGHT FOREARM. NO RADIOGRAPHIC EVIDENCE OF ACUTE INJURY. Head CT 09/10/16 12:30 IMPRESSION: CHRONIC CHANGES OF ATROPHY AND MICROVASCULAR ISCHEMIA. NO ACUTE PROCESS. Pelvis X-Ray 09/10/16 12:30 IMPRESSION: NEGATIVE STUDY OF THE PELVIS. Renal Ultrasound 09/12/16 00:00 IMPRESSION: No evidence of acute or chronic renal injury. Incidental note is made of an 8.3 x 9.3 x 7.8 cm simple cyst emanating from the superior pole of the left kidney. The bladder is not evaluated as it is decompressed by a Naranjo catheter. Assessment & Plan - Diagnosis (3) GORGE (acute kidney injury) Is this a current diagnosis for this admission?: YesPlan: Secondary to acute rhabdomyolysis. Now non oliguric. Continues to get IV fluids. Currently,he is undergoing dialysis without any issues. dialysis is being supervised to ensure a safe and smooth procedure.Orders were discussed with the treating nurse Raegan. Poor improvement in his renal numbers and output is quite indicative that he is unlikely going to make a renal recovery. Would recommend stopping his dialysis and sending him to care home/hospice care as per discussions done earlier with Dr. Rodriguez. Unless mentioned my recommendation would be that this would be his last dialysis. Please let me know if any change of plans. I am going to sign off this case and please call me if any change in plans as mentioned earlier. (4) Encephalopathy Plan: Secondary to acute rhabdomyolysis and uremia.Improving he has got underlying Parkinson's MLO view body disease which gives a certain amount of incoherence and interactions (5) Lewy body Parkinson disease Is this a current diagnosis for this admission?: YesPlan: Status quo with deficits. (6) Rhabdomyolysis Qualifiers: Rhabdomyolysis type: non-traumatic Qualified Code(s): M62.82 - Rhabdomyolysis Is this a current diagnosis for this admission?: YesPlan: Follow-up on labs. Monitor (9) Bacteremia Is this a current diagnosis for this admission?: YesPlan: Off all antibiotics without any evidences of persistent or recurring infection
[2016-09-23] MEDS: DONEPEZIL HCL 5 MG TABLET PO SCH (21:53)
[2016-09-24 05:05] LABS: ABSOLUTE BASOPHILS # (AUTO) 0.1 10^3/uL (0.0-0.2); ABSOLUTE EOSINOPHILS # (AUTO) 0.1 10^3/uL (0.0-0.6); ABSOLUTE LYMPHOCYTES (AUTO) 1.1 10^3/uL (0.5-4.7); ABSOLUTE MONOCYTES (AUTO) 0.8 10^3/uL (0.1-1.4); ABSOLUTE NEUT (AUTO) 6.2 10^3/uL (1.7-8.2); BASOPHILS % (AUTO) 0.8 % (0-2); EOSINOPHILS % (AUTO) 1.7 % (0-6); HEMATOCRIT 27.9 % (37.9-51.0); HEMOGLOBIN 9.7 g/dL (13.5-17.0); HGB HCT DIFFERENCE 1.2; LYMPHOCYTES % (AUTO) 13.4 % (13-45); MEAN CORPUSCULAR HGB CONC 34.9 g/dL (32.0-36.0); MEAN CORPUSCULAR VOLUME 89 fl (80-97); RED BLOOD COUNT 3.14 10^6/uL (4.35-5.55); RED CELL DISTRIBUTION WIDTH 13.5 % (11.5-14.0); SEGMENTED NEUTROPHILS % (AUTO) 74.1 % (42-78); WHITE BLOOD COUNT 8.4 10^3/uL (4.0-10.5)
[2016-09-24 05:23] LABS: ANION GAP 6 (5-19); BLOOD UREA NITROGEN 46 mg/dL (7-20); CALCIUM 7.8 mg/dL (8.4-10.2); CARBON DIOXIDE 29 mmol/L (22-30); CHLORIDE 105 mmol/L (98-107); CREATININE RESULT 5.25 mg/dL (0.52-1.25); GLUCOSE 99 mg/dL (75-110); MAGNESIUM 1.9 mg/dL (1.6-2.3); POTASSIUM 4.2 mmol/L (3.6-5.0); SODIUM 139.9 mmol/L (137-145)
--- NOTE | 2016-09-24 07:16 | PDOC PROGRESS REPORT ---
Subjective Progress Note for:: 09/24/16 Subjective:: gibberish Physical Exam Vital Signs: Temp Pulse Resp BP Pulse Ox 99.1 F 63 20 150/70 H 96 09/23/16 23:19 09/24/16 02:00 09/23/16 23:19 09/23/16 23:19 09/23/16 23:19 Intake & Output 09/22/16 09/23/16 09/24/16 07:59 07:59 07:59 Intake Total 1332 2383 1200 Output Total 2500 800 2900 Balance -1168 1583 -1700 Weight 196 lb 6.91 oz 198 lb 13.711 oz 194 lb 7.163 oz General appearance: PRESENT: no acute distress Respiratory exam: PRESENT: clear to auscultation michael Cardiovascular exam: ABSENT: diastolic murmur, irregular rhythm, systolic murmur GI/Abdominal exam: ABSENT: mass, organolmegaly, tenderness Extremities exam: ABSENT: pedal edema Neurological exam: ABSENT: oriented to situation Psychiatric exam: PRESENT: appropriate affect Results Laboratory Results: 09/24/16 04:27 09/24/16 04:27 09/24/16 09/24/16 04:27 04:27 WBC 8.4 RBC 3.14 L Hgb 9.7 L Hct 27.9 L MCV 89 MCH 31.0 MCHC 34.9 RDW 13.5 Plt Count 173 Seg Neutrophils % 74.1 Lymphocytes % 13.4 Monocytes % 10.0 Eosinophils % 1.7 Basophils % 0.8 Absolute Neutrophils 6.2 Absolute Lymphocytes 1.1 Absolute Monocytes 0.8 Absolute Eosinophils 0.1 Absolute Basophils 0.1 Sodium 139.9 Potassium 4.2 Chloride 105 Carbon Dioxide 29 Anion Gap 6 BUN 46 H Creatinine 5.25 H Est GFR ( Amer) 13 L Est GFR (Non-Af Amer) 11 L Glucose 99 Calcium 7.8 L Magnesium 1.9 Impressions: Chest X-Ray 09/10/16 12:29 IMPRESSION: NO ACUTE RADIOGRAPHIC FINDING IN THE CHEST. Forearm X-Ray 09/10/16 12:30 IMPRESSION: NEGATIVE STUDY OF THE RIGHT FOREARM. NO RADIOGRAPHIC EVIDENCE OF ACUTE INJURY. Head CT 09/10/16 12:30 IMPRESSION: CHRONIC CHANGES OF ATROPHY AND MICROVASCULAR ISCHEMIA. NO ACUTE PROCESS. Pelvis X-Ray 09/10/16 12:30 IMPRESSION: NEGATIVE STUDY OF THE PELVIS. Renal Ultrasound 09/12/16 00:00 IMPRESSION: No evidence of acute or chronic renal injury. Incidental note is made of an 8.3 x 9.3 x 7.8 cm simple cyst emanating from the superior pole of the left kidney. The bladder is not evaluated as it is decompressed by a Naranjo catheter. Assessment & Plan - Diagnosis (1) Lewy body Parkinson disease Is this a current diagnosis for this admission?: YesPlan: to [facility] bed available (2) GORGE (acute kidney injury) Is this a current diagnosis for this admission?: YesPlan: final dialysis dropped cr from 7 to 5 (3) Rhabdomyolysis Qualifiers: Rhabdomyolysis type: non-traumatic Qualified Code(s): M62.82 - Rhabdomyolysis Is this a current diagnosis for this admission?: Yes (4) Bacteremia Is this a current diagnosis for this admission?: Yes (5) Thrombocytopenia Is this a current diagnosis for this admission?: Yes (6) DIC (disseminated intravascular coagulation) Is this a current diagnosis for this admission?: Yes (7) Abnormal LFTs (liver function tests) Is this a current diagnosis for this admission?: Yes (8) Decubital ulcer Qualifiers: Pressure ulcer location: heel Pressure ulcer stage: stage 2 Laterality: right Qualified Code(s): L89.612 - Pressure ulcer of right heel, stage 2 Is this a current diagnosis for this admission?: Yes (9) Impetigo bullosa Is this a current diagnosis for this admission?: Yes (10) UTI (urinary tract infection) Qualifiers: Urinary tract infection type: acute cystitis Hematuria presence: with hematuria Qualified Code(s): N30.01 - Acute cystitis with hematuria Is this a current diagnosis for this admission?: Yes
[2016-09-24] MEDS: MUPIROCIN 2% OINTMENT 22 GM TP SCH ×3 (12:20→17:38)
[2016-09-24] MEDS: RASAGILINE MESYLATE PO SCH (12:20)
[2016-09-24 16:39] LABS: ALBUMIN 2 2.2 g/dL (2.9-4.4); ALPHA-1-GLOBULIN 2 0.4 g/dL (0.0-0.4); GAMMA GLOBULIN 0.6 g/dL (0.4-1.8); PROTEIN TOTAL SERUM 4.5 g/dL (6.0-8.5)
[2016-09-24] MEDS: DONEPEZIL HCL 5 MG TABLET PO SCH (22:19)
[2016-09-25 04:54] LABS: ABSOLUTE BASOPHILS # (AUTO) 0.1 10^3/uL (0.0-0.2); ABSOLUTE EOSINOPHILS # (AUTO) 0.2 10^3/uL (0.0-0.6); ABSOLUTE LYMPHOCYTES (AUTO) 1.2 10^3/uL (0.5-4.7); ABSOLUTE NEUT (AUTO) 6.9 10^3/uL (1.7-8.2); BASOPHILS % (AUTO) 0.8 % (0-2); HEMATOCRIT 30.6 % (37.9-51.0); HEMOGLOBIN 10.6 g/dL (13.5-17.0); HGB HCT DIFFERENCE 1.2; LYMPHOCYTES % (AUTO) 12.6 % (13-45); MEAN CORPUSCULAR HEMOGLOBIN 31.4 pg (27.0-33.4); MEAN CORPUSCULAR HGB CONC 34.8 g/dL (32.0-36.0); MEAN CORPUSCULAR VOLUME 90 fl (80-97); MONOCYTES % (AUTO) 10.2 % (3-13); RED BLOOD COUNT 3.39 10^6/uL (4.35-5.55); RED CELL DISTRIBUTION WIDTH 13.8 % (11.5-14.0); SEGMENTED NEUTROPHILS % (AUTO) 74.4 % (42-78); WHITE BLOOD COUNT 9.3 10^3/uL (4.0-10.5)
[2016-09-25 05:05] LABS: ANION GAP 11 (5-19); BLOOD UREA NITROGEN 58 mg/dL (7-20); CALCIUM 8.2 mg/dL (8.4-10.2); CARBON DIOXIDE 29 mmol/L (22-30); CHLORIDE 103 mmol/L (98-107); GLUCOSE 96 mg/dL (75-110); POTASSIUM 4.3 mmol/L (3.6-5.0); SODIUM 143.2 mmol/L (137-145)
--- NOTE | 2016-09-25 09:34 | PDOC DISCHARGE SUMMARY ---
General - Admit/Disc Date/PCP Admission Date/Primary Care Provider: 09/10/16 15:45 RUPESH FERNÁNDEZ MD Discharge Date: 09/25/16 - Discharge Diagnosis (1) Lewy body Parkinson disease Is this a current diagnosis for this admission?: Yes (2) GORGE (acute kidney injury) Is this a current diagnosis for this admission?: Yes (3) Rhabdomyolysis Is this a current diagnosis for this admission?: Yes (4) Bacteremia Is this a current diagnosis for this admission?: Yes (5) Thrombocytopenia Is this a current diagnosis for this admission?: Yes (6) DIC (disseminated intravascular coagulation) Is this a current diagnosis for this admission?: Yes (7) Abnormal LFTs (liver function tests) Is this a current diagnosis for this admission?: Yes (8) Decubital ulcer Is this a current diagnosis for this admission?: Yes (9) Impetigo bullosa Is this a current diagnosis for this admission?: Yes (10) UTI (urinary tract infection) Is this a current diagnosis for this admission?: Yes - Additional Information Resuscitation Status: Full Code Discharge Diet: As Tolerated Discharge Activity: Supervised Activity Home Medications: Donepezil HCl 10 mg PO QHS 12/26/15 Rasagiline Mesylate [Azilect] 1 mg PO DAILY 12/26/15 History of Present Illness Patient complains of: altered mental status History of Present Illness: PATRICE WISDOM is a 71 year old male with lewy body dementia since last year on donepezil from [facility] with parkinsons syndrome on rasagiline from Dr Mendez. [facility] said to stop quetiapine. Last month pressure was 168, and I increased lisinopril to 40mg daily. Neighbor found him in same position for 2 days. He refused transport the first day. Hospital Course Hospital Course: After many liters of IVF and multiple dialysis sessions, his renal function has not improved; although he is no longer oliguric. In view of his lewy body dementia, Dr Barron has said more dialysis will not bring back renal function and would be very hard. He received antibotics for staph hominis in 2 blood cultures. His ayala is colonized with pseudomonas, but he is afebrile. He has formed bullae on his limbs and L hip not all of which are at pressure points. Mupirocin was applied for suspected bullous impetigo. His platelets fell and D dimer was abnormal. DIC was considered, but platelets came up. His brother from [place] has arranged palliative then hospice care at [place]. Physical Exam Vital Signs: Temp Pulse Resp BP Pulse Ox 97.9 F 61 22 H 152/70 H 100 09/25/16 03:22 09/25/16 03:22 09/25/16 03:22 09/25/16 03:22 09/25/16 03:22 Intake & Output 09/23/16 09/24/16 09/25/16 07:59 07:59 07:59 Intake Total 2383 1200 0 Output Total 800 2900 1150 Balance 1583 -1700 -1150 Weight 198 lb 13.711 oz 194 lb 7.163 oz General appearance: PRESENT: no acute distress Respiratory exam: ABSENT: clear to auscultation michael Cardiovascular exam: ABSENT: diastolic murmur, irregular rhythm, systolic murmur GI/Abdominal exam: ABSENT: mass, organolmegaly, tenderness Extremities exam: PRESENT: pedal edema Neurological exam: ABSENT: oriented to situation Psychiatric exam: PRESENT: appropriate affect Results Laboratory Results: 09/25/16 04:38 Labs- Last Values WBC 9.3 10^3/uL (4.0-10.5) 09/25/16 04:38 RBC 3.39 10^6/uL (4.35-5.55) L 09/25/16 04:38 Hgb 10.6 g/dL (13.5-17.0) L 09/25/16 04:38 Hct 30.6 % (37.9-51.0) L 09/25/16 04:38 MCV 90 fl (80-97) 09/25/16 04:38 MCH 31.4 pg (27.0-33.4) 09/25/16 04:38 MCHC 34.8 g/dL (32.0-36.0) 09/25/16 04:38 RDW 13.8 % (11.5-14.0) 09/25/16 04:38 Plt Count 224 10^3/uL (150-450) 09/25/16 04:38 Total Counted 100 09/10/16 13:32 Seg Neutrophils % 74.4 % (42-78) 09/25/16 04:38 Seg Neuts % (Manual) 95 % (42-78) H 09/10/16 13:32 Lymphocytes % 12.6 % (13-45) L 09/25/16 04:38 Lymphocytes % (Manual) 1 % (13-45) L 09/10/16 13:32 Monocytes % 10.2 % (3-13) 09/25/16 04:38 Monocytes % (Manual) 4 % (3-13) 09/10/16 13:32 Eosinophils % 2.0 % (0-6) 09/25/16 04:38 Eosinophils % (Manual) 0 % (0-6) 09/10/16 13:32 Basophils % 0.8 % (0-2) 09/25/16 04:38 Basophils % (Manual) 0 % (0-2) 09/10/16 13:32 Absolute Neutrophils 6.9 10^3/uL (1.7-8.2) 09/25/16 04:38 Abs Neuts (Manual) 11.9 10^3/uL (1.7-8.2) H 09/10/16 13:32 Absolute Lymphocytes 1.2 10^3/uL (0.5-4.7) 09/25/16 04:38 Abs Lymphs (Manual) 0.1 10^3/uL (0.5-4.7) L 09/10/16 13:32 Absolute Monocytes 1.0 10^3/uL (0.1-1.4) 09/25/16 04:38 Abs Monocytes (Manual) 0.5 10^3/uL (0.1-1.4) 09/10/16 13:32 Absolute Eosinophils 0.2 10^3/uL (0.0-0.6) 09/25/16 04:38 Absolute Eos (Manual) 0.0 10^3/uL (0.0-0.6) 09/10/16 13:32 Absolute Basophils 0.1 10^3/uL (0.0-0.2) 09/25/16 04:38 Abs Basophils (Manual) 0.0 10^3/uL (0.0-0.2) 09/10/16 13:32 Platelet Estimate Cancelled 09/10/16 12:30 Platelet Comment ADEQUATE 09/10/16 13:32 RBC Morph Comment NORMO-CYTIC/CHROMIC 09/10/16 13:32 PT 14.5 SEC (11.4-15.4) 09/13/16 05:35 INR 1.06 09/13/16 05:35 Fibrinogen 411 mg/dL (209-497) 09/13/16 05:35 D-Dimer 3.26 ug/mL (0.00-0.50) H 09/13/16 05:35 VBG pH 7.34 (7.30-7.42) 09/10/16 12:50 VBG pCO2 39.3 mmHg (35-63) 09/10/16 12:50 VBG HCO3 20.6 mmol/L (20-32) 09/10/16 12:50 VBG Base Excess -4.8 mmol/L 09/10/16 12:50 Sodium 139.9 mmol/L (137-145) 09/24/16 04:27 Potassium 4.2 mmol/L (3.6-5.0) 09/24/16 04:27 Chloride 105 mmol/L (98-107) 09/24/16 04:27 Carbon Dioxide 29 mmol/L (22-30) 09/24/16 04:27 Anion Gap 6 (5-19) 09/24/16 04:27 BUN 46 mg/dL (7-20) H 09/24/16 04:27 Creatinine 5.25 mg/dL (0.52-1.25) H 09/24/16 04:27 Est GFR ( Amer) 13 (>60) L 09/24/16 04:27 Est GFR (Non-Af Amer) 11 (>60) L 09/24/16 04:27 Glucose 99 mg/dL (75-110) 09/24/16 04:27 POC Glucose 92 mg/dL (70-110) 09/14/16 12:25 Lactic Acid 1.4 mmol/L (0.7-2.1) 09/10/16 13:32 Calcium 7.8 mg/dL (8.4-10.2) L 09/24/16 04:27 Ionized Calcium Dhaval 1.08 mmol/L (1.14-1.30) L 09/14/16 22:10 Phosphorus 5.0 mg/dL (2.5-4.5) H 09/13/16 05:35 Magnesium 1.9 mg/dL (1.6-2.3) 09/24/16 04:27 Iron 27.8 ug/dL (49-181) L 09/23/16 04:26 TIBC 212 ug/dL (250-450) L 09/23/16 04:26 % Saturation 13 % 09/23/16 04:26 Ferritin 368.00 ng/mL (17.9-464.0) 09/23/16 04:26 Total Bilirubin 0.7 mg/dL (0.2-1.3) 09/20/16 17:18 Direct Bilirubin 0.5 mg/dL (0.0-0.4) H 09/20/16 17:18 Indirect Bilirubin Not Reportable 09/20/16 17:18 Neonat Total Bilirubin Not Reportable 09/20/16 17:18 AST 70 U/L (17-59) H 09/20/16 17:18 ALT 147 U/L (21-72) H 09/20/16 17:18 Alkaline Phosphatase 57 U/L (38-126) 09/20/16 17:18 Creatine Kinase 1521 U/L (55-170) H 09/17/16 04:29 CK-MB (CK-2) 296.00 ng/mL (<4.55) H 09/10/16 13:32 Troponin I 0.233 ng/mL 09/10/16 13:32 Total Protein 4.5 g/dL (6.3-8.2) L 09/20/16 17:18 Albumin 2.3 g/dL (3.5-5.0) L 09/20/16 17:18 Urine Color GUIDO 09/10/16 12:50 Urine Appearance SLIGHTLY-CLOUDY 09/10/16 12:50 Urine pH 5.0 (5.0-9.0) 09/10/16 12:50 Ur Specific [place] 1.026 09/10/16 12:50 Urine Protein 100 mg/dL (NEGATIVE) H 09/10/16 12:50 Urine Glucose (UA) NEGATIVE mg/dL (NEGATIVE) 09/10/16 12:50 Urine Ketones NEGATIVE mg/dL (NEGATIVE) 09/10/16 12:50 Urine Blood LARGE (NEGATIVE) H 09/10/16 12:50 Urine Nitrite NEGATIVE (NEGATIVE) 09/10/16 12:50 Urine Bilirubin NEGATIVE (NEGATIVE) 09/10/16 12:50 Urine Urobilinogen 2.0 mg/dL (<2.0) H 09/10/16 12:50 Ur Leukocyte Esterase NEGATIVE (NEGATIVE) 09/10/16 12:50 Urine WBC (Auto) 0 /HPF 09/10/16 12:50 Urine RBC (Auto) 0 /HPF 09/10/16 12:50 Amorphous Sediment Auto TRACE /HPF 09/10/16 12:50 Urine Ascorbic Acid NEGATIVE (NEGATIVE) 09/10/16 12:50 Serum Alcohol < 10 mg/dL (NONE DETECTED) 09/10/16 13:32 Hepatitis A IgM Ab Negative (Negative) 09/13/16 05:35 Hep Bs Antigen Negative (Negative) 09/13/16 05:35 Hep B Core IgM Ab Negative (Negative) 09/13/16 05:35 Hepatitis C Antibody <0.1 s/co ratio (0.0-0.9) 09/13/16 05:35 Slides for Path Review Cancelled 09/10/16 12:30 Impressions: Chest X-Ray 09/10/16 12:29 IMPRESSION: NO ACUTE RADIOGRAPHIC FINDING IN THE CHEST. Forearm X-Ray 09/10/16 12:30 IMPRESSION: NEGATIVE STUDY OF THE RIGHT FOREARM. NO RADIOGRAPHIC EVIDENCE OF ACUTE INJURY. Head CT 09/10/16 12:30 IMPRESSION: CHRONIC CHANGES OF ATROPHY AND MICROVASCULAR ISCHEMIA. NO ACUTE PROCESS. Pelvis X-Ray 09/10/16 12:30 IMPRESSION: NEGATIVE STUDY OF THE PELVIS. Renal Ultrasound 09/12/16 00:00 IMPRESSION: No evidence of acute or chronic renal injury. Incidental note is made of an 8.3 x 9.3 x 7.8 cm simple cyst emanating from the superior pole of the left kidney. The bladder is not evaluated as it is decompressed by a Ayala catheter. Qualifiers PATEINT BEING DISCHARGED WITH ANY OF THE FOLLOWING DIAGNOSIS?: No Plan Discharge Plan: to [facility]. I will follow. DNR.
--- NOTE | 2016-09-25 13:23 | PDOC PROGRESS REPORT ---
Subjective Progress Note for:: 09/25/16 Subjective:: Patient was seen on hemodialysis today. Although he seems more awake and responsive , his speech is very incoherent and he mumbles and is very hard to understand anything he is safe. Urine output is relatively stable Vital signs are stable. Orders were discussed with the treating nurse. As per discussions done with Dr. Rodriguez he is being discharged to [facility]. Hopefully this one last dialysis could make a difference in helping his kidneys some. However, overall poor prognosis for renal recovery. Physical Exam Vital Signs: Temp Pulse Resp BP Pulse Ox 98.7 F 70 20 147/82 H 96 09/25/16 08:17 09/25/16 08:17 09/25/16 08:17 09/25/16 08:17 09/25/16 08:17 Intake & Output 09/24/16 09/25/16 09/26/16 06:59 06:59 06:59 Intake Total 1200 3 0 Output Total 2900 1550 325 Balance -1700 -1547 -325 Weight 88.2 kg 85.8 kg General appearance: PRESENT: no acute distress Respiratory exam: PRESENT: clear to auscultation michael. ABSENT: crackles, rhonchi Cardiovascular exam: PRESENT: diastolic murmur, RRR, +S1, +S2 GI/Abdominal exam: PRESENT: normal bowel sounds, soft. ABSENT: ascites, distended, firm, organomegaly, tenderness Skin exam: ABSENT: erythema, mottled Results Laboratory Results: 09/25/16 04:38 09/25/16 04:38 09/23/16 09/25/16 09/25/16 04:26 04:38 04:38 WBC 9.3 RBC 3.39 L Hgb 10.6 L Hct 30.6 L MCV 90 MCH 31.4 MCHC 34.8 RDW 13.8 Plt Count 224 Seg Neutrophils % 74.4 Lymphocytes % 12.6 L Monocytes % 10.2 Eosinophils % 2.0 Basophils % 0.8 Absolute Neutrophils 6.9 Absolute Lymphocytes 1.2 Absolute Monocytes 1.0 Absolute Eosinophils 0.2 Absolute Basophils 0.1 Sodium 143.2 Potassium 4.3 Chloride 103 Carbon Dioxide 29 Anion Gap 11 BUN 58 H Creatinine 6.90 H Est GFR ( Amer) 10 L Est GFR (Non-Af Amer) 8 L Glucose 96 Calcium 8.2 L Magnesium 2.0 Total Protein 4.5 L Albumin 2.2 L 09/20/16 10:21 Blood Blood Culture - Final NO GROWTH IN 5 DAYS 09/20/16 08:30 Blood Blood Culture - Final NO GROWTH IN 5 DAYS 09/10/16 09/11/16 09/11/16 19:15 01:16 07:17 Creatine Kinase 50084 H 10676 H 28672 H 09/14/16 09/15/16 09/15/16 05:10 04:23 04:25 Creatine Kinase 76588 H 7346 H Cancelled 09/17/16 04:29 Creatine Kinase 1521 H Impressions: Chest X-Ray 09/10/16 12:29 IMPRESSION: NO ACUTE RADIOGRAPHIC FINDING IN THE CHEST. Forearm X-Ray 09/10/16 12:30 IMPRESSION: NEGATIVE STUDY OF THE RIGHT FOREARM. NO RADIOGRAPHIC EVIDENCE OF ACUTE INJURY. Head CT 09/10/16 12:30 IMPRESSION: CHRONIC CHANGES OF ATROPHY AND MICROVASCULAR ISCHEMIA. NO ACUTE PROCESS. Pelvis X-Ray 09/10/16 12:30 IMPRESSION: NEGATIVE STUDY OF THE PELVIS. Renal Ultrasound 09/12/16 00:00 IMPRESSION: No evidence of acute or chronic renal injury. Incidental note is made of an 8.3 x 9.3 x 7.8 cm simple cyst emanating from the superior pole of the left kidney. The bladder is not evaluated as it is decompressed by a Naranjo catheter. Assessment & Plan - Diagnosis (3) GORGE (acute kidney injury) Is this a current diagnosis for this admission?: YesPlan: Secondary to acute rhabdomyolysis. Non oliguric. Currently,he is undergoing dialysis without any issues. dialysis is being supervised to ensure a safe and smooth procedure.Orders were discussed with the treating nurse Raegan. (4) Encephalopathy Plan: Secondary to acute rhabdomyolysis and uremia.Improving he has got underlying Parkinson's MLO view body disease which gives a certain amount of incoherence and interactions (5) Lewy body Parkinson disease Is this a current diagnosis for this admission?: YesPlan: Status quo with deficits. (6) Rhabdomyolysis Qualifiers: Rhabdomyolysis type: non-traumatic Qualified Code(s): M62.82 - Rhabdomyolysis Is this a current diagnosis for this admission?: Yes (8) Metabolic acidosis Plan: Resolved. (9) Bacteremia Is this a current diagnosis for this admission?: Yes
[2016-09-25] MEDS: MUPIROCIN 2% OINTMENT 22 GM TP SCH ×2 (14:08→14:09)
[2016-09-25] MEDS: RASAGILINE MESYLATE PO SCH (14:09)
[2016-09-25 15:30] VITALS: BP 166/69
== END 2016-09-25 16:40 | DRG 690 ==
LOC: ER 12:27 → UNDOADMIN 15:25 → EH 15:25 → ICU 17:18 → 3N 09-14 16:33
PROVIDERS: ADMIT Family Medicine; ATTEND Family Medicine
PROC: B54BZZA Ultrasonography of Right Lower Extremity Veins, Guidance (ICD-10-PCS; principal; 2016-09-11)
PROC: 06HM33Z Insertion of Infusion Device into Right Femoral Vein, Percutaneous Approach (ICD-10-PCS; 2016-09-11)
PROC: 5A1D60Z (ICD-10-PCS; 2016-09-11)
DX: N30.01 Acute cystitis with hematuria (principal); N17.9 Acute kidney failure, unspecified; M62.82 Rhabdomyolysis; E87.1 Hypo-osmolality and hyponatremia; E87.2 Acidosis; G20 Parkinson's disease; F02.80 Dementia in other diseases classified elsewhere, unspecified severity, without behavioral disturbance, psychotic disturbance, mood disturbance, and anxiety; R94.5 Abnormal results of liver function studies; L01.03 Bullous impetigo; L89.90 Pressure ulcer of unspecified site, unspecified stage; E83.51 Hypocalcemia; E83.39 Other disorders of phosphorus metabolism; I10 Essential (primary) hypertension; M19.90 Unspecified osteoarthritis, unspecified site; L89.612 Pressure ulcer of right heel, stage 2; N28.1 Cyst of kidney, acquired; D69.6 Thrombocytopenia, unspecified; Z51.5 Encounter for palliative care; Z99.2 Dependence on renal dialysis; Z85.828 Personal history of other malignant neoplasm of skin; Z79.82 Long term (current) use of aspirin; Z79.899 Other long term (current) drug therapy
CPT/HCPCS: 36415; 70450; 71010; 72170; 76775; 80048; 80053; 80074; 80307; 81001; 82330; 82550; 82553; 82728; 82803; 82962; 83540; 83550; 83605; 83735; 84100; 84165; 84484; 85025; 85379; 85384; 85610; 87040; 87077; 87086; 87088; 87186; 93005; 93010; 96360; 99291; C1752; G8978-GP; G8979-GP; J0295; J0515; J0610; J0696; J1644; J1940; J3490; J7030; J7060; Q0138; Q4081; S0028

== ENCOUNTER 2016-11-05 16:58 | Emergency (ER) | payer MEDICARE, OTHER ==
--- NOTE | 2016-11-05 17:59 | RADIOLOGY REPORT (SQ) ---
EXAM DESCRIPTION: SCAPULA BILATERAL COMPLETED DATE/TIME: 11/05/2016 5:38 pm REASON FOR STUDY: fall, scapula pain? COMPARISON: None. TECHNIQUE: Two views of the left scapula. Two views of the right scapula. LIMITATIONS: None. FINDINGS: Bones: No acute fracture. AC joint degenerative changes. Soft tissues: No significant finding IMPRESSION: No acute fracture. TECHNICAL DOCUMENTATION: JOB ID: [id number] [employer]- All Rights Reserved
--- NOTE | 2016-11-05 18:26 | ER Document Report ---
ED Fall - General Chief Complaint: Fall Stated Complaint: FALL BACK PAIN Time Seen by Provider: 11/05/16 17:14 Mode of Arrival: Ambulatory Information source: Patient Notes: Patient is a 71-year-old male with dementia from group home who presents to the ER via EMS today because they found him on the floor underneath his bed prior to arrival. They do not know how he got there, states that he is not ambulatory. He complained one time to EMS of some right scapular pain has, but nothing else. TRAVEL OUTSIDE OF THE [place] 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 Psychiatric Medical History: Reports: Hx Dementia Past Surgical History: Reports: Other - melanoma Review of Systems - Review of Systems Constitutional: No symptoms reported EENT: No symptoms reported Cardiovascular: No symptoms reported Respiratory: No symptoms reported Gastrointestinal: No symptoms reported Genitourinary: No symptoms reported Male Genitourinary: No symptoms reported Musculoskeletal: See HPI Skin: No symptoms reported Hematologic/Lymphatic: No symptoms reported Neurological/Psychological: No symptoms reported Physical Exam - Vital signs Vitals: Temp Pulse Resp BP Pulse Ox 97.5 F 63 16 185/75 H 100 11/05/16 17:12 11/05/16 17:12 11/05/16 17:12 11/05/16 17:12 11/05/16 17:12 - Notes Notes: PHYSICAL EXAMINATION: GENERAL: Elderly, demented, but in no acute distress. HEAD: Atraumatic, normocephalic. EYES: Pupils equal round and reactive to light, extraocular movements intact, sclera anicteric, conjunctiva are normal. NECK: Normal range of motion, supple without lymphadenopathy LUNGS: CTAB and equal. No wheezes rales or rhonchi. HEART: Regular rate and rhythm without murmurs ABDOMEN: Soft, no tenderness. No guarding, no rebound BACK: no vertebral tenderness, normal ROM GI/: no CVA tenderness EXTREMITIES: Normal range of motion, no pitting edema. No cyanosis. NEUROLOGICAL: Cranial nerves grossly intact. PSYCH:Demented SKIN: Warm, Dry, normal turgor, no rashes or lesions noted Course - Re-evaluation Re-evalutation: 11/05/16 18:25 patient is completely nontender on exam, pleasant, looking around. X-ray of bilateral scapula are negative for any acute pathology. There is no evidence of head injury. He is nontender to bilateral hips. Patient to go back to group home. - Vital Signs Vital signs: Temp Pulse Resp BP Pulse Ox 97.5 F 63 16 185/75 H 100 11/05/16 17:12 11/05/16 17:12 11/05/16 17:12 11/05/16 17:12 11/05/16 17:12 Discharge - Discharge Clinical Impression: Fall Qualifiers: Encounter type: initial encounter Qualified Code(s): W19.XXXA - Unspecified fall, initial encounter Condition: Stable Disposition: HOME, SELF-CARE Additional Instructions: Return immediately for any new or worsening symptoms. Follow up with primary care provider, call tomorrow to make followup appointment. Referrals: RUPESH FERNÁNDEZ MD [Primary Care Provider] - Follow up as needed
[2016-11-05 20:36] VITALS: BP 135/89
== END 2016-11-05 20:36 | disposition home or self-care (01) ==
LOC: ER 16:58
DX: M89.8X1 Other specified disorders of bone, shoulder (principal); W19.XXXA Unspecified fall, initial encounter; Y92.122 Bedroom in nursing home as the place of occurrence of the external cause; F03.90 Unspecified dementia, unspecified severity, without behavioral disturbance, psychotic disturbance, mood disturbance, and anxiety; I10 Essential (primary) hypertension; Z85.820 Personal history of malignant melanoma of skin
CPT/HCPCS: 99284